=== PATIENT | male | born 1950 | race Caucasian/White ===

== ENCOUNTER 2024-07-09 10:14 | Inpatient (IN) ==
--- NOTE | 2024-07-09 11:09 | Emergency Department Note ---
Impression & Plan SOB (shortness of breath), Transaminitis, Cough, Hypoxia ED Provider Note Provider: Rell Hicks MD DATE OF SERVICE: 07/09/2024 CHIEF COMPLAINT: Shortness of breath HISTORY OF PRESENT ILLNESS: Patient is a 74-year-old gentleman reports a history of heart issues [facility] due to [facility]ness of breath. Evidently last week or 2 has been more short of breath not eating well. Evidently his had difficulty getting around at this and actually had some difficulty getting to the cafeteria to eat and present. Extensive former prior smoker. Not eating and drinking much and feels thirsty. No leg swelling. Denies abdominal pain or significant chest pain. Again shortness of breath worse with exertion but no falls or syncope. Noted for medical staff at the infirmary at the jail to be hypoxic in the 80s and placed on mask at 10 L. Maybe a little bit of productive nature to the cough by his report. Denies confusion. PAST MEDICAL HISTORY: As noted above MEDICATIONS: Reviewed with the patient. Denies blood thinners. SOCIAL HISTORY: Former smoker, [facility] PHYSICAL EXAM: GENERAL: alert and oriented in no acute distress on stretcher with oxygen and guards at bedside Head: normocephalic and atraumatic EYES: No injection, discharge or icterus. EOMI. NECK: Trachea midline. ENT: Mucous membranes pink and moist. LUNGS: Airway patent. No retractions. Breath sounds grossly diminished faint crackles. HEART: Regular rate and rhythm. No chest wall tenderness ABDOMEN: Soft and non-tender, without guarding or rebound. SKIN: Acyanotic, warm, dry, without rashes EXTREMITIES: Without swelling, tenderness or deformity NEUROLOGICAL: No focal deficits. No aphasia. No facial droop or slurred speech. Ambulatory. EK bpm normal sinus rhythm. Left fascicular block with anterior T wave inversions. CONTINUOUS CARDIAC MONITORING: was ordered and showed a heart rate of 60s to 80s bpm in normal sinus rhythm Patient's laboratory studies and imaging reviewed. Differential includes Reactive airway disease, pneumonia, pneumothorax, COPD, CHF, infections, cardiac ischemia, pulmonary embolism, musculoskeletal, gastrointestinal, as well as other pathologies. IMPRESSION/MEDICAL DECISION MAKING: Patient with new oxygen requirement. Some history of smoking in the past. Denies significant chest pain. No significant swelling of the lower extremities. Received few 100 mL of IV fluid for EMS prior to arrival. Not swelling in the legs but reports a history of fluid overload. Do not see significant past medical records in our system here at the hospital. Blood work here with a slight leukocytosis 12.5. Hemoglobin 12.5 not severely diminished. Does have hypernatremia of 148. Creatinine 1.1 BUN elevated at 64. Question if there is some component of dehydration as he has had decreased intake and the high sodium here. Do incidentally note the bilirubin AST ALT and alkaline phosphatase are all just mildly elevated but not having significant pain in the right upper quadrant or nausea or vomiting by his report. Does not seem consistent with necessarily acute cholecystitis. May be in relation to his general illness and dehydration. Do not feel we need additional abdominal imaging emergently at this time in the ER. Troponin and BNP completed as well as COVID test. CT angiogram of the chest given his limited mobility and shortness of breath weaned to 4 L here does not show evidence of a pulmonary embolism but some pneumomediastinum without clear etiology as well as some circumferential thickening around the esophagus and interstitial thickening and airspace opacities questioning pulmonary fibrosis are noted. BNP not significantly elevated 62 and troponin 48.5. Will give additional 500 cc IV fluid bolus. Will cover empirically with a dose of Zosyn for any underlying infectious pathology. Discussed with pulmonary Dr. Watts the findings and testing results and agree with him that likely a little bit of barotrauma from cough caused the slight pneumomediastinum. Will avoid positive pressure/flutter valve and utilize antitussives to help with cough and discussion with pulmonary. Will trial a dose of steroid and based on inflammatory markers (ESR/CRP) if elevated would continue the steroids. Will bring in for hydration and weaning of his oxygen. Hospitalist was contacted. Do not believe this represents Boerhaave syndrome or esophageal perforation. DIAGNOSIS: Hypoxia, hyponatremia, dehydration, cough, pneumomediastinum DISPOSITION: Hospitalist will evaluate Patient was agreeable with this plan. Critical Care I have personally spent 48 minutes of critical care time in the direct management of this patient. This includes bedside care, interpretation of diagnostic studies, and testing, discussion with consultants, patient, and other required patient management activities. These 48 minutes is in excess of all separately billable procedures. Past Med/Surg History Problem List (Updated 07/09/24 @ 16:10 by Rell Hicks M.D.) Hypoxia (Acute) Cough (Acute) Transaminitis (Acute) GERD (gastroesophageal reflux disease) HTN (hypertension) SOB (shortness of breath) (Acute) Chest pain (Acute) Unstable angina (Acute) Unstable angina (Acute) Surgical History (Updated 07/09/24 @ 15:16 by CAMILLE Dennis) H/O shoulder surgery Family History (Updated 07/09/24 @ 15:16 by CAMILLE Dennis) Other Cancer Social History Smoking Status: Former smoker Feels Safe at Home: Yes Allergies Allergies Allergy/AdvReac Type Severity Reaction Status Date / Time SODIUM PENTANYL Allergy Severe violence Uncoded 07/14/14 02:32 Home Meds Home Medications Medication Instructions Recorded Confirmed atorvastatin 40 mg tablet 40 mg PO HS #0 tabs 07/14/14 07/09/24 amlodipine 10 mg tablet 10 mg PO DAILY 07/09/24 07/09/24 Results & Data (ED) Vital Signs Vital Signs - 24 hr 07/09/24 10:25 07/09/24 10:26 07/09/24 10:30 Temperature 37.4 C Temperature Source Oral Pulse Rate 76 81 Pulse Rate from SpO2 Sensor Respiratory Rate 20 Respiratory Effort / Characteristics Short of Breath Blood Pressure 97/59 L 117/70 Blood Pressure Mean 71 84 Pulse Oximetry 96 Oxygen Delivery Method Room Air Oxygen Flow Rate Sepsis Recent Fever Within 48 Hours No Sepsis New/Unexplained Change in Mental Status No Sepsis Action Taken by Nursing No Action Required Oxygen Flow Rate - Titration Pulse Oximetry Post Tiitration 07/09/24 10:36 07/09/24 10:48 07/09/24 10:48 Temperature Temperature Source Pulse Rate 73 Pulse Rate from SpO2 Sensor 73 Respiratory Rate 20 Respiratory Effort / Characteristics Blood Pressure Blood Pressure Mean Pulse Oximetry 98 87 L 87 L Oxygen Delivery Method Nasal Cannula Nasal Cannula Oxygen Flow Rate 2 2 Sepsis Recent Fever Within 48 Hours Sepsis New/Unexplained Change in Mental Status Sepsis Action Taken by Nursing Oxygen Flow Rate - Titration 4 Pulse Oximetry Post Tiitration 90 07/09/24 10:57 07/09/24 11:00 07/09/24 11:03 Temperature Temperature Source Pulse Rate 76 74 Pulse Rate from SpO2 Sensor 76 74 Respiratory Rate 19 23 Respiratory Effort / Characteristics Blood Pressure 137/81 Blood Pressure Mean 109 Pulse Oximetry 90 96 Oxygen Delivery Method Oxygen Flow Rate Sepsis Recent Fever Within 48 Hours Sepsis New/Unexplained Change in Mental Status Sepsis Action Taken by Nursing Oxygen Flow Rate - Titration Pulse Oximetry Post Tiitration 07/09/24 11:30 07/09/24 11:30 07/09/24 11:46 Temperature Temperature Source Pulse Rate 77 Pulse Rate from SpO2 Sensor 77 Respiratory Rate 17 Respiratory Effort / Characteristics Blood Pressure 171/72 H Blood Pressure Mean 93 Pulse Oximetry 95 96 Oxygen Delivery Method Nasal Cannula Oxygen Flow Rate 4 Sepsis Recent Fever Within 48 Hours Sepsis New/Unexplained Change in Mental Status Sepsis Action Taken by Nursing Oxygen Flow Rate - Titration 2 Pulse Oximetry Post Tiitration 93 07/09/24 11:48 07/09/24 12:00 07/09/24 12:03 Temperature Temperature Source Pulse Rate 74 76 Pulse Rate from SpO2 Sensor 74 77 Respiratory Rate 29 H 42 H Respiratory Effort / Characteristics Blood Pressure 146/86 H Blood Pressure Mean 106 Pulse Oximetry 90 85 L Oxygen Delivery Method Oxygen Flow Rate Sepsis Recent Fever Within 48 Hours Sepsis New/Unexplained Change in Mental Status Sepsis Action Taken by Nursing Oxygen Flow Rate - Titration Pulse Oximetry Post Tiitration 07/09/24 12:21 07/09/24 12:30 07/09/24 12:30 Temperature Temperature Source Pulse Rate 66 Pulse Rate from SpO2 Sensor 66 Respiratory Rate 20 Respiratory Effort / Characteristics Blood Pressure 132/76 132/76 Blood Pressure Mean 99 99 Pulse Oximetry 97 Oxygen Delivery Method Oxygen Flow Rate Sepsis Recent Fever Within 48 Hours Sepsis New/Unexplained Change in Mental Status Sepsis Action Taken by Nursing Oxygen Flow Rate - Titration Pulse Oximetry Post Tiitration 07/09/24 12:35 Temperature Temperature Source Pulse Rate 67 Pulse Rate from SpO2 Sensor 67 Respiratory Rate 34 H Respiratory Effort / Characteristics Blood Pressure Blood Pressure Mean Pulse Oximetry 92 Oxygen Delivery Method Oxygen Flow Rate Sepsis Recent Fever Within 48 Hours Sepsis New/Unexplained Change in Mental Status Sepsis Action Taken by Nursing Oxygen Flow Rate - Titration Pulse Oximetry Post Tiitration Laboratory Data 07/09/24 11:00 07/09/24 11:00 Lab Results 07/09/24 07/09/24 Range/Units 11:00 11:12 WBC 12.51 H (4.8-10.8) K/ul RBC 4.64 L (4.70-6.10) M/uL Hgb 12.5 L (14.0-18.0) g/dl POC Hgb 12.6 L (14.0-18.0) g/dl Hct 40.0 L (42.0-52.0) % POC Hct 37 L (42-52) % MCV 86.2 (80.0-100.0) fL MCH 26.9 (25.0-34.0) pg MCHC 31.3 L (32.0-36.0) g/dL RDW Std Deviation 45.1 (36.4-46.3) fL RDW Coeff of Allen 16.1 H (11.5-14.5) % Plt Count 474 H (130-400) K/uL MPV 9.3 L (9.4-12.4) fL Immature Gran % (Auto) 0.9 % Neut % (Auto) 84.2 % Lymph % (Auto) 6.6 % Garvin % (Auto) 7.4 % Eos % (Auto) 0.6 % Baso % (Auto) 0.3 % Neut # (Auto) 10.52 H (1.40-6.50) K/uL Lymph # (Auto) 0.83 L (1.20-3.40) K/uL Garvin # (Auto) 0.93 H (0.11-0.59) K/uL Eos # (Auto) 0.08 (0.00-0.50) K/uL Baso # (Auto) 0.04 (0.00-0.20) K/uL Immature Gran # (Auto) 0.11 (0.01-0.20) K/uL PT 13.8 H (9.0-12.0) Seconds INR 1.3 H (0.9-1.1) APTT 33 H (21-31) Seconds PTT Ratio 1.2 POC Sodium 149 H (135-144) mmol/L Sodium 148 H (136-145) mmol/L POC Potassium 4.1 (3.3-5.0) mmol/L Potassium 4.1 (3.5-5.1) mmol/L POC Chloride 115 H (101-112) mmol/L Chloride 112 H (98-107) mmol/L Carbon Dioxide 28 (21-32) mmol/L POC Total CO2 25 (24-31) mmol/L Anion Gap 8 (3-11) POC Anion Gap 13.0 L (16-25) mmol/L POC BUN 54 H (7-18) mg/dl BUN 64 H (6-23) mg/dl Creatinine 1.18 (0.6-1.4) mg/dl POC Creatinine 1.4 H (0.6-1.3) mg/dl Est Cr Clr Drug Dosing 54.9 ml/min Est GFR ( Amer) 70.0 ml/min Est GFR (Non-Af Amer) 60.4 ml/min BUN/Creatinine Ratio 54.2 H (10-20) Glucose 114 H (70-99(Fasting)) mg/dl POC Glucose (other) 115 H (70-99) mg/dl Calcium 9.7 (8.6-10.3) mg/dl POC Ioniz Calcium Sindhu 1.19 (1.12-1.32) mmol/l Magnesium 2.8 H (1.7-2.4) mg/dl Total Bilirubin 3.3 H (0.2-1.0) mg/dl AST 106 H (13-39) U/L ALT 114 H (7-52) U/L Alkaline Phosphatase 187 H (34-104) U/L Troponin I High Sens 48.5 H (0-20) pg/ml B-Natriuretic Peptide 62 (0-100) pg/ml Total Protein 8.1 (6.0-8.3) gm/dl Albumin 3.1 L (3.4-5.0) gm/dl Globulin 5.0 H (2.5-4.0) gm/dl Albumin/Globulin Ratio 0.6 L (0.9-2) Procalcitonin 0.59 H (0-0.5) ng/ml Adenovirus (PCR) Not Detected (NotDetected) B. pertussis DNA (PCR) Not Detected (NotDetected) B.parapertussis DNA PCR Not Detected (NotDetected) C. pneumoniae DNA (PCR) Not Detected (NotDetected) Coronavirus OC43 (PCR) Not Detected (NotDetected) Coronavirus HKU1 (PCR) Not Detected (NotDetected) Coronavirus 229E (PCR) Not Detected (NotDetected) SARS-CoV-2 (PCR) Not Detected (NotDetected) Coronavirus NL63 (PCR) Not Detected (NotDetected) Human Metapneumovir PCR Not Detected (NotDetected) Influenza Type A (PCR) Not Detected (NotDetected) Influenza Type B (PCR) Not Detected (NotDetected) M. pneumoniae (PCR) Not Detected (NotDetected) Parainfluenza 1 (PCR) Not Detected (NotDetected) Parainfluenza 2 (PCR) Not Detected (NotDetected) Parainfluenza 3 (PCR) Not Detected (NotDetected) Parainfluenza 4 (PCR) Not Detected (NotDetected) RSV (PCR) Not Detected (NotDetected) Entero/Rhino (PCR) Not Detected (NotDetected) Administered Medications Discontinued Medications Piperacillin Sod/Tazobactam Sod (Zosyn) 4.5 gm in 100 mls @ 200 mls/hr IV NOW ONE Stop: 07/09/24 12:50 Last Infusion: 07/09/24 13:46 Dose: Infused Documented By: Admin: 07/09/24 12:47 Dose: 200 mls/hr Documented By: GIDEON Sodium Chloride (Nss) 500 mls @ 999 mls/hr IV .Q31M ONE Stop: 07/09/24 12:58 Last Infusion: 07/09/24 13:46 Dose: Infused Documented By: Admin: 07/09/24 12:48 Dose: 999 mls/hr Documented By: GIDEON Ioversol (Optiray 320 125ml) 119 ml IV ONCE ONE Stop: 07/09/24 11:20 Last Admin: 07/09/24 11:19 Dose: 119 ml Documented By: ANNA MARIE Methylprednisolone (Methylprednisolone 125 Mg/2 Ml Vial) 60 mg IV NOW STA Stop: 07/09/24 13:48 Last Admin: 07/09/24 15:15 Dose: 60 mg Documented By: BS Imaging Data Radiologist's Impression: Chest CTA 07/09/24 10:39 CHEST CTA for PULMONARY ARTERIES CT DOSE: 682.66 mGy.cm HISTORY: Dyspnea TECHNIQUE: Multiaxial CT images of the chest were performed following the intravenous administration of contrast to evaluate the pulmonary arteries. 3D/Maximal intensity projection images were also obtained. Sagittal and coronal reformations were also reviewed. A dose lowering technique was utilized adhering to the principles of ALARA. COMPARISON STUDY: None. FINDINGS: There are multiple old mild chronic compression deformity is within the mid to lower thoracic spine. No acute fractures identified. Postoperative changes within the left humeral head. Limited views of the upper abdomen demonstrate a normal spleen and right adrenal gland. The left adrenal gland is not included on this study. There are few punctate calcified granulomas within the spleen. Normal thyroid gland. Hewh-yc-[id number] circumferential thickening throughout the esophagus with a tiny hiatus hernia. No mediastinal or hilar lymphadenopathy. The heart is mildly enlarged. No pleural or pericardial effusions. Mild calcified plaque within the normal caliber thoracic aorta. No evidence for an aortic dissection. Mild coronary artery calcifications are noted. No filling defects within the pulmonary arteries to suggest a pulmonary embolus. No pneumothorax. Pneumomediastinum is noted. The central airways are patent. The etiology of the pneumomediastinum is not clearly identified on this study. There are low lung volumes with peripheral and basilar predominant interstitial thickening and scattered airspace opacities. The majority these airspace opacities demonstrate a groundglass appearance. There is mild bronchiectasis. There is a 6 mm left lower lobe nodule on image 56. IMPRESSION: 1. No evidence for a pulmonary embolus. 2. Pneumomediastinum without clear etiology on this study. 3. Xrvb-kh-[id number] circumferential thickening throughout the esophagus. 4. Peripheral interstitial thickening and patchy airspace opacities which favors pulmonary fibrosis. A superimposed viral/atypical pneumonitis also remains in the differential diagnosis. 5. A 6 mm nodule within the left lower lobe. Follow-up recommended as described above. 6. Additional findings as described above. Please refer to below summary of Fleischner criteria recommendations for follow- up of incidental CT nodules (Latrell Emanuel, Guidelines for management of small pulmonary nodules detected on CT scans: A statement from the Fleischner Society, Radiology 237: [phone].) SOLID NODULES Solitary nodule size: <6 mm * Low risk patients: no follow-up needed * high risk patients: optional CT at 12 months Solitary nodule size: 6-8 mm * Low risk patients: follow-up at 6-12 months, then consider further follow-up at 18-24 months * high risk patients: initial follow-up CT at 6-12 months and then at 18-24 months if no change Solitary nodule size: >8 mm * either low or high risk patients - consider follow-up CT at 3 months, and/or CT-PET, and/or biopsy Multiple nodules size: <6 mm * Low risk patients: no routine follow-up * high risk patients: optional CT at 12 months Multiple nodules size: 6-8 mm * Low risk patients: follow-up at 3-6 months, then consider further follow-up at 18-24 months * high risk patients: follow-up at 3-6 months, then at 18-24 months if no change Multiple nodules size: >8 mm * Low risk patients: follow-up at 3-6 months, then consider further follow-up at 18-24 months * high risk patients: follow-up at 3-6 months, then at 18-24 months if no change Note: newly detected indeterminate nodule in persons 35 years of age or older. * Low risk patients: minimal or absent history of smoking and/or other known risk factors * high risk patients: history of smoking or of other known risk factors (e.g. first degree relative with lung cancer, or exposure to asbestos, radon, uranium) * if a nodule up to 8 mm is partly solid or is ground glass further follow-up is required after 24 months to exclude possible slow growing adenocarcinoma (ARCHIE) SUBSOLID NODULES Solitary pure ground-glass nodule * nodule size <6 mm - no CT follow-up required * nodule size >=6 mm - follow-up CT at 6-12 months, then every 2 years until 5 years Solitary part-solid nodule * nodule size <6 mm - no CT follow-up required * nodule size >=6 mm - follow-up CT at 3-6 months. If unchanged, and solid component remains <6 mm, then annual follow-up for 5 years Multiple subsolid nodules * nodule size <6 mm - follow-up CT at 3-6 months, consider further follow-up at 2 and 4 years if stable * nodule size >=6 mm - follow-up CT at 3-6 months, subsequent management based on the most suspicious nodule(s) ACT 112: Positive. There are findings on this exam that require communication between the performing entity and the patient following Patient Test Result Information Act ([place] Act 112) guidelines. Electronically signed by: Duran Brandt M.D. 07/09/2024 11:54 AM Chest X-Ray 07/09/24 10:39 SINGLE VIEW CHEST CLINICAL HISTORY: Dyspnea FINDINGS: An AP, portable, upright chest radiograph is compared to study dated 07/14/2014. The examination is degraded by portable technique and apical lordotic positioning. The heart is enlarged. The pulmonary vasculature is not congested. There is diffuse interstitial thickening and subpleural reticulation. More focal airspace opacities are seen in the mid to lower lungs bilaterally, greater on the right. No large pleural effusion or pneumothorax is seen. The skeletal structures are osteopenic. The bony thorax is grossly intact. Postsurgical change is seen in the left proximal humerus. IMPRESSION: 1. Cardiomegaly without radiographic evidence of congestive failure. 2. Findings suggest chronic interstitial/fibrotic lung disease. This is new from 2013. 3. There are more focal airspace opacities in the mid to lower lungs bilaterally. A superimposed pneumonia is not excluded. Clinical correlation will be required and radiographic follow-up is recommended ACT 112: Negative or not required by law. Electronically signed by: Scout Felton M.D. 07/09/2024 11:08 AM Discharge Plan Visit Data Chief Complaint: Respiratory Problems Stated Complaint: SOB ED Provider: Rell Hicks Discharge Problem: SOB (shortness of breath), Transaminitis, Cough, Hypoxia Patient Disposition: Being Evaluated by Hospitalist Discharge Instructions Interventions: ED Discharge Assessment Last Done: 07/09/24 15:51
--- NOTE | 2024-07-09 11:10 | XRay Report ---
SINGLE VIEW CHEST CLINICAL HISTORY: Dyspnea FINDINGS: An AP, portable, upright chest radiograph is compared to study dated 07/14/2014. The examina tion is degraded by portable technique and apical lordotic positioning. The heart is enlarged. The pu lmonary vasculature is not congested. There is diffuse interstitial thickening and subpleural reticul ation. More focal airspace opacities are seen in the mid to lower lungs bilaterally, greater on the r ight. No large pleural effusion or pneumothorax is seen. The skeletal structures are osteopenic. The bony thorax is grossly intact. Postsurgical change is seen in the left proximal humerus. IMPRESSION: 1. Cardiomegaly without radiographic evidence of congestive failure. 2. Findings suggest chronic interstitial/fibrotic lung disease. This is new from 2013. 3. There are more focal airspace opacities in the mid to lower lungs bilaterally. A superimposed pneu monia is not excluded. Clinical correlation will be required and radiographic follow-up is recommende d ACT 112: Negative or not required by law. Electronically signed by: Scout Felton M.D. 07/09/2024 11:08 AM
--- NOTE | 2024-07-09 11:13 | Electrocardiogram Report ---
Test Reason : Blood Pressure : */* mmHG Vent. Rate : 73 BPM Atrial Rate : 73 BPM P-R Int : 136 ms QRS Dur : 118 ms QT Int : 432 ms P-R-T Axes : 9 -45 51 degrees QTcB Int : 475 ms Normal sinus rhythm Left anterior fascicular block Left ventricular hypertrophy with QRS widening ( R in aVL , [place] product ) Right bundle branch block with repolarization abnormality Abnormal ECG When compared with ECG of 14-Jul-2014 02:35, Left anterior fascicular block is now Present Right bundle branch block now present Confirmed by Shashi Jiang ([id number]) on 07/09/2024 11:12:51 AM Referred By: Confirmed By: Shashi Jiang
[2024-07-09] MEDS: OPTIRAY 320 125ml IV ONE (11:19)
[2024-07-09 11:26] LABS: iSTAT Creatinine 1.4 mg/dl (0.6-1.3); iSTAT Hemoglobin 12.6 g/dl (14.0-18.0); iSTAT Ionized Calcium 1.19 mmol/l (1.12-1.32); iSTAT Potassium 4.1 mmol/L (3.3-5.0)
[2024-07-09 11:56] LABS: Basophils # (auto) 0.04 K/uL (0.00-0.20); Basophils % (auto) 0.3 %; Eosinophils # (auto) 0.08 K/uL (0.00-0.50); Eosinophils % (auto) 0.6 %; Hemoglobin 12.5 g/dl (14.0-18.0); Immature Granulocytes # (auto) 0.11 K/uL (0.01-0.20); Immature Granulocytes % (auto) 0.9 %; Lymphocytes # (auto) 0.83 K/uL (1.20-3.40); Lymphocytes % (auto) 6.6 %; Mean Corpuscular Hemoglobin 26.9 pg (25.0-34.0); Mean Corpuscular Hgb Conc 31.3 g/dL (32.0-36.0); Mean Corpuscular Volume 86.2 fL (80.0-100.0); Mean Platelet Volume 9.3 fL (9.4-12.4); Monocytes # (auto) 0.93 K/uL (0.11-0.59); Monocytes % (auto) 7.4 %; Neutrophils # (auto) 10.52 K/uL (1.40-6.50); Neutrophils % (auto) 84.2 %; Platelet Count 474 K/uL (130-400); RDW Coefficient of Variation 16.1 % (11.5-14.5); RDW Standard Deviation 45.1 fL (36.4-46.3); Red Blood Count 4.64 M/uL (4.70-6.10); White Blood Count 12.51 K/ul (4.8-10.8)
--- NOTE | 2024-07-09 11:56 | CT Scan Report ---
CHEST CTA for PULMONARY ARTERIES CT DOSE: 682.66 mGy.cm HISTORY: Dyspnea TECHNIQUE: Multiaxial CT images of the chest were performed following the intravenous administration of contrast to evaluate the pulmonary arteries. 3D/Maximal intensity projection images were also obta ined. Sagittal and coronal reformations were also reviewed. A dose lowering technique was utilized a dhering to the principles of ALARA. COMPARISON STUDY: None. FINDINGS: There are multiple old mild chronic compression deformity is within the mid to lower thorac ic spine. No acute fractures identified. Postoperative changes within the left humeral head. Limited views of the upper abdomen demonstrate a normal spleen and right adrenal gland. The left adrenal glan d is not included on this study. There are few punctate calcified granulomas within the spleen. Laly l thyroid gland. Huzo-sp-qmggbeeh circumferential thickening throughout the esophagus with a tiny hia tus hernia. No mediastinal or hilar lymphadenopathy. The heart is mildly enlarged. No pleural or javan cardial effusions. Mild calcified plaque within the normal caliber thoracic aorta. No evidence for an aortic dissection. Mild coronary artery calcifications are noted. No filling defects within the pulm onary arteries to suggest a pulmonary embolus. No pneumothorax. Pneumomediastinum is noted. The centr al airways are patent. The etiology of the pneumomediastinum is not clearly identified on this study. There are low lung volumes with peripheral and basilar predominant interstitial thickening and scatt ered airspace opacities. The majority these airspace opacities demonstrate a groundglass appearance. There is mild bronchiectasis. There is a 6 mm left lower lobe nodule on image 56. IMPRESSION: 1. No evidence for a pulmonary embolus. 2. Pneumomediastinum without clear etiology on this study. 3. Blcz-nd-jihkjhtf circumferential thickening throughout the esophagus. 4. Peripheral interstitial thickening and patchy airspace opacities which favors pulmonary fibrosis. A superimposed viral/atypical pneumonitis also remains in the differential diagnosis. 5. A 6 mm nodule within the left lower lobe. Follow-up recommended as described above. 6. Additional findings as described above. Please refer to below summary of Fleischner criteria recommendations for follow-up of incidental CT n odules (Latrell Emanuel, Guidelines for management of small pulmonary nodules detected on CT scans: A sta tement from the Fleischner Society, Radiology 237: [id number].) SOLID NODULES Solitary nodule size: <6 mm * Low risk patients: no follow-up needed * high risk patients: optional CT at 12 months Solitary nodule size: 6-8 mm * Low risk patients: follow-up at 6-12 months, then consider further follow-up at 18-24 months * high risk patients: initial follow-up CT at 6-12 months and then at 18-24 months if no change Solitary nodule size: >8 mm * either low or high risk patients - consider follow-up CT at 3 months, and/or CT-PET, and/or biopsy Multiple nodules size: <6 mm * Low risk patients: no routine follow-up * high risk patients: optional CT at 12 months Multiple nodules size: 6-8 mm * Low risk patients: follow-up at 3-6 months, then consider further follow-up at 18-24 months * high risk patients: follow-up at 3-6 months, then at 18-24 months if no change Multiple nodules size: >8 mm * Low risk patients: follow-up at 3-6 months, then consider further follow-up at 18-24 months * high risk patients: follow-up at 3-6 months, then at 18-24 months if no change Note: newly detected indeterminate nodule in persons 35 years of age or older. * Low risk patients: minimal or absent history of smoking and/or other known risk factors * high risk patients: history of smoking or of other known risk factors (e.g. first degree relative with lung cancer, or exposure to asbestos, radon, uranium) * if a nodule up to 8 mm is partly solid or is ground glass further follow-up is required after 24 m onths to exclude possible slow growing adenocarcinoma (ARCHIE) SUBSOLID NODULES Solitary pure ground-glass nodule * nodule size <6 mm - no CT follow-up required * nodule size >=6 mm - follow-up CT at 6-12 months, then every 2 years until 5 years Solitary part-solid nodule * nodule size <6 mm - no CT follow-up required * nodule size >=6 mm - follow-up CT at 3-6 months. If unchanged, and solid component remains <6 mm, then annual follow-up for 5 years Multiple subsolid nodules * nodule size <6 mm - follow-up CT at 3-6 months, consider further follow-up at 2 and 4 years if sta ble * nodule size >=6 mm - follow-up CT at 3-6 months, subsequent management based on the most suspiciou s nodule(s) ACT 112: Positive. There are findings on this exam that require communication between the performing entity and the patient following Patient Test Result Information Act ([place] Act 112) guidelines. Electronically signed by: Duran Brandt M.D. 07/09/2024 11:54 AM
[2024-07-09 12:03] LABS: Albumin Globulin Ratio 0.6 (0.9-2); Albumin Level 3.1 gm/dl (3.4-5.0); BUN Creatinine Ratio 54.2 (10-20); Bilirubin,Total 3.3 mg/dl (0.2-1.0); Calcium 9.7 mg/dl (8.6-10.3); Creatinine Clr Calc Pharmacy 54.9 ml/min; Est GFR (Non-African American) 60.4 ml/min; Magnesium 2.8 mg/dl (1.7-2.4); Potassium 4.1 mmol/L (3.5-5.1); Total Protein 8.1 gm/dl (6.0-8.3)
[2024-07-09 12:12] LABS: Troponin I High Sensitivity 48.5 pg/ml (0-20)
[2024-07-09 12:18] LABS: INR 1.3 (0.9-1.1); Partial Thromboplastin Ratio 1.2; Partial Thromboplastin Time 33 Seconds (21-31); Prothrombin Time 13.8 Seconds (9.0-12.0)
[2024-07-09 12:32] LABS: Adenovirus PCR Not Detected (NotDetected); Bordetella parapertussis PCR Not Detected (NotDetected); Bordetella pertussis PCR Not Detected (NotDetected); Chlamydia pneumoniae PCR Not Detected (NotDetected); Coronavirus 229E PCR Not Detected (NotDetected); Coronavirus CoV-2 (COVID19)PCR Not Detected (NotDetected); Coronavirus HKU1 PCR Not Detected (NotDetected); Coronavirus NL63 PCR Not Detected (NotDetected); Coronavirus OC43PCR Not Detected (NotDetected); Human Metapneumovirus PCR Not Detected (NotDetected); Influenza A PCR Not Detected (NotDetected); Influenza B PCR Not Detected (NotDetected); Mycoplasma pneumoniae PCR Not Detected (NotDetected); Parainfluenza Virus 1 PCR Not Detected (NotDetected); Parainfluenza Virus 2 PCR Not Detected (NotDetected); Parainfluenza Virus 3 PCR Not Detected (NotDetected); Parainfluenza Virus 4 PCR Not Detected (NotDetected); Respiratory Syncytial VirusPCR Not Detected (NotDetected); Rhinovirus/Enterovirus PCR Not Detected (NotDetected)
[2024-07-09] MEDS: PIPERACILLIN/TAZOBACTAM 4.5 GM/100 ML BAG IV ONE (12:47)
[2024-07-09] MEDS: SODIUM CHLORIDE 0.9% 500 ML IV ONE (12:48)
--- NOTE | 2024-07-09 14:06 | History & Physical Report ---
Date of Service July 09, 2024 Assessment & Plan (1) SOB (shortness of breath): (2) HTN (hypertension): (3) GERD (gastroesophageal reflux disease): (4) Transaminitis: Plan Pt presents from [facility] with SOB that he describes as 'huffing and puffing' that has been intermittent, associated with going to the bathroom. He has the hardest time going to the bathroom; has to stop and lean on the table. He says this has started a few weeks ago. He reports that he has been coughing x 4-6 weeks with clear phlegm. Pt states that he started to feel pain in his chest. No fever. His throat is sore from coughing. Patient states that his appetite has not been the same over the past 4-5 weeks. Leukocytosis 12.51, biofire negative. Chest CTA revealed Pneumomediastinum without clear etiology on this study. This was discussed with Pulmonary who stated to avoid flutter valve and positive pressure. Pt is a previous smoker, stopped in 2019. Denies alcohol or recreational drug use. Pt will be admitted for further evaluation and management of his SOB/pneumomediastinum. Patient has fine crackles, will hold abx for now. ESR 102; will continue IV steroids. He also has dysuria, will check a UA/culture. SOB: Acute likely in setting of pulmonary fibrosis. H/O tobacco use Leukocytosis: 12.51; denies fever CXR: chronic interstitial/fibrotic lung disease. This is new from 2013. There are more focal airspace opacities in the mid to lower lungs bilaterally. A superimposed pneumonia is not excluded. Chest CTA: No evidence for a pulmonary embolus. Pneumomediastinum without clear etiology on this study. Lsdz-qv-loopimcd circumferential thickening throughout the esophagus. Peripheral interstitial thickening and patchy airspace opacities which favors pulmonary fibrosis. A superimposed viral/atypical pneumonitis also remains in the differential diagnosis. A 6 mm nodule within the left lower lobe. Reports cough with clear sputum. Received Zosyn IV in ED; will hold for now Received IV methylpred in ED; will continue 40 mg IV BID; reassess Biofire negative, Try steroid. Respiratory pathogen panel negative. ESR 102; trend in AM Check Procal and Lactate Pulmonology consulted; avoid positive pressure ventilation and flutter valve. Utilize antitussive; dextromethorphan ordered Check CBC+ Diff/BMP in AM Transaminitis: Acute LFT elevated: AST 106, Alk Phos 187 Obtain Lliver US Repeat LFT in AM If no improvement, will consider GI consult for further recommendations HTN: Chronic Need to confirm med list; LEANDRO Price to fax over. Was historically on Lisinopril normotensive in ED GERD: Chronic Need to confirm med list; LEANDRO Price to fax over. Was historically on omeprazole Disposition: PCP: LEANDRO Price Code Status: Full code VTE Prophylaxis: sheldon and scd for now I spent a total of 82 minutes coordinating, documenting, and providing care for this patient excluding time spent in the performance of separately billed services. All of the aforementioned completed while collaborating with the assigned attending physician for a full treatment plan. Please see their addendum for further details. History of Present Illness Chief Complaint: SOB Primary Care Provider: LEANDRO Michelle Pt presents from [facility] with SOB that he describes as 'huffing and puffing' that has been intermittent, associated with going to the bathroom. He has the hardest time going to the bathroom; has to stop and lean on the table. He says this has started a few weeks ago. He reports that he has been coughing x 4-6 wee ks with clear phlegm. Pt states that he started to feel pain in his chest. No fever. His throat is sore from coughing. Patient states that his appetite has not been the same over the past 4-5 weeks. Leukocytosis 12.51, biofire negative. Chest CTA revealed Pneumomediastinum without clear etiology on this study. This was discussed with Pulmonary who stated to avoid flutter valve and positive pressure. Pt is a previous smoker, stopped in 2019. Denies alcohol or recreational drug use. Pt denies chest pain, lightheadedness, dizziness, abdominal pain and tenderness, dysuria, falls and trauma. On examination, He is AAOx4 and in no apparent distress. He is on 3LNC but is able to communicate in complete sentences. The admitting attending, he heard fine crackles. Pt will be admitted for further evaluation and management of his SOB/pneumomediastinum. Patient has fine crackles, will hold abx for now. ESR 102; will continue IV steroids. He also has dysuria, will check a UA/culture. Allergies Allergy/AdvReac Type Severity Reaction Status Date / Time SODIUM PENTANYL Allergy Severe violence Uncoded 07/14/14 02:32 Home Medications Medication Instructions Recorded Confirmed Type atorvastatin 40 mg tablet 40 mg PO HS #0 tabs 07/14/14 07/09/24 History amlodipine 10 mg tablet 10 mg PO DAILY 07/09/24 07/09/24 History Past Med/Surg History Problem List (Updated 07/09/24 @ 15:16 by CAMILLE Dennis) Transaminitis GERD (gastroesophageal reflux disease) HTN (hypertension) SOB (shortness of breath) Chest pain (Acute) Unstable angina (Acute) Unstable angina (Acute) Surgical History (Updated 07/09/24 @ 15:16 by CAMILLE Dennis) H/O shoulder surgery Family History (Updated 07/09/24 @ 15:16 by CAMILLE Dennis) Other Cancer Social History Smoking Status: Former smoker Feels Safe at Home: Yes Review of Systems Review of Systems: Neuro: (-) Falls, trauma, slurred speech HEENT: (-) MCLEAN, dizziness, dysphagia, visual or auditory changes CV: (-) CP, palpitations, swelling Resp: (-) SOB GI: (-) appetite changes, N/V/D, bowel changes : (-) urinary changes Skin: (-) rashes Psych: (-) anxiety, depression Physical Exam Physical Exam: See Dr. Ferreira admitting attending's addendum for physical examination findings Results & Data Results & Data Vital Signs (Past 12 Hours) Vital Signs Temp Pulse Resp BP Pulse Ox O2 Del Method O2 Flow Rate 07/09/24 12:35 67 34 H 92 07/09/24 12:30 132/76 07/09/24 12:30 132/76 07/09/24 12:21 66 20 97 07/09/24 12:03 76 42 H 85 L 07/09/24 12:00 146/86 H 07/09/24 11:48 74 29 H 90 07/09/24 11:46 96 Nasal Cannula 4 07/09/24 11:30 77 17 95 07/09/24 11:30 171/72 H 07/09/24 11:03 74 23 96 0823/24 11:00 137/81 07/09/24 10:57 76 19 90 07/09/24 10:48 87 L Nasal Cannula 2 07/09/24 10:48 87 L Nasal Cannula 2 07/09/24 10:36 73 20 98 07/09/24 10:30 117/70 07/09/24 10:26 37.4 C 81 20 97/59 L 96 Room Air 07/09/24 10:25 76 Laboratory Results Short CBC 07/09/24 Range/Units 11:00 WBC 12.51 H (4.8-10.8) K/ul Hgb 12.5 L (14.0-18.0) g/dl Hct 40.0 L (42.0-52.0) % Plt Count 474 H (130-400) K/uL BMP 07/09/24 11:00 Sodium 148 H Potassium 4.1 Chloride 112 H Carbon Dioxide 28 BUN 64 H Creatinine 1.18 Glucose 114 H Calcium 9.7 Liver Function 07/09/24 Range/Units 11:00 Total Bilirubin 3.3 H (0.2-1.0) mg/dl AST 106 H (13-39) U/L ALT 114 H (7-52) U/L Alkaline Phosphatase 187 H (34-104) U/L Albumin 3.1 L (3.4-5.0) gm/dl Diagnostic Findings Chest CTA 07/09/24 10:39 CHEST CTA for PULMONARY ARTERIES CT DOSE: 682.66 mGy.cm HISTORY: Dyspnea TECHNIQUE: Multiaxial CT images of the chest were performed following the intravenous administration of contrast to evaluate the pulmonary arteries. 3D/Maximal intensity projection images were also obtained. Sagittal and coronal reformations were also reviewed. A dose lowering technique was utilized adhering to the principles of ALARA. COMPARISON STUDY: None. FINDINGS: There are multiple old mild chronic compression deformity is within the mid to lower thoracic spine. No acute fractures identified. Postoperative changes within the left humeral head. Limited views of the upper abdomen demonstrate a normal spleen and right adrenal gland. The left adrenal gland is not included on this study. There are few punctate calcified granulomas within the spleen. Normal thyroid gland. Wfdh-kz-jzeeokno circumferential thickening throughout the esophagus with a tiny hiatus hernia. No mediastinal or hilar lymphadenopathy. The heart is mildly enlarged. No pleural or pericardial effusions. Mild calcified plaque within the normal caliber thoracic aorta. No evidence for an aortic dissection. Mild coronary artery calcifications are noted. No filling defects within the pulmonary arteries to suggest a pulmonary embolus. No pneumothorax. Pneumomediastinum is noted. The central airways are patent. The etiology of the pneumomediastinum is not clearly identified on this study. There are low lung volumes with peripheral and basilar predominant interstitial thickening and scattered airspace opacities. The majority these airspace opacities demonstrate a groundglass appearance. There is mild bronchiectasis. There is a 6 mm left lower lobe nodule on image 56. IMPRESSION: 1. No evidence for a pulmonary embolus. 2. Pneumomediastinum without clear etiology on this study. 3. Nfmz-be-uzaopbgw circumferential thickening throughout the esophagus. 4. Peripheral interstitial thickening and patchy airspace opacities which favors pulmonary fibrosis. A superimposed viral/atypical pneumonitis also remains in the differential diagnosis. 5. A 6 mm nodule within the left lower lobe. Follow-up recommended as described above. 6. Additional findings as described above. Please refer to below summary of Fleischner criteria recommendations for follow- up of incidental CT nodules (Latrell Emanuel, Guidelines for management of small pulmonary nodules detected on CT scans: A statement from the Fleischner Society, Radiology 237: [phone].) SOLID NODULES Solitary nodule size: <6 mm * Low risk patients: no follow-up needed * high risk patients: optional CT at 12 months Solitary nodule size: 6-8 mm * Low risk patients: follow-up at 6-12 months, then consider further follow-up at 18-24 months * high risk patients: initial follow-up CT at 6-12 months and then at 18-24 months if no change Solitary nodule size: >8 mm * either low or high risk patients - consider follow-up CT at 3 months, and/or CT-PET, and/or biopsy Multiple nodules size: <6 mm * Low risk patients: no routine follow-up * high risk patients: optional CT at 12 months Multiple nodules size: 6-8 mm * Low risk patients: follow-up at 3-6 months, then consider further follow-up at 18-24 months * high risk patients: follow-up at 3-6 months, then at 18-24 months if no change Multiple nodules size: >8 mm * Low risk patients: follow-up at 3-6 months, then consider further follow-up at 18-24 months * high risk patients: follow-up at 3-6 months, then at 18-24 months if no change Note: newly detected indeterminate nodule in persons 35 years of age or older. * Low risk patients: minimal or absent history of smoking and/or other known risk factors * high risk patients: history of smoking or of other known risk factors (e.g. first degree relative with lung cancer, or exposure to asbestos, radon, uranium) * if a nodule up to 8 mm is partly solid or is ground glass further follow-up is required after 24 months to exclude possible slow growing adenocarcinoma (ARCHIE) SUBSOLID NODULES Solitary pure ground-glass nodule * nodule size <6 mm - no CT follow-up required * nodule size >=6 mm - follow-up CT at 6-12 months, then every 2 years until 5 years Solitary part-solid nodule * nodule size <6 mm - no CT follow-up required * nodule size >=6 mm - follow-up CT at 3-6 months. If unchanged, and solid component remains <6 mm, then annual follow-up for 5 years Multiple subsolid nodules * nodule size <6 mm - follow-up CT at 3-6 months, consider further follow-up at 2 and 4 years if stable * nodule size >=6 mm - follow-up CT at 3-6 months, subsequent management based on the most suspicious nodule(s) ACT 112: Positive. There are findings on this exam that require communication between the performing entity and the patient following Patient Test Result Information Act ([place] Act 112) guidelines. Electronically signed by: Duran Brandt M.D. 07/09/2024 11:54 AM Chest X-Ray 07/09/24 10:39 SINGLE VIEW CHEST CLINICAL HISTORY: Dyspnea FINDINGS: An AP, portable, upright chest radiograph is compared to study dated 07/14/2014. The examination is degraded by portable technique and apical lordotic positioning. The heart is enlarged. The pulmonary vasculature is not congested. There is diffuse interstitial thickening and subpleural reticulation. More focal airspace opacities are seen in the mid to lower lungs bilaterally, greater on the right. No large pleural effusion or pneumothorax is seen. The skeletal structures are osteopenic. The bony thorax is grossly intact. Postsurgical change is seen in the left proximal humerus. IMPRESSION: 1. Cardiomegaly without radiographic evidence of congestive failure. 2. Findings suggest chronic interstitial/fibrotic lung disease. This is new from 2014. 3. There are more focal airspace opacities in the mid to lower lungs bilaterally. A superimposed pneumonia is not excluded. Clinical correlation will be required and radiographic follow-up is recommended ACT 112: Negative or not required by law. Electronically signed by: Scout Felton M.D. 07/09/2024 11:08 AM Code Status & VTE Plan Code Status Full Code in the event of cardiac or respiratory arrest VTE Prophylaxis Plan VTE Prophylaxis will be ordered: Yes Supervising Physician Co-Signing Physician Notes 74-year-old male with PMH of GERD, HTN presented to the ED for shortness of breath. Patient reports for the last 5 to 6 weeks, has been having shortness of breath and not eating very well/not able to move around much. He also reports having bouts of acute shortness of breath and cough since about the same duration. Patient denies nausea or vomiting. Patient reports chest pain after bouts of cough. Patient denies fever. Patient reports clear sputum. Labs reviewed, WBC minimally elevated, sodium minimally elevated, chloride elevated, LFT elevated. Respiratory pathogen panel negative. Troponin elevated at 48 but flat trend around 48-47. CRP elevated at 26 and ESR elevated at 102. CTA chest with no evidence of PE. Pneumomediastinum noted, no clear etiology noted. Peripheral interstitial thickening and patchy airspace opacities paul ggestive of pulmonary fibrosis. 6 mm nodule within the left lower lobe noted. Will need to follow-up chest imaging in 6 to 12 months time. Active problems: Pneumomediastinum likely secondary to cough: Patient denies nausea or vomiting. Patient is having poor appetite for several weeks. Pulmonology consulted, avoid positive pressure ventilation and flutter valve. Utilize antitussive. Try st eroid. Respiratory pathogen panel negative. ESR and CRP elevated. Mild leukocytosis: Patient denies fever. Patient reports cough with clear sputum. Monitor off antibiotic. Get procalcitonin and lactate. Follow labs in AM. Mild hypernatremia: Gentle IV fluid, follow labs. Transaminitis: LFT elevation noted, will get US liver, LFT in a.m., if not improving consider GI consult. Likely demand ischemia: Likely secondary to progressive shortness of breath in the setting of pulmonary fibrosis. Troponin trend is flat, continue with telemetry monitoring for now. On exam: GENERAL: Alert and oriented x3. NAD, on 3L. HEENT: No pallor, no icterus. Pupils equal, round and reactive to light. Oral mucosa moist. NECK: No JVD, no neck masses. HEART: S1 and S2 heard. Regular rate and rhythm. No murmur, no gallop. RESPIRATORY SYSTEM: Normal AP diameter. No accessory muscle use. No wheezing, fine b/l mid and basal crackles. ABDOMEN: Soft, bowel sounds present, nontender, no distention. CENTRAL NERVOUS SYSTEM: No facial droop. Speech is clear. Obeys simple commands. Moves extremities. EXTREMITIES: No edema, no erythema seen. I have seen and examined the patient and have discussed the case with the provider above. I agree with the assessment and plan as stated.
[2024-07-09] MEDS ORDERED: guaiFENesin/DEXTROM SYRUP 100MG/10MG 5ML UDC PO PRN (15:14)
[2024-07-09] MEDS: methylPREDNISolone 125 MG/2 ML VIAL IV STA (15:15)
--- NOTE | 2024-07-09 16:50 | Ultrasound Report ---
ULTRASOUND RIGHT UPPER QUADRANT ABDOMEN CLINICAL HISTORY: Elevated hepatic transaminases. COMPARISON STUDY: No priors. TECHNIQUE: Real-time, grayscale, and color flow sonography of the right upper quadrant of the abdomen was performed. Images are reviewed in the transverse and longitudinal planes. FINDINGS: Liver: The liver is normal in size and heterogeneous in echotexture. There is no intrahepatic biliary ductal dilatation. The main portal vein is patent. A 1.3 cm cyst is noted in the right lobe. An inde terminant 7.1 cm cystic focus is seen between the right lobe of the liver and the right kidney. Gallbladder: The gallbladder is filled with stones and sludge. There is no gallbladder wall thickenin g or pericholecystic fluid. A sonographic Duggan's sign is reportedly absent. The common bile duct me asures up to 0.4 cm in diameter. Pancreas: Visualized portions of the pancreatic head and body are normal in appearance. The splenic v ein is patent. Right kidney: Survey images of the right kidney demonstrate normal size and echotexture. There is no hydronephrosis. Ascites: None. IMPRESSION: 1. Gallstones and biliary sludge with no sonographic evidence of acute cholecystitis. 2. Hepatic echotexture is heterogeneous. 3. An indeterminant 7.1 cm cystic focus is seen between the liver and the right kidney. This is not h ighly suspicious. If warranted this could be further assessed with an abdominal CT scan. ACT 112: Negative or not required by law. Electronically signed by: Scout Felton M.D. 07/09/2024 4:49 PM
[2024-07-09] MEDS: SODIUM CHLORIDE 0.45 % 1,000 ML IV SCH (18:35)
[2024-07-09] MEDS ORDERED: guaiFENesin 600 MG TABCR PO SCH (21:00)
[2024-07-09] MEDS: guaiFENesin/DEXTROM SYRUP 100MG/10MG 5ML UDC PO SCH (21:13)
[2024-07-09 21:52] LABS: Appearance Urine Turbid (Clear); Bacteria Urine Automated None Seen (None Seen); Bilirubin Urine 2+ (Negative); Blood Urine Negative (Negative); Cast Urine Automated 0-2 /lpf (0-2); Color Urine Dark Yellow; Epithelial Cell Urine Auto 0-2 /hpf (0-2); Glucose Urine UA Negative (Negative); Ketones Urine Negative (Negative); Leukocyte Esterase Urine Trace (Negative); Nitrite Urine Positive (Negative); Protein Urine 1+ (Negative); RBC Urine Automated 0-2 /hpf (0-2); Specific Gravity Urine > 1.045 (1.000-1.030); Uric Acid Crystals Urine Present (None Prsent); Urobilinogen Urine Positive (Negative); WBC Urine Automated 0-5 /hpf (0-5)
[2024-07-09] MEDS ORDERED: Nursing to Pharmacy Communication SCH (22:00)
[2024-07-10] MEDS ORDERED: Nursing to Pharmacy Communication SCH (00:45)
[2024-07-10] MEDS: methylPREDNISolone 40 MG in SYRINGE 0 ML IV SCH (01:47)
[2024-07-10 06:16] LABS: Hematocrit (blood only) 35.4 % (42.0-52.0); Hemoglobin 11.4 g/dl (14.0-18.0); Mean Corpuscular Hemoglobin 27.7 pg (25.0-34.0); Mean Corpuscular Hgb Conc 32.2 g/dL (32.0-36.0); Mean Corpuscular Volume 85.9 fL (80.0-100.0); Mean Platelet Volume 9.2 fL (9.4-12.4); Platelet Count 432 K/uL (130-400); RDW Coefficient of Variation 16.1 % (11.5-14.5); RDW Standard Deviation 44.4 fL (36.4-46.3); Red Blood Count 4.12 M/uL (4.70-6.10)
[2024-07-10 07:50] LABS: Alanine Aminotransferase 101 U/L (7-52); Albumin Level 2.7 gm/dl (3.4-5.0); Alkaline Phosphatase 152 U/L (34-104); Anion Gap 5 (3-11); BUN Creatinine Ratio 53.6 (10-20); Bilirubin,Total 1.7 mg/dl (0.2-1.0); Blood Urea Nitrogen 52 mg/dl (6-23); Carbon Dioxide 27 mmol/L (21-32); Chloride 108 mmol/L (98-107); Creatinine Clr Calc Pharmacy 66.8 ml/min; Est GFR (African American) 88.8 ml/min; Est GFR (Non-African American) 76.6 ml/min; Glucose 107 mg/dl (70-99(Fasting)); Sodium 140 mmol/L (136-145); Total Protein 7.5 gm/dl (6.0-8.3)
[2024-07-10 08:47] LABS: Base Excess ABG 0.7 mEq/L (-9-1.8); HCO3 ABG 24 mmol/L (19-24); Oxygen Saturation ABG 94.4 % (90-95); PCO2 ABG 35 mmHg (35-46); PO2 ABG 68 mmHg (80-95); pH ABG 7.45 (7.35-7.45)
[2024-07-10 08:54] LABS: Allen Test Pos (Pos)
[2024-07-10 09:09] LABS: Bilirubin Direct 0.8 mg/dl (0-0.2); Potassium 3.9 mmol/L (3.5-5.1)
--- NOTE | 2024-07-10 09:11 | XRay Report ---
INSPIRATORY/EXPIRATORY CHEST X-RAYS CLINICAL HISTORY: Hypoxia. FINDINGS: AP, portable, upright chest radiographs are performed in inspiration and expiration. Compar ashley is made to chest x-ray and chest CT dated 07/09/2024. The heart is enlarged. There is prominence of the pulmonary vasculature. Again seen is diffuse interstitial thickening and subpleural reticulati on. More focal airspace opacities are seen in the mid to lower lungs bilaterally. No large pleural ef fusion or pneumothorax is identified. Pneumomediastinum seen by CT is not apparent on x-ray. The skel etal structures are osteopenic. The bony thorax is grossly intact. Postsurgical change is seen in the left proximal humerus. IMPRESSION: 1. Cardiomegaly with prominence of the pulmonary vasculature. Clinically clinically for evidence of f luid overload/congestive change. 2. Findings of chronic interstitial/fibrotic lung disease are again suggested. Superimposed airspace opacities at the lung bases are similar to yesterday and a superimposed infectious/inflammatory pneum onitis is not excluded. 3. Pneumomediastinum seen by CT is not apparent on x-ray. ACT 112: Negative or not required by law. Electronically signed by: Scout Felton M.D. 07/10/2024 9:09 AM
[2024-07-10 10:01] LABS: Troponin I High Sensitivity 28.5 pg/ml (0-20)
[2024-07-10] MEDS: FAMOTIDINE 20 MG TAB PO SCH (10:09)
[2024-07-10 10:23] LABS: Thyroid Stimulating Hormone 1.007 uIu/ml (0.300-4.500)
[2024-07-10] MEDS: FUROSEMIDE INJ 20 MG/2 ML VIAL IV ONE (10:55)
--- NOTE | 2024-07-10 12:37 | Hospitalist Progress Note ---
Date of Service July 10, 2024 Assessment & Plan (1) Acute hypoxic respiratory failure: (2) Diffuse interstitial pulmonary fibrosis: (3) Pneumomediastinum: (4) Transaminitis: (5) Cholelithiasis: (6) HTN (hypertension): Plan Patient is critically ill with increasing hypoxia in the setting of pulmonary fibrosis. Now appears to have some pulmonary edema and congestion most likely from fluid resuscitation. Patient requires hospital level care, specialty evaluation and IV medications. Stat ABG, chest x-ray, troponin, BNP reviewed as mentioned above Saline lock IV fluids, 1 dose of IV Lasix Check echocardiogram Support with oxygen/OxyMask, if absolutely necessary can go to high flow nasal cannula, however attempting to avoid positive pressure oxygen due to reported pneumomediastinum Pneumomediastinum not seen on chest x-ray today Transaminitis has improved, liver ultrasound shows evidence of cholelithiasis and sludge but no evidence of cholecystitis or obstruction. Suspect patient may have had some blockage of sludge which is now passed. Will continue to monitor LFTs for now, if patient having more significant symptoms, LFTs worsen will consider MRCP versus GI consultation Continue steroids for interstitial fibrosis Pulmonary consultation pending Continue mucolytic Schedule antitussive 58 minutes spent in assessing patient, reviewing records, coordinating care, medical interventions, diagnostics interpretation Admission and Anticipated Discharge Date Admission Date: July 09, 2024 Subjective Patient acutely hypoxic this morning. Feels short of breath but not overly dyspneic. Reports had a sharp shooting pain in his chest with breakfast. Physical Exam Physical Exam: Constitutional: Alert ill in appearance but no significant distress HEENT: Mucous membranes moist. Lungs: Decreased breath sounds, poor airflow, diffuse crackles throughout, no significant wheezes, tachypnea, no accessory muscle use CV: S1-S2, regular Abdomen: Soft, nontender, nondistended Extremities: No significant edema Neuro: No focal deficits Psych: Cooperative, normal mood Results & Data Results & Data Vital Signs (Past 12 Hours) Vital Signs Temp Pulse Pulse Resp BP Pulse Ox O2 Del Method 07/10/24 10:52 26 H 94 Nasal Cannula 07/10/24 09:05 20 94 Oxymask 07/10/24 08:16 36.5 C 67 22 137/70 91 Oxymask 07/10/24 08:00 56 L 07/10/24 08:00 Nasal Cannula 07/10/24 03:15 36.5 C 56 L 19 114/65 95 Nasal Cannula O2 Flow Rate 07/10/24 10:52 4 07/10/24 09:05 10 07/10/24 08:16 10 07/10/24 08:00 07/10/24 08:00 07/10/24 03:15 3 Diagnostic Findings Ben diagnostics WBCs 12.2, improved Stat ABG reviewed, no evidence of hypercarbia, pO2 68 Personally reviewed stat portable chest x-ray, increasing vascular congestion when compared to yesterday LFTs reviewed, improving Troponin 28.5, decreased from previous BNP 168 significantly increased C-reactive protein 26
--- NOTE | 2024-07-10 13:49 | Pulmonary Consultation ---
Date of Consultation July 10, 2024 Assessment & Plan (1) Idiopathic interstitial pneumonia: Patient with evidence of idiopathic interstitial pneumonia which is likely chronic. Suspect undifferentiated diffuse parenchymal lung disease. Etiologies are broad including chronic eosinophilic pneumonia given the subpleural groundglass opacities versus NSIP versus chronic aspiration and an atypical pattern of UIP/IPF. Other possibilities include chronic atypical infection such as nontuberculous Mycobacterium and widespread pulmonary malignancy. Would benefit from outpatient PFTs and and outpatient rheumatologic workup. Empiric steroids reasonable at this time. Will add azithromycin for possible superimp osed atypical bacterial infection. Respiratory viral panel was negative on admission. Follow-up HRCT as an outpatient also indicated in the next 4 to 6 weeks. (2) Pneumomediastinum: Patient with spontaneous pneumomediastinum likely secondary to cough. Agree with codeine as needed to suppress cough is much as possible. Other etiologies include microperforation related to esophageal wall thickening noted on CT chest. (3) Thickening of esophagus: Patient endorses a 30 pound weight loss with decreased appetite. Highly suspicious for possible malignancy. Will start the patient on Protonix 40 mg twice daily. GI consulted for possible EGD in the next few days once he stabilizes. Consider CT of the abdomen pelvis, but will defer to GI. Plan Thank you for the consult. Will follow with you. Please call with questions. History of Present Illness Reason for Consultation: Pneumomediastinum and possible ILD Attending Physician: Buster Medina DO History of Present Illness 74-year-old male who resides at [facility] presenting to the ER for shortness of breath. Shortness of breath has been largely intermittent especially with exertion. Patient also notes that his appetite has been poor over the last month with about 30 pounds of weight loss. Denies any hemoptysis. Does endorse a dry cough. Denies any overt GERD symptoms. Chest CTA revealed subpleural groundglass opacities in areas of honeycombing. Pneumomediastinum was noted. Moderate circumferential thickening of the esophagus was noted diffusely. 6 mm nodule in the left lower lobe. Respiratory bio fire panel was negative on admission. Patient was started on methylprednisone 40 mg twice daily by the hospitalist service. Patient is a former smoker and quit in 2019. Smoked 54 pack years. Per nursing, the patient had a desaturation event to the 70s earlier today. He is currently on 4 L of supplemental oxygen via nasal cannula. Allergies Allergy/AdvReac Type Severity Reaction Status Date / Time SODIUM PENTANYL Allergy Severe violence Uncoded 07/14/14 02:32 Home Medications Medication Instructions Recorded Confirmed Type atorvastatin 40 mg tablet 40 mg PO HS #0 tabs 07/14/14 07/09/24 History amlodipine 10 mg tablet 10 mg PO DAILY 07/09/24 07/09/24 History Patient History Surgical History (Updated 07/09/24 @ 15:16 by CAMILLE Dennis) H/O shoulder surgery Family History (Updated 07/09/24 @ 15:16 by CAMILLE Dennis) Other Cancer Social History Smoking Status: Former smoker Hx Alcohol Use: No Hx Substance Use: No Preferred Language: Czech Communication Ability: Effective Doll Dresser Required: No Beliefs That Will Affect Care: None Current Living Situation: Other Current Living Situation Comment: [facility] inmate Feels Safe at Home: Yes Review of Systems Review of Systems: All systems reviewed & are unremarkable except as noted in HPI & below Physical Exam Physical Exam: Constitutional: Patient appears to be of their stated age. Patient is in no apparent distress. Patient is well-developed. Eyes: Pupils are equal round and reactive to light. Conjunctivae are normal. Anicteric sclera. Ears nose, mouth and throat: Mallampati class 2. Normal posterior oropharynx. Uvula is midline. Neck: Trachea is midline. Visual inspection is normal. Respiratory: Bibasilar crackles. Mildly tachypneic. Increased work of breathing with movement. Cardiovascular: Regular rate and rhythm. No murmurs. No edema. Gastrointestinal: Normal bowel sounds, soft, nontender and nondistended. No hepatosplenomegaly noted. Musculoskeletal: No cyanosis. Patient is able to move all extremities. Strength is 5 out of 5 in the upper and lower extremities. Skin: No rashes, warm dry and intact. Neurologic: No obvious focal neurological deficits seen. Psychiatric: Alert and oriented x3 with a euthymic affect. Results & Data Results & Data Vital Signs (Past 12 Hours) Vital Signs Temp Pulse Pulse Resp BP Pulse Ox O2 Del Method 07/10/24 11:20 36.8 C 94 H 20 148/69 H 60 L Nasal Cannula 07/10/24 10:52 26 H 94 Nasal Cannula 07/10/24 09:05 20 94 Oxymask 07/10/24 08:16 36.5 C 67 22 137/70 91 Oxymask 07/10/24 08:00 56 L 07/10/24 08:00 Nasal Cannula 07/10/24 03:15 36.5 C 56 L 19 114/65 95 Nasal Cannula O2 Flow Rate 07/10/24 11:20 4 07/10/24 10:52 4 07/10/24 09:05 10 07/10/24 08:16 10 07/10/24 08:00 07/10/24 08:00 07/10/24 03:15 3 PG Care Time/CCT Total # of Minutes Spent Total Time Spent with Patient: Total time spent is greater than 50% in coordination of care (as documented) at patient's floor/unit and/or counseling patient: Coding Level of Care Code 51288 INT INP/OBS CARE 3/75MIN Diagnoses Idiopathic interstitial pneumonia J84.111 Pneumomediastinum J98.2 Thickening of esophagus K22.89
[2024-07-10] MEDS: AZITHROMYCIN 500 MG in DEXTROSE 5% 250 ML IV STA (14:26)
[2024-07-10] MEDS: ENOXAPARIN INJ 40 MG/0.4 ML SYR SQ SCH (17:27)
[2024-07-10] MEDS: PANTOprazole 40 MG in SYRINGE 0 ML IV SCH (20:01)
[2024-07-10] MEDS ORDERED: ATROPINE SULFATE 0.1 MG/ML 10ML SYR IV PRN (22:33)
[2024-07-10 22:52] LABS: Magnesium 2.4 mg/dl (1.7-2.4)
[2024-07-11 07:22] LABS: Hematocrit (blood only) 37.2 % (42.0-52.0); Hemoglobin 12.2 g/dl (14.0-18.0); Mean Corpuscular Hemoglobin 27.4 pg (25.0-34.0); Mean Corpuscular Hgb Conc 32.8 g/dL (32.0-36.0); Mean Corpuscular Volume 83.6 fL (80.0-100.0); Mean Platelet Volume 9.4 fL (9.4-12.4); Platelet Count 406 K/uL (130-400); RDW Coefficient of Variation 15.9 % (11.5-14.5); RDW Standard Deviation 43.1 fL (36.4-46.3); Red Blood Count 4.45 M/uL (4.70-6.10); White Blood Count 10.76 K/ul (4.8-10.8)
[2024-07-11 07:33] LABS: Albumin Level 2.7 gm/dl (3.4-5.0); BUN Creatinine Ratio 50.5 (10-20); Bilirubin Direct 0.5 mg/dl (0-0.2); Bilirubin,Total 1.4 mg/dl (0.2-1.0); Creatinine Clr Calc Pharmacy 71.2 ml/min; Est GFR (African American) 95.9 ml/min; Est GFR (Non-African American) 82.7 ml/min; Potassium 4.4 mmol/L (3.5-5.1); Total Protein 7.2 gm/dl (6.0-8.3)
--- NOTE | 2024-07-11 08:15 | XRay Report ---
XR chest 1V portable HISTORY: hypoxia COMPARISON: Chest 07/10/2024. FINDINGS: Low lung volumes. No pneumothorax. The patient's known pneumomediastinum is not well visual ized by this modality. There are low lung volumes with chronic fibrotic change again noted. This is s imilar to the prior study. Patchy bibasilar densities persist and are nonspecific. The heart remains mildly enlarged. IMPRESSION: 1. Chronic fibrotic changes again noted. Bibasilar densities persist and may correspond to the patien t's pulmonary fibrosis. A superimposed pneumonitis would be difficult to exclude. 2. The patient's known pneumomediastinum is better appreciated on the recent CT. ACT 112: Negative or not required by law. Electronically signed by: Duran Brandt M.D. 07/11/2024 8:14 AM
--- NOTE | 2024-07-11 09:48 | Gastrointestinal Consultation ---
Date of Consultation July 11, 2024 Assessment & Plan (1) Thickening of esophagus: 74 year old inmate with weight loss and thickened esophagus on CT scan as well as a pneumomediastinum on CT. Taken together this is worrisome for esophageal malignancy. EGD is contraindicated when there is question of a connection between esophagus and mediastinum for fear of making it worse or causing a mediastinal infection. After he recovers from his pneumonia I might consider a contrasted swallowing study to see if the esophageal mucosa is intact before EGD is done. Will follow for now. History of Present Illness Reason for Consultation: abnormal CT Attending Physician: Buster Medina DO History of Present Illness 74 year old inmate admitted with cough and pneumonia. On initial CT of the chest was found to have a pneumomediastinum and "thickened distal esophagus". Patient denies issues with dysphagia. He had heartburn in the past but has not had it in years. Thinks he had an EGD in the ' for "hiatal hernia check". Otherwise his gut has been good except for constipation. Not eating well "because he doesn't want to have to dig his poop out". Admits to 25-30 pound weight loss he thinks from not eating well. Allergies Allergy/AdvReac Type Severity Reaction Status Date / Time thiopental [From Pentothal] AdvReac Severe violence Verified 07/10/24 22:36 Home Medications Medication Instructions Recorded Confirmed Type atorvastatin 40 mg tablet 40 mg PO HS #0 tabs 07/14/14 07/09/24 History amlodipine 10 mg tablet 10 mg PO DAILY 07/09/24 07/09/24 History Patient History Surgical History H/O shoulder surgery Family History Other Cancer Social History Smoking Status: Former smoker Hx Alcohol Use: No Hx Substance Use: No Preferred Language: Nicaraguan Communication Ability: Effective Surgical Instrument Technician Required: No Beliefs That Will Affect Care: None Current Living Situation: Other Current Living Situation Comment: [facility] inmate Feels Safe at Home: Yes Review of Systems Review of Systems: All systems reviewed & are unremarkable except as noted in HPI & below Physical Exam Constitutional: WD/WN, vitals as above + disheveled; not in distress Neck: trachea midline, no thyromegaly Respiratory: normal respiratory effort, lungs clear to auscultation Cardiovascular: RRR, no murmur, no edema Gastrointestinal (Abdomen): normal bowel sounds, soft, nontender, no hepatosplenomegaly Results & Data Vital Signs (Past 12 Hours) Vital Signs Temp Pulse Pulse Resp BP BP Pulse Ox 07/11/24 08:00 07/11/24 07:41 07/11/24 07:20 36.6 C 58 L 20 120/73 92 07/11/24 03:11 36.5 C 48 L 18 134/81 98 07/11/24 00:00 07/10/24 23:22 36.5 C 50 L 18 132/66 95 07/10/24 22:36 57 L 07/10/24 22:03 Pulse Ox O2 Del Method O2 Del Method O2 Flow Rate O2 Flow Rate 07/11/24 08:00 89 L Oxymask 15 07/11/24 07:41 Oxymask 15 07/11/24 07:20 Oxymask 5 07/11/24 03:11 Oxymask 5 07/11/24 00:00 94 Oxymask 5 07/10/24 23:22 Oxymask 07/10/24 22:36 07/10/24 22:03 Oxymask 5 Laboratory Results 07/11/24 07/10/24 Range/Units 06:23 08:35 WBC 10.76 (4.8-10.8) K/ul RBC 4.45 L (4.70-6.10) M/uL Hgb 12.2 L (14.0-18.0) g/dl Hct 37.2 L (42.0-52.0) % MCV 83.6 (80.0-100.0) fL MCH 27.4 (25.0-34.0) pg MCHC 32.8 (32.0-36.0) g/dL RDW Std Deviation 43.1 (36.4-46.3) fL RDW Coeff of Allen 15.9 H (11.5-14.5) % Plt Count 406 H (130-400) K/uL MPV 9.4 (9.4-12.4) fL Sodium 136 (136-145) mmol/L Potassium 4.4 (3.5-5.1) mmol/L Chloride 104 (98-107) mmol/L Carbon Dioxide 26 (21-32) mmol/L Anion Gap 6 (3-11) BUN 46 H (6-23) mg/dl Creatinine 0.91 (0.6-1.4) mg/dl Est Cr Clr Drug Dosing 71.2 ml/min Est GFR ( Amer) 95.9 ml/min Est GFR (Non-Af Amer) 82.7 ml/min BUN/Creatinine Ratio 50.5 H (10-20) Glucose 114 H (70-99(Fasting)) mg/dl Calcium 9.0 (8.6-10.3) mg/dl Magnesium 2.4 (1.7-2.4) mg/dl Total Bilirubin 1.4 H (0.2-1.0) mg/dl Direct Bilirubin 0.5 H (0-0.2) mg/dl AST 77 H (13-39) U/L ALT 100 H (7-52) U/L Alkaline Phosphatase 157 H (34-104) U/L Troponin I High Sens 28.5 H D (0-20) pg/ml Total Protein 7.2 (6.0-8.3) gm/dl Albumin 2.7 L (3.4-5.0) gm/dl TSH 1.007 (0.300-4.500) uIu/ml Diagnostic Findings Chest CTA 07/09/24 10:39 CHEST CTA for PULMONARY ARTERIES CT DOSE: 682.66 mGy.cm HISTORY: Dyspnea TECHNIQUE: Multiaxial CT images of the chest were performed following the intravenous administration of contrast to evaluate the pulmonary arteries. 3D/Maximal intensity projection images were also obtained. Sagittal and coronal reformations were also reviewed. A dose lowering technique was utilized adhering to the principles of ALARA. COMPARISON STUDY: None. FINDINGS: There are multiple old mild chronic compression deformity is within the mid to lower thoracic spine. No acute fractures identified. Postoperative changes within the left humeral head. Limited views of the upper abdomen demonstrate a normal spleen and right adrenal gland. The left adrenal gland is not included on this study. There are few punctate calcified granulomas within the spleen. Normal thyroid gland. [id number] circumferential thickening throughout the esophagus with a tiny hiatus hernia. No mediastinal or hilar lymphadenopathy. The heart is mildly enlarged. No pleural or pericardial effusions. Mild calcified plaque within the normal caliber thoracic aorta. No evidence for an aortic dissection. Mild coronary artery calcifications are noted. No filling defects within the pulmonary arteries to suggest a pulmonary embolus. No pneumothorax. Pneumomediastinum is noted. The central airways are patent. The etiology of the pneumomediastinum is not clearly identified on this study. There are low lung volumes with peripheral and basilar predominant interstitial thickening and scattered airspace opacities. The majority these airspace opacities demonstrate a groundglass appearance. There is mild bronchiectasis. There is a 6 mm left lower lobe nodule on image 56. IMPRESSION: 1. No evidence for a pulmonary embolus. 2. Pneumomediastinum without clear etiology on this study. 3. [id number]-[id number] circumferential thickening throughout the esophagus. 4. Peripheral interstitial thickening and patchy airspace opacities which favors pulmonary fibrosis. A superimposed viral/atypical pneumonitis also remains in the differential diagnosis. 5. A 6 mm nodule within the left lower lobe. Follow-up recommended as described above. 6. Additional findings as described above. Please refer to below summary of Fleischner criteria recommendations for follow- up of incidental CT nodules (Latrell Emanuel, Guidelines for management of small pulmonary nodules detected on CT scans: A statement from the Fleischner Society, Radiology 237: [phone].) SOLID NODULES Solitary nodule size: <6 mm * Low risk patients: no follow-up needed * high risk patients: optional CT at 12 months Solitary nodule size: 6-8 mm * Low risk patients: follow-up at 6-12 months, then consider further follow-up at 18-24 months * high risk patients: initial follow-up CT at 6-12 months and then at 18-24 months if no change Solitary nodule size: >8 mm * either low or high risk patients - consider follow-up CT at 3 months, and/or CT-PET, and/or biopsy Multiple nodules size: <6 mm * Low risk patients: no routine follow-up * high risk patients: optional CT at 12 months Multiple nodules size: 6-8 mm * Low risk patients: follow-up at 3-6 months, then consider further follow-up at 18-24 months * high risk patients: follow-up at 3-6 months, then at 18-24 months if no change Multiple nodules size: >8 mm * Low risk patients: follow-up at 3-6 months, then consider further follow-up at 18-24 months * high risk patients: follow-up at 3-6 months, then at 18-24 months if no change Note: newly detected indeterminate nodule in persons 35 years of age or older. * Low risk patients: minimal or absent history of smoking and/or other known risk factors * high risk patients: history of smoking or of other known risk factors (e.g. first degree relative with lung cancer, or exposure to asbestos, radon, uranium) * if a nodule up to 8 mm is partly solid or is ground glass further follow-up is required after 24 months to exclude possible slow growing adenocarcinoma (ARCHIE) SUBSOLID NODULES Solitary pure ground-glass nodule * nodule size <6 mm - no CT follow-up required * nodule size >=6 mm - follow-up CT at 6-12 months, then every 2 years until 5 years Solitary part-solid nodule * nodule size <6 mm - no CT follow-up required * nodule size >=6 mm - follow-up CT at 3-6 months. If unchanged, and solid component remains <6 mm, then annual follow-up for 5 years Multiple subsolid nodules * nodule size <6 mm - follow-up CT at 3-6 months, consider further follow-up at 2 and 4 years if stable * nodule size >=6 mm - follow-up CT at 3-6 months, subsequent management based on the most suspicious nodule(s) ACT 112: Positive. There are findings on this exam that require communication between the performing entity and the patient following Patient Test Result Information Act ([place] Act 112) guidelines. Electronically signed by: Duran Brandt M.D. 07/09/2024 11:54 AM Chest X-Ray 07/09/24 10:39 SINGLE VIEW CHEST CLINICAL HISTORY: Dyspnea FINDINGS: An AP, portable, upright chest radiograph is compared to study dated 07/14/2014. The examination is degraded by portable technique and apical lordotic positioning. The heart is enlarged. The pulmonary vasculature is not congested. There is diffuse interstitial thickening and subpleural reticulation. More focal airspace opacities are seen in the mid to lower lungs bilaterally, greater on the right. No large pleural effusion or pneumothorax is seen. The skeletal structures are osteopenic. The bony thorax is grossly intact. Postsurgical change is seen in the left proximal humerus. IMPRESSION: 1. Cardiomegaly without radiographic evidence of congestive failure. 2. Findings suggest chronic interstitial/fibrotic lung disease. This is new from 2013. 3. There are more focal airspace opacities in the mid to lower lungs bilaterally. A superimposed pneumonia is not excluded. Clinical correlation will be required and radiographic follow-up is recommended ACT 112: Negative or not required by law. Electronically signed by: Scout Felton M.D. 07/09/2024 11:08 AM Liver Ultrasound 07/09/24 14:59 ULTRASOUND RIGHT UPPER QUADRANT ABDOMEN CLINICAL HISTORY: Elevated hepatic transaminases. COMPARISON STUDY: No priors. TECHNIQUE: Real-time, grayscale, and color flow sonography of the right upper quadrant of the abdomen was performed. Images are reviewed in the transverse and longitudinal planes. FINDINGS: Liver: The liver is normal in size and heterogeneous in echotexture. There is no intrahepatic biliary ductal dilatation. The main portal vein is patent. A 1.3 cm cyst is noted in the right lobe. An indeterminant 7.1 cm cystic focus is seen between the right lobe of the liver and the right kidney. Gallbladder: The gallbladder is filled with stones and sludge. There is no gallbladder wall thickening or pericholecystic fluid. A sonographic Duggan's sign is reportedly absent. The common bile duct measures up to 0.4 cm in diameter. Pancreas: Visualized portions of the pancreatic head and body are normal in appearance. The splenic vein is patent. Right kidney: Survey images of the right kidney demonstrate normal size and echotexture. There is no hydronephrosis. Ascites: None. IMPRESSION: 1. Gallstones and biliary sludge with no sonographic evidence of acute cholecystitis. 2. Hepatic echotexture is heterogeneous. 3. An indeterminant 7.1 cm cystic focus is seen between the liver and the right kidney. This is not highly suspicious. If warranted this could be further assessed with an abdominal CT scan. ACT 112: Negative or not required by law. Electronically signed by: Scout Felton M.D. 07/09/2024 4:49 PM Chest X-Ray 07/10/24 08:12 INSPIRATORY/EXPIRATORY CHEST X-RAYS CLINICAL HISTORY: Hypoxia. FINDINGS: AP, portable, upright chest radiographs are performed in inspiration and expiration. Comparison is made to chest x-ray and chest CT dated 07/09/2024. The heart is enlarged. There is prominence of the pulmonary vasculature. Again seen is diffuse interstitial thickening and subpleural reticulation. More focal airspace opacities are seen in the mid to lower lungs bilaterally. No large pleural effusion or pneumothorax is identified. Pneumomediastinum seen by CT is not apparent on x-ray. The skeletal structures are osteopenic. The bony thorax is grossly intact. Postsurgical change is seen in the left proximal humerus. IMPRESSION: 1. Cardiomegaly with prominence of the pulmonary vasculature. Clinically clinically for evidence of fluid overload/congestive change. 2. Findings of chronic interstitial/fibrotic lung disease are again suggested. Superimposed airspace opacities at the lung bases are similar to yesterday and a superimposed infectious/inflammatory pneumonitis is not excluded. 3. Pneumomediastinum seen by CT is not apparent on x-ray. ACT 112: Negative or not required by law. Electronically signed by: Scout Felton M.D. 07/10/2024 9:09 AM Chest X-Ray 07/11/24 07:53 XR chest 1V portable HISTORY: hypoxia COMPARISON: Chest 07/10/2024. FINDINGS: Low lung volumes. No pneumothorax. The patient's known pneumomediastinum is not well visualized by this modality. There are low lung volumes with chronic fibrotic change again noted. This is similar to the prior study. Patchy bibasilar densities persist and are nonspecific. The heart remains mildly enlarged. IMPRESSION: 1. Chronic fibrotic changes again noted. Bibasilar densities persist and may correspond to the patient's pulmonary fibrosis. A superimposed pneumonitis would be difficult to exclude. 2. The patient's known pneumomediastinum is better appreciated on the recent CT. ACT 112: Negative or not required by law. Electronically signed by: Duran Brandt M.D. 07/11/2024 8:14 AM
--- NOTE | 2024-07-11 10:48 | Pulmonology Progress Note ---
Date of Service July 11, 2024 Assessment & Plan (1) Idiopathic interstitial pneumonia: Plan: Patient with evidence of idiopathic interstitial pneumonia which is likely chronic. Suspect undifferentiated diffuse parenchymal lung disease. Etiologies are broad including chronic eosinophilic pneumonia given the subpleural groundglass opacities versus NSIP versus chronic aspiration and an atypical pattern of UIP/IPF. Other possibilities include chronic atypical infection such as nontuberculous Mycobacterium and widespread pulmonary malignancy. Would benefit from outpatient PFTs and and outpatient rheumatologic workup. Empiric steroids reasonable at this time. Continue azithromycin for possible superimposed atypical bacterial infection. Respiratory viral panel was negative on admission. As needed diuresis per hospitalist service. Follow-up HRCT as an outpatient also indicated in the next 4 to 6 weeks. Discussed with hospitalist. (2) Pneumomediastinum: Plan: Patient with spontaneous pneumomediastinum likely secondary to cough. Agree with codeine as needed to suppress cough is much as possible. Other etiologies include microperforation related to esophageal wall thickening noted on CT chest. (3) Thickening of esophagus: Plan: Patient endorses a 30 pound weight loss with decreased appetite. Highly paula picious for possible malignancy. Will start the patient on Protonix 40 mg twice daily. GI consult noted. Plan Thank you for the consult. Will follow with you. Please call with questions. Admission and Anticipated Discharge Date Admission Date: July 09, 2024 Subjective Patient with significant desaturations with the eating and ambulation. Otherwise remained stable compared to yesterday. Review of Systems Review of Systems: All systems reviewed & are unremarkable except as noted in HPI & below Physical Exam Physical Exam: Constitutional: Patient appears to be of their stated age. Patient is in no apparent distress. Patient is well-developed. Eyes: Pupils are equal round and reactive to light. Conjunctivae are normal. Anicteric sclera. Ears nose, mouth and throat: Mallampati class 2. Normal posterior oropharynx. Uvula is midline. Neck: Trachea is midline. Visual inspection is normal. Respiratory: Bibasilar crackles. Mildly tachypneic. Increased work of breathing with movement. Cardiovascular: Regular rate and rhythm. No murmurs. No edema. Gastrointestinal: Normal bowel sounds, soft, nontender and nondistended. No hepatosplenomegaly noted. Musculoskeletal: No cyanosis. Patient is able to move all extremities. Strength is 5 out of 5 in the upper and lower extremities. Skin: No rashes, warm dry and intact. Neurologic: No obvious focal neurological deficits seen. Psychiatric: Alert and oriented x3 with a euthymic affect. Results & Data Results & Data Vital Signs (Past 12 Hours) Vital Signs Temp Pulse Resp BP BP Pulse Ox Pulse Ox 07/11/24 10:24 36.6 C 60 14 144/81 H 90 07/11/24 08:00 89 L 07/11/24 07:41 07/11/24 07:20 36.6 C 58 L 20 120/73 92 07/11/24 03:11 36.5 C 48 L 18 134/81 98 07/11/24 00:00 94 07/10/24 23:22 36.5 C 50 L 18 132/66 95 O2 Del Method O2 Del Method O2 Flow Rate O2 Flow Rate 07/11/24 10:24 Oxymask 5 07/11/24 08:00 Oxymask 15 07/11/24 07:41 Oxymask 15 07/11/24 07:20 Oxymask 5 07/11/24 03:11 Oxymask 5 07/11/24 00:00 Oxymask 5 07/10/24 23:22 Oxymask PG Care Time/CCT Total # of Minutes Spent Total Time Spent with Patient: Total time spent is greater than 50% in coordination of care (as documented) at patient's floor/unit and/or counseling patient: Coding Level of Care Code 40854 SUB INP/OBS CARE 3/50MIN Diagnoses Idiopathic interstitial pneumonia J84.111 Pneumomediastinum J98.2 Thickening of esophagus K22.89
--- NOTE | 2024-07-11 12:33 | Hospitalist Progress Note ---
Date of Service July 11, 2024 Assessment & Plan (1) Acute hypoxic respiratory failure: (2) Idiopathic interstitial pneumonia: (3) Esophageal abnormality: (4) Diffuse interstitial pulmonary fibrosis: (5) Pneumomediastinum: (6) Transaminitis: (7) Cholelithiasis: (8) HTN (hypertension): Plan Patient remains critically ill with severe hypoxia requiring higher flow of oxygen. Requires hospital level care, specialty evaluation and hospital level support Continue IV steroids Continue empiric Zithromax Communication with pulmonary team, continue current steroids and oxygen support, avoid positive pressure ventilation if at all possible Communication with GI team, patient will eventually need further evaluation of esophagus and liver abnormalities when respiratory status improves Continue antitussives Continue PPI Continue telemetry monitoring if bradycardia, avoid chronotropic medications 54 minutes spent on bedside evaluation, interpretation of diagnostics, communication with specialists and care team Admission and Anticipated Discharge Date Admission Date: July 09, 2024 Subjective Patient acutely hypoxic this morning as he came off for breakfast. [place] a little dizzy as he was hypoxic, this is improved. Denies feeling any more short of breath Physical Exam Physical Exam: Constitutional: Alert, moderate distress HEENT: Mucous membranes moist. Lungs: Decreased breath sounds, poor airflow, coarse breath sounds CV: S1-S2, regular, bradycardic Abdomen: Soft, nontender, nondistended Extremities: No significant edema Neuro: No focal deficits Psych: Cooperative, normal mood Results & Data Results & Data Vital Signs (Past 12 Hours) Vital Signs Temp Pulse Pulse Resp BP BP Pulse Ox 07/11/24 11:06 50 L 07/11/24 10:24 36.6 C 60 14 144/81 H 90 07/11/24 08:00 07/11/24 07:41 07/11/24 07:20 36.6 C 58 L 20 120/73 92 07/11/24 03:11 36.5 C 48 L 18 134/81 98 Pulse Ox O2 Del Method O2 Del Method O2 Flow Rate O2 Flow Rate 07/11/24 11:06 07/11/24 10:24 Oxymask 5 07/11/24 08:00 89 L Oxymask 15 07/11/24 07:41 Oxymask 15 07/11/24 07:20 Oxymask 5 07/11/24 03:11 Oxymask 5 Diagnostic Findings Reviewed imaging, laboratory and diagnostic studies. Pertinent findings as below. WBCs 10.7 Hemoglobin 12.2 LFTs stable
[2024-07-11] MEDS: FUROSEMIDE INJ 20 MG/2 ML VIAL IV ONE (13:11)
[2024-07-11] MEDS: AZITHROMYCIN 250 MG in DEXTROSE 5% 250 ML IV SCH (14:29)
[2024-07-12 08:34] LABS: BUN Creatinine Ratio 44.7 (10-20); Calcium 9.1 mg/dl (8.6-10.3); Creatinine Clr Calc Pharmacy 68.9 ml/min; Est GFR (African American) 92.2 ml/min; Est GFR (Non-African American) 79.6 ml/min; Potassium 4.6 mmol/L (3.5-5.1)
--- NOTE | 2024-07-12 11:21 | Pulmonology Progress Note ---
Date of Service July 12, 2024 Assessment & Plan (1) Idiopathic interstitial pneumonia: Plan: Patient with evidence of idiopathic interstitial pneumonia which is likely chronic. Suspect undifferentiated diffuse parenchymal lung disease. Etiologies are broad including chronic eosinophilic pneumonia given the subpleural groundglass opacities versus NSIP versus chronic aspiration and an atypical pattern of UIP/IPF. Other possibilities include chronic atypical infection such as nontuberculous Mycobacterium and widespread pulmonary malignancy. Would benefit from outpatient PFTs and and outpatient rheumatologic workup. Empiric steroids reasonable at this time. Continue azithromycin for possible superimposed atypical bacterial infection. Respiratory viral panel was negative on admission. Tolerating diuresis well. Agree with keeping the patient on the ore storage drier side. Follow-up HRCT as an outpatient also indicated in the next 4 to 6 weeks. (2) Pneumomediastinum: Plan: Patient with spontaneous pneumomediastinum likely secondary to cough. Agree with codeine as needed to suppress cough is much as possible. Other etiologies include microperforation related to esophageal wall thickening noted on CT chest. (3) Thickening of esophagus: Plan: Patient endorses a 30 pound weight loss with decreased appetite. Highly suspicious for possible malignancy. Will start the patient on Protonix 40 mg twice daily. GI consult noted. Plan Thank you for the consult. Will follow with you. Please call with questions. Admission and Anticipated Discharge Date Admission Date: July 09, 2024 Subjective Patient seen and evaluated bedside. He states that he is still somewhat dyspneic with changes in position. He states that the Ann catheter has helped since he does not have to move is much to void. He offers no new complaints. Review of Systems Review of Systems: As per subjective. Physical Exam Physical Exam: VITAL SIGNS Vital signs and nursing notes were reviewed. GENERAL 74-year-old male appearing his stated age who is in no acute distress. Communicates well with provider and answers questions appropriately. LUNGS Chest wall evaluation demonstrates normal chest wall A:P diameter. Auscultation reveals diffuse crackles extending up both lung souza bilaterally. CARDIAC RRR with S1/S2. No murmur, rubs, or gallops appreciated. EXTREMITIES Nail clubbing not present. No peripheral cyanosis. No pretibial edema present. +3/5 radial palpated throughout. PSYCH A&Ox3 and cooperates fully with examiner. Pt is very pleasant and interacts well with examiner. Results & Data Results & Data Vital Signs (Past 12 Hours) Vital Signs Temp Pulse Pulse Resp BP Pulse Ox O2 Del Method 07/12/24 10:54 36.6 C 79 20 144/94 H 97 Nasal Cannula 07/12/24 09:00 High Flow Nasal Cannula 07/12/24 08:00 49 L 07/12/24 08:00 36.7 C 77 20 145/72 H 96 Nasal Cannula 07/12/24 02:45 36.6 C 60 18 157/79 H 95 Nasal Cannula O2 Flow Rate 07/12/24 10:54 07/12/24 09:00 07/12/24 08:00 07/12/24 08:00 5 07/12/24 02:45 PG Care Time/CCT Total # of Minutes Spent Total Time Spent with Patient: Total time spent is greater than 50% in coordination of care (as documented) at patient's floor/unit and/or counseling patient: Coding Level of Care Code 86318 SUB INP/OBS CARE 12/11MIN Diagnoses Idiopathic interstitial pneumonia J84.111 Pneumomediastinum J98.2 Thickening of esophagus K22.89
--- NOTE | 2024-07-12 12:01 | Gastroenterology Progress Note ---
Date of Service July 12, 2024 Assessment & Plan (1) Esophageal abnormality: Plan: When pulmonary thinks he has received enough antibiotics and has recovered from his pneumonia issues then I would first get a barium study of his esophagus (or gastrograffin per radiology's preference) to assess for any possible leak from esophagus. If no leak then we can plan EGD after that depending on what is seen on contrasted UGI study Admission and Anticipated Discharge Date Admission Date: July 09, 2024 Subjective On treatment for pulmonary issues. Never really had GI symptoms other than weight loss Physical Exam Constitutional: WD/WN, vitals as above Results & Data Vital Signs (Past 12 Hours) Vital Signs Temp Pulse Pulse Resp BP Pulse Ox O2 Del Method 07/12/24 10:54 36.6 C 79 20 144/94 H 97 Nasal Cannula 07/12/24 09:00 High Flow Nasal Cannula 07/12/24 08:00 49 L 07/12/24 08:00 36.7 C 77 20 145/72 H 96 Nasal Cannula 07/12/24 02:45 36.6 C 60 18 157/79 H 95 Nasal Cannula O2 Flow Rate 07/12/24 10:54 07/12/24 09:00 07/12/24 08:00 07/12/24 08:00 5 07/12/24 02:45
--- NOTE | 2024-07-12 15:14 | Hospitalist Progress Note ---
Date of Service July 12, 2024 Assessment & Plan (1) Acute hypoxic respiratory failure: (2) Idiopathic interstitial pneumonia: (3) Esophageal abnormality: (4) Diffuse interstitial pulmonary fibrosis: (5) Pneumomediastinum: (6) Transaminitis: (7) Cholelithiasis: (8) HTN (hypertension): Plan Reviewed pulmonary and GI recommendations Patient unable to tolerate barium swallow, could not stand and imaging machine Continue steroids Continue to titrate oxygen as able Surveillance laboratories in the morning Admission and Anticipated Discharge Date Admission Date: July 09, 2024 Subjective Patient states is breathing essentially unchanged. Still on a fairly high flow of oxygen. Physical Exam Physical Exam: Constitutional: Alert, mildly ill in appearance nontoxic HEENT: Mucous membranes moist. Lungs: Decreased breath sounds, however airflow seems to be improved when compared to previous, less coarse rhonchi and crackles CV: S1-S2, regular Abdomen: Soft, nontender, nondistended Extremities: No significant edema Neuro: No focal deficits Psych: Cooperative, normal mood Results & Data Results & Data Vital Signs (Past 12 Hours) Vital Signs Temp Pulse Pulse Resp BP Pulse Ox O2 Del Method 07/12/24 10:54 36.6 C 79 20 144/94 H 97 Nasal Cannula 07/12/24 09:00 High Flow Nasal Cannula 07/12/24 08:00 49 L 07/12/24 08:00 36.7 C 77 20 145/72 H 96 Nasal Cannula O2 Flow Rate 07/12/24 10:54 07/12/24 09:00 07/12/24 08:00 07/12/24 08:00 5 Diagnostic Findings Reviewed imaging, laboratory and diagnostic studies. Pertinent findings as below. Sodium 134 Creatinine 0.94 Glucose 105
[2024-07-13 06:52] LABS: Hematocrit (blood only) 38.6 % (42.0-52.0); Hemoglobin 12.7 g/dl (14.0-18.0); Mean Corpuscular Hemoglobin 26.7 pg (25.0-34.0); Mean Corpuscular Hgb Conc 32.9 g/dL (32.0-36.0); Mean Corpuscular Volume 81.1 fL (80.0-100.0); Mean Platelet Volume 9.6 fL (9.4-12.4); Platelet Count 408 K/uL (130-400); RDW Coefficient of Variation 14.6 % (11.5-14.5); RDW Standard Deviation 40.9 fL (36.4-46.3); Red Blood Count 4.76 M/uL (4.70-6.10); White Blood Count 11.87 K/ul (4.8-10.8)
[2024-07-13 07:20] LABS: Albumin Level 2.8 gm/dl (3.4-5.0); Bilirubin Direct 0.5 mg/dl (0-0.2); Bilirubin,Total 1.5 mg/dl (0.2-1.0); Creatinine Clr Calc Pharmacy 77.2 ml/min; Est GFR (Non-African American) 86.3 ml/min; Potassium 4.5 mmol/L (3.5-5.1); Total Protein 7.4 gm/dl (6.0-8.3)
--- NOTE | 2024-07-13 10:50 | Pulmonology Progress Note ---
Date of Service July 13, 2024 Assessment & Plan (1) Idiopathic interstitial pneumonia: Plan: Patient with evidence of idiopathic interstitial pneumonia which is likely chronic. Suspect undifferentiated diffuse parenchymal lung disease. Etiologies are broad including chronic eosinophilic pneumonia given the subpleural groundglass opacities versus NSIP versus chronic aspiration and an atypical pattern of UIP/IPF. Other possibilities include chronic atypical infection such as nontuberculous Mycobacterium and widespread pulmonary malignancy. Would benefit from outpatient PFTs and and outpatient rheumatologic workup. Empiric steroids reasonable at this time. Continue azithromycin for possible superimposed atypical bacterial infection. Respiratory viral panel was negative on admission. Patient would benefit from aggressive pulmonary toileting. Will add incentive spirometry. Patient can be out of bed to chair with assistance as well. Titrate down supplemental oxygen as tolerated. Follow-up HRCT as an outpatient also indicated in the next 4 to 6 weeks. (2) Pneumomediastinum: Plan: Patient with spontaneous pneumomediastinum likely secondary to cough. Agree with codeine as needed to suppress cough is much as possible. Other etiologies include microperforation related to esophageal wall thickening noted on CT chest. (3) Thickening of esophagus: Plan: Patient endorses a 30 pound weight loss with decreased appetite. Highly suspicious for possible malignancy. Will start the patient on Protonix 40 mg twice daily. GI consult noted. Plan Thank you for the consult. Will follow with you. Please call with questions. Admission and Anticipated Discharge Date Admission Date: July 09, 2024 Subjective Patient seen and evaluated bedside. He states that he is still having dyspnea with any mild exertion. He offers no complaints of chest pain, hemoptysis, or other concerns. He has mainly been in bed without any movement recently. Currently saturating well on 6 L nasal cannula. Review of Systems Review of Systems: As per subjective. Physical Exam Physical Exam: VITAL SIGNS Vital signs and nursing notes were reviewed. GENERAL 74-year-old male appearing his stated age who is in no acute distress. Communicates well with provider and answers questions appropriately. LUNGS Chest wall evaluation demonstrates normal chest wall A:P diameter. Auscultation reveals diffuse crackles extending up both lung souza bilaterally. CARDIAC RRR with S1/S2. No murmur, rubs, or gallops appreciated. EXTREMITIES Nail clubbing not present. No peripheral cyanosis. No pretibial edema present. +3/5 radial palpated throughout. PSYCH A&Ox3 and cooperates fully with examiner. Pt is very pleasant and interacts well with examiner. Results & Data Results & Data Vital Signs (Past 12 Hours) Vital Signs Temp Pulse Pulse Resp BP Pulse Ox O2 Del Method 07/13/24 10:22 53 L 07/13/24 08:01 High Flow Nasal Cannula 07/13/24 07:59 36.7 C 60 158/88 H 93 Nasal Cannula 07/13/24 03:30 36.6 C 51 L 18 161/81 H 91 Nasal Cannula 07/12/24 22:49 36.5 C 52 L 18 142/80 H 96 Nasal Cannula O2 Flow Rate 07/13/24 10:22 07/13/24 08:01 8 07/13/24 07:59 9 07/13/24 03:30 9 07/12/24 22:49 9 PG Care Time/CCT Total # of Minutes Spent Total Time Spent with Patient: Total time spent is greater than 50% in coordination of care (as documented) at patient's floor/unit and/or counseling patient: Coding Level of Care Code 63698 SUB INP/OBS CARE 12/11MIN Diagnoses Idiopathic interstitial pneumonia J84.111 Pneumomediastinum J98.2 Thickening of esophagus K22.89
--- NOTE | 2024-07-13 11:58 | Hospitalist Progress Note ---
Date of Service July 13, 2024 Assessment & Plan (1) Acute hypoxic respiratory failure: (2) Idiopathic interstitial pneumonia: (3) Esophageal abnormality: (4) Diffuse interstitial pulmonary fibrosis: (5) Pneumomediastinum: (6) Transaminitis: (7) Cholelithiasis: (8) HTN (hypertension): Plan Patient with acute hypoxic respiratory failure due to idiopathic interstitial pneumonitis with evidence of pneumomediastinum on CT at the time of admission. Unclear etiology of pneumomediastinum and consider possible small bleb rupture versus possible air from esophagus with evidence of esophageal thickening on CT. Communication with GI and pulmonary team today. Continue oxygen support, continue steroids. GI and pulmonary to coordinate potential EGD and bronchoscopy when patient's respiratory status slightly more stable and improved. Anticipate patient may need intubation and mechanical ventilation with these procedures. Continue steroids Continue to titrate oxygen as able Continue antitussives Care management to coordinate return to correction or alternate level of care when GI and pulmonary procedures completed and patient improved 51 minutes, coordinating care, review of records, care at the bedside Admission and Anticipated Discharge Date Admission Date: July 09, 2024 Subjective Patient states he was able to get some rest, however does get some dyspnea with any type of exertion Physical Exam Physical Exam: Constitutional: Alert, nontoxic in appearance HEENT: Mucous membranes moist. Lungs: Decreased breath sounds, no wheezes, few rhonchi, no respiratory distress CV: S1-S2, regular Abdomen: Soft, nontender, nondistended Extremities: No significant edema Neuro: No focal deficits Psych: Cooperative, normal mood Results & Data Results & Data Vital Signs (Past 12 Hours) Vital Signs Temp Pulse Pulse Resp BP Pulse Ox O2 Del Method 07/13/24 11:00 36.6 C 66 149/78 H 94 Nasal Cannula 07/13/24 10:22 53 L 07/13/24 08:01 High Flow Nasal Cannula 07/13/24 07:59 36.7 C 60 158/88 H 93 Nasal Cannula 07/13/24 03:30 36.6 C 51 L 18 161/81 H 91 Nasal Cannula O2 Flow Rate 07/13/24 11:00 9 07/13/24 10:22 07/13/24 08:01 8 07/13/24 07:59 9 07/13/24 03:30 9 Diagnostic Findings Reviewed imaging, laboratory and diagnostic studies. Pertinent findings as below. CBC and BMP stable LFTs stable
--- NOTE | 2024-07-13 15:41 | Communication Note ---
Date of Service: July 13, 2024 Discussed via tiger text with primary team and pulmonary. Will consider EGD same day as bronchoscopy but all involved need to realize if he has esophageal CA with connection to mediastinum then EGD could make things worse. Will follow and arrange EGD when he is felt to be stable enough for both procedures.
[2024-07-13] MEDS ORDERED: ACETAMINOPHEN 500 MG TAB PO PRN (20:48)
[2024-07-13] MEDS: oxyCODONE HCL IR 5 MG TAB (IMMEDIATE RELEASE) PO PRN (21:50)
[2024-07-14] MEDS: ALBUT/IPRATROP 3MG/0.5MG NEB 3 ML VIAL NEB STA (05:18)
[2024-07-14] MEDS: MoRPHine SULFATE 2 MG/ML CARP IV PRN (05:45)
[2024-07-14] MEDS: oxyCODONE HCL IR 5 MG TAB (IMMEDIATE RELEASE) PO PRN (09:13)
--- NOTE | 2024-07-14 09:48 | XRay Report ---
XR chest 1V portable CLINICAL HISTORY: shortness of breath COMPARISON STUDY: Chest CT July 09, 2024. Chest radiograph July 11, 2024. FINDINGS: There is no pneumothorax or pleural effusion. Cardiomediastinal silhouette is stable. Inter stitial thickening with lower lung opacities is unchanged in appearance. Pneumomediastinum shown on c hest CT of July 09, 2024 is not well depicted by radiography. IMPRESSION: 1. Interstitial thickening suggestive of chronic fibrotic change. 2. No change in lower lung opacities which may related to interstitial lung disease. Superimposed pne umonia could appear similar. ACT 112: Negative or not required by law. Electronically signed by: Fabain Medrano M.D. 07/14/2024 9:47 AM
--- NOTE | 2024-07-14 10:05 | Pulmonology Progress Note ---
Date of Service July 14, 2024 Assessment & Plan (1) Idiopathic interstitial pneumonia: Plan: Patient with evidence of idiopathic interstitial pneumonia which is likely chronic. Suspect undifferentiated diffuse parenchymal lung disease. Etiologies are broad including chronic eosinophilic pneumonia given the subpleural groundglass opacities versus NSIP versus chronic aspiration and an atypical pattern of UIP/IPF. Other possibilities include chronic atypical infection such as nontuberculous Mycobacterium and widespread pulmonary malignancy. Would benefit from outpatient PFTs and and outpatient rheumatologic workup. Empiric steroids reasonable at this time. Continue azithromycin for possible superimposed atypical bacterial infection. Respiratory viral panel was negative on admission. Chest x-ray reviewed today with persistence and interstitial changes. Will give him a one-time dose of Lasix today as he is still 4 L positive during hospitalization. Would rather the patient on the port drier side. Will see if this makes a difference in oxygen requirement as well. Patient would benefit from aggressive pulmonary toileting. Will add incentive spirometry. Patient can be out of bed to chair with assistance as well. Titrate down supplemental oxygen as tolerated. Serologic panel ordered, however will take several days for return. Certainly, tissue sampling/biopsy of the lung tissue would be helpful to delineate cause of underlying interstitial lung process. Unfortunately, the patient remains with a high oxygen requirement at this point making bronchoscopic evaluation risky for need for intubation with possible little chance of liberation from ventilator. If he makes some progression over the next few days, this certainly could be considered. Will review this option with the patient and forward, but I am concerned by his general state of frailty aggressive intervention may be catastrophic for the patient. Follow-up HRCT as an outpatient also indicated in the next 4 to 6 weeks. (2) Pneumomediastinum: Plan: Patient with spontaneous pneumomediastinum likely secondary to cough. Agree with codeine as needed to suppress cough is much as possible. Other etiologies include microperforation related to esophageal wall thickening noted on CT chest. (3) Thickening of esophagus: Plan: Patient endorses a 30 pound weight loss with decreased appetite. Highly suspicious for possible malignancy. Protonix 40 mg twice daily. GI consult noted. Plan Thank you for the consult. Will follow with you. Please call with questions. Admission and Anticipated Discharge Date Admission Date: July 09, 2024 Subjective Patient seen and evaluated bedside. He remains weak and dyspneic with any exertion. Review of Systems Review of Systems: As per subjective. Physical Exam Physical Exam: VITAL SIGNS Vital signs and nursing notes were reviewed. GENERAL 74-year-old male appearing his stated age who is in no acute distress. Communicates well with provider and answers questions appropriately. LUNGS Chest wall evaluation demonstrates normal chest wall A:P diameter. Auscultation reveals diffuse crackles extending up both lung souza bilaterally. CARDIAC RRR with S1/S2. No murmur, rubs, or gallops appreciated. EXTREMITIES Nail clubbing not present. No peripheral cyanosis. No pretibial edema present. +3/5 radial palpated throughout. PSYCH A&Ox3 and cooperates fully with examiner. Pt is very pleasant and interacts well with examiner. Results & Data Results & Data Vital Signs (Past 12 Hours) Vital Signs Temp Pulse Resp BP Pulse Ox O2 Del Method O2 Flow Rate 07/14/24 07:09 36.6 C 70 18 126/75 92 High Flow Nasal Cannula 9 07/14/24 05:19 63 18 95 Nasal Cannula 10 07/14/24 03:28 36.6 C 63 20 137/77 94 Nasal Cannula 10 07/13/24 22:58 36.6 C 55 L 18 135/77 98 Nasal Cannula 10 PG Care Time/CCT Total # of Minutes Spent Total Time Spent with Patient: Total time spent is greater than 50% in coordination of care (as documented) at patient's floor/unit and/or counseling patient: Coding Level of Care Code 54523 SUB INP/OBS CARE 2/35MIN Diagnoses Idiopathic interstitial pneumonia J84.111 Pneumomediastinum J98.2 Thickening of esophagus K22.89
[2024-07-14] MEDS: SODIUM CHLORIDE 0.65% NA SOLN 45 ML (OCEAN) ONE (10:53)
[2024-07-14 11:11] LABS: Hep C Ab Rflx HepCQuant RNA Negative (Negative)
[2024-07-14 11:13] LABS: Hep B Surface Ag with confirm Negative (Negative)
[2024-07-14] MEDS: FUROSEMIDE 40 MG/4 ML VIAL IV ONE (11:55)
--- NOTE | 2024-07-14 12:31 | Hospitalist Progress Note ---
Date of Service July 14, 2024 Assessment & Plan (1) Diffuse interstitial pulmonary fibrosis: Plan: Presented with increasing shortness of breath and now has acute hypoxic respiratory failure Secondary to idiopathic interstitial pulmonary fibrosis with interstitial pneumonia Negative BioFire on admission Complicated by pneumomediastinum Appreciate pulmonary input and recommendation Has been on intravenous Solu-Medrol, antibiotics, nebulized bronchodilator and oxygen Awaiting further serological test High risk of any anesthesia or lung biopsy and any procedure Pneumomediastinum Spontaneous likely secondary to cough Denies any pain or any other significant symptoms at rest Without any esophageal injury or leak Will observe (2) Acute hypoxic respiratory failure: (3) Esophageal abnormality: Plan: Has been complaining of problems with swallowing for at least 4 to 6 weeks Significant weight loss of about 30 pounds for a long time with decreased appetite Appreciate GI input and recommendation He has been tolerating liquid diet Plan for possible EGD when pulmonary status is improved (4) Idiopathic interstitial pneumonia: (5) Pneumomediastinum: (6) Transaminitis: Plan: Hepatitis panel has been negative Ultrasound did not show gallstones and sludge without any evidence of cholecystitis Will monitor LFTs for now 7.1 cm cystic focus is seen between the liver and the right kidney Will get an abdominal CT scan with improvement of her general condition (7) Cholelithiasis: (8) HTN (hypertension): Plan Note from prior hospitalist: Patient with acute hypoxic respiratory failure due to idiopathic interstitial pneumonitis with evidence of pneumomediastinum on CT at the time of admission. Unclear etiology of pneumomediastinum and consider possible small bleb rupture versus possible air from esophagus with evidence of esophageal thickening on CT. Communication with GI and pulmonary team today. Continue oxygen support, continue steroids. GI and pulmonary to coordinate potential EGD and bronchoscopy when patient's respiratory status slightly more stable and improved. Anticipate patient may need intubation and mechanical ventilation with these procedures. Continue steroids Continue to titrate oxygen as able Continue antitussives Care management to coordinate return to [facility] or alternate level of care when GI and pulmonary procedures completed and patient improved 51 minutes, coordinating care, review of records, care at the bedside Admission and Anticipated Discharge Date Admission Date: July 09, 2024 Subjective 07/14/2024 The patient was seen and examined in telemetry unit He has been complaining of increasing shortness of breath with cough and phlegm and also problem with swallowing for the last 4 to 6 weeks Still requiring 15 L oxygen via high flow nasal cannula to maintain saturation He has been tolerating liquid diet Showing a little improvement since admission Review of Systems Review of Systems: All systems reviewed and are unremarkable except as noted below Physical Exam Physical Exam: Sitting on a chair with acute distress due to shortness of breath Constitutional: + ill appearing and average body habitus Eyes: PERRL, conjunctivae normal, anicteric sclerae ENMT: external ear and nose normal, oropharynx normal Neck: trachea midline, no thyromegaly Respiratory: + respiratory distress Auscultation: + diminished lung sounds, + crackles (Bilateral crackles) and + wheezes (Occasional wheezing bilaterally) Cardiovascular: Rate/Rhythm: regular rate and regular rhythm; not tachycardic Heart Sounds: normal S1 and normal S2; no murmur Extremities: no edema Gastrointestinal (Abdomen): Inspection/Auscultation: normal bowel sounds; abdomen not distended Percussion/Palpation: abdomen soft; abdomen nontender Musculoskeletal: No acute arthritis involving any of the joints Neurologic: normal touch/pain/proprioception and moves all extremities; no focal motor deficits Psychiatric: A+Ox3, euthymic affect Lymphatic: no cervical or axillary lymphadenopathy Results & Data Results & Data Vital Signs (Past 12 Hours) Vital Signs Temp Pulse Resp BP Pulse Ox O2 Del Method O2 Flow Rate 07/14/24 11:50 36.1 C L 73 20 125/81 93 High Flow Nasal Cannula 15 07/14/24 07:09 36.6 C 70 18 126/75 92 High Flow Nasal Cannula 9 07/14/24 05:19 63 18 95 Nasal Cannula 10 07/14/24 03:28 36.6 C 63 20 137/77 94 Nasal Cannula 10 Laboratory Results Cardiac Enzymes 07/13/24 Range/Units 14:44 Total Creatine Kinase 41 (30-223) U/L Labs noted from 07/13/2024 Medications Administered Current Inpatient Medications Acetaminophen (Acetaminophen 500 Mg Tab) 500 mg PO Q6H PRN PRN Reason: fever/pain Stop: 08/12/24 20:47 Atropine Sulfate (Atropine Sulfate 0.1 Mg/Ml 10ml Syr) 1 mg IV Q3M PRN PRN Reason: symptomatic bradycardia Stop: 08/09/24 22:32 Enoxaparin Sodium (Enoxaparin Inj 40 Mg/0.4 Ml Syr) 40 mg SQ DAILY@1700 DEYA Stop: 08/09/24 16:59 Last Admin: 07/13/24 16:44 Dose: 40 mg Guaifenesin/Dextromethorphan (Guaifenesin/Dextrom Syrup 100mg/10mg 5ml Udc) 5 ml PO Q6H [facility] Stop: 08/08/24 16:59 Last Admin: 07/14/24 09:01 Dose: 5 ml Methylprednisolone 40 mg/ (Syringe) 0.64 mls @ 1.5 mls/min IV Q12H DEYA Stop: 08/09/24 00:59 Last Admin: 07/14/24 00:55 Dose: 1.5 mls/min Azithromycin 250 mg/ Dextrose 252.5 mls @ 125 mls/hr IV Q24H DEYA Stop: 07/18/24 13:59 Last Infusion: 07/13/24 16:02 Dose: Infused Pantoprazole Sodium 40 mg/ (Syringe) 10 mls @ 5 mls/min IV BID DEYA Stop: 08/09/24 20:59 Last Admin: 07/14/24 09:01 Dose: 5 mls/min Morphine Sulfate (Morphine Sulfate 2 Mg/Ml Carp) 2 mg IV Q3H PRN PRN Reason: Pain Stop: 07/28/24 04:17 Last Admin: 07/14/24 05:45 Dose: 2 mg Oxycodone HCl (Oxycodone Hcl Ir 5 Mg Tab (Immediate Release)) 5 - 10 mg PO QID PRN PRN Reason: Pain Stop: 07/28/24 04:18 Last Admin: 07/14/24 09:13 Dose: 10 mg
[2024-07-14 14:37] LABS: Hepatitis A Antibody IgM NON-REACTIVE (NON-REACTIVE); Hepatitis B Core Antibody IgM NON-REACTIVE (NON-REACTIVE)
--- NOTE | 2024-07-14 15:42 | Electrocardiogram Report ---
Test Reason : Blood Pressure : */* mmHG Vent. Rate : 57 BPM Atrial Rate : 57 BPM P-R Int : 146 ms QRS Dur : 128 ms QT Int : 488 ms P-R-T Axes : 8 -37 4 degrees QTcB Int : 474 ms Sinus bradycardia with Premature atrial complexes Left axis deviation Left anterior fascicular block Right bundle branch block Voltage criteria for left ventricular hypertrophy T wave abnormality, consider lateral ischemia Abnormal ECG When compared with ECG of 09-Jul-2024 10:25, Premature atrial complexes are now Present Inverted T waves have replaced nonspecific T wave abnormality in Inferior leads Nonspecific T wave abnormality now evident in Lateral leads Confirmed by Yenni Davis (Unique) on 07/11/2024 6:58:23 PM Referred By: [facility] Confirmed By: Yenni Davis
--- NOTE | 2024-07-14 16:45 | Gastroenterology Progress Note ---
Date of Service July 14, 2024 Assessment & Plan (1) Esophageal abnormality: Plan: Still waiting on condition to allow endoscopy and/or bronchoscopy without hurting him. Ready to proceed when pulmonary feels it will be okay Admission and Anticipated Discharge Date Admission Date: July 09, 2024 Subjective Seems to be in good spirits. Still with pain in his chest Physical Exam Physical Exam: He looks comfortable Results & Data Vital Signs (Past 12 Hours) Vital Signs Temp Pulse Resp BP Pulse Ox O2 Del Method O2 Flow Rate 07/14/24 15:27 36.9 C 75 20 121/77 98 High Flow Nasal Cannula 10.0 07/14/24 11:50 36.1 C L 73 20 125/81 93 High Flow Nasal Cannula 15 07/14/24 10:45 High Flow Nasal Cannula 10 07/14/24 07:09 36.6 C 70 18 126/75 92 High Flow Nasal Cannula 9 07/14/24 05:19 63 18 95 Nasal Cannula 10
[2024-07-15 07:23] LABS: Basophils # (auto) 0.03 K/uL (0.00-0.20); Basophils % (auto) 0.2 %; Eosinophils # (auto) 0.01 K/uL (0.00-0.50); Eosinophils % (auto) 0.1 %; Hematocrit (blood only) 40.9 % (42.0-52.0); Hemoglobin 12.8 g/dl (14.0-18.0); Immature Granulocytes # (auto) 0.22 K/uL (0.01-0.20); Immature Granulocytes % (auto) 1.6 %; Lymphocytes # (auto) 0.66 K/uL (1.20-3.40); Lymphocytes % (auto) 4.7 %; Mean Corpuscular Hemoglobin 25.4 pg (25.0-34.0); Mean Corpuscular Hgb Conc 31.3 g/dL (32.0-36.0); Mean Corpuscular Volume 81.2 fL (80.0-100.0); Mean Platelet Volume 9.2 fL (9.4-12.4); Monocytes # (auto) 1.02 K/uL (0.11-0.59); Monocytes % (auto) 7.3 %; Neutrophils # (auto) 12.08 K/uL (1.40-6.50); Neutrophils % (auto) 86.1 %; Platelet Count 377 K/uL (130-400); RDW Coefficient of Variation 14.9 % (11.5-14.5); RDW Standard Deviation 42.6 fL (36.4-46.3); Red Blood Count 5.04 M/uL (4.70-6.10); White Blood Count 14.02 K/ul (4.8-10.8)
[2024-07-15 08:03] LABS: Albumin Globulin Ratio 0.6 (0.9-2); Albumin Level 2.8 gm/dl (3.4-5.0); BUN Creatinine Ratio 32.6 (10-20); Bilirubin,Total 2.9 mg/dl (0.2-1.0); Creatinine Clr Calc Pharmacy 75.4 ml/min; Est GFR (Non-African American) 85.4 ml/min; Globulin 4.4 gm/dl (2.5-4.0); Magnesium 2.3 mg/dl (1.7-2.4); Potassium 4.5 mmol/L (3.5-5.1); Total Protein 7.2 gm/dl (6.0-8.3)
--- NOTE | 2024-07-15 08:34 | XRay Report ---
XR chest 1V portable HISTORY: Shortness of breath. COMPARISON: Chest 07/06/2024. FINDINGS: No pneumothorax. Chronic interstitial thickening/fibrotic changes again noted. The heart re ann mildly enlarged. There are low lung volumes. No acute fractures. Patchy bibasilar densities per sist. No new focal lung consolidations. No evidence for pulmonary edema. IMPRESSION: No significant change in the chronic fibrotic change and patchy bibasilar densities. ACT 112: Negative or not required by law. Electronically signed by: Duran Brandt M.D. 07/15/2024 8:33 AM
--- NOTE | 2024-07-15 10:24 | Critical Care Consultation ---
Date of Consultation July 15, 2024 Assessment & Plan (1) Acute hypoxic respiratory failure: Oxygen requirements have improved dramatically likely due to progression of interstitial opacities and possible aspiration. Will make the patient n.p.o. at this time. Low threshold for intubation or mechanical ventilation. Patient transferred to ICU. (2) Idiopathic interstitial pneumonia: Patient with evidence of idiopathic interstitial pneumonia which is likely chronic. Suspect undifferentiated diffuse parenchymal lung disease. Etiologies are broad including chronic eosinophilic pneumonia given the subpleural groundglass opacities versus NSIP versus chronic aspiration and an atypical pattern of UIP/IPF. Other possibilities include chronic atypical infection such as nontuberculous Mycobacterium and widespread pulmonary malignancy. Would benefit from outpatient PFTs and and outpatient rheumatologic workup. Empiric steroids reasonable at this time. Continue azithromycin for possible superimposed atypical bacterial infection. Respiratory viral panel was negative on admission. Rheumatologic labs pending. Should his hypoxemia worsen or he continues to decline, may have to pursue intubation and mechanical ventilation. This is a bit tricky as the patient does have pneumomediastinum. Will have to maintain lower PEEP values and plateau pressures. Continue broad-spectrum antibiotics. May have to increase dose of methylprednisone. Will keep n.p.o. for the time being. (3) Pneumomediastinum: Patient with spontaneous pneumomediastinum likely secondary to cough. Agree with codeine as needed to suppress cough is much as possible. Other etiologies include microperforation related to esophageal wall thickening noted on CT chest. Continue supportive management. (4) Thickening of esophagus: Patient endorses a 30 pound weight loss with decreased appetite. Highly suspicious for possible malignancy. Protonix 40 mg twice daily. GI consult noted. Plan Thank you for the consult. Will follow with you. Please call with questions. History of Present Illness Reason for Consultation: Worsening hypoxemic respiratory failure now on high flow Attending Physician: Aysha Martinez MD History of Present Illness 74-year-old male with a history of tobacco abuse who presented to the hospital with symptoms of acute pneumonia. He has had increasingly worsening oxygen demands and is now on high flow oxygen at max settings. Patient remains a full code. Today when transitioning from his bed to wheelchair to go for CT scan he desaturated substantially and is now on high flow. Continues to have a cough. Appetite remains poor. Allergies Allergy/AdvReac Type Severity Reaction Status Date / Time thiopental [From Pentothal] AdvReac Severe violence Verified 07/10/24 22:36 Home Medications Medication Instructions Recorded Confirmed Type atorvastatin 40 mg tablet 40 mg PO HS #0 tabs 07/14/14 07/09/24 History amlodipine 10 mg tablet 10 mg PO DAILY 07/09/24 07/09/24 History Patient History Surgical History H/O shoulder surgery Family History Other Cancer Social History Smoking Status: Former smoker Hx Alcohol Use: No Hx Substance Use: No Preferred Language: Urdu Communication Ability: Effective Warehouse Order Selector Required: No Beliefs That Will Affect Care: None Current Living Situation: Other Current Living Situation Comment: [facility] inmate Feels Safe at Home: Yes Assistive Devices: None Review of Systems Review of Systems: All systems reviewed & are unremarkable except as noted in HPI & below Physical Exam Physical Exam: VITAL SIGNS Vital signs and nursing notes were reviewed. GENERAL 74-year-old male appearing his stated age who is in no acute distress. Communicates well with provider and answers questions appropriately. LUNGS Chest wall evaluation demonstrates normal chest wall A:P diameter. Auscultation reveals diffuse crackles extending up both lung souza bilaterally. CARDIAC RRR with S1/S2. No murmur, rubs, or gallops appreciated. EXTREMITIES Nail clubbing not present. No peripheral cyanosis. No pretibial edema present. +3/5 radial palpated throughout. PSYCH A&Ox3 and cooperates fully with examiner. Pt is very pleasant and inter acts well with examiner. Results & Data Results & Data Vital Signs (Past 12 Hours) Vital Signs Temp Pulse Resp BP Pulse Ox O2 Del Method O2 Flow Rate 07/15/24 10:00 92 High Flow Nasal Cannula 60 07/15/24 09:56 75 20 92 High Flow Nasal Cannula 60 07/15/24 09:17 High Flow Nasal Cannula 10 07/15/24 07:44 36.3 C L 59 L 22 114/72 96 High Flow Nasal Cannula 07/15/24 03:56 36.8 C 63 20 114/70 93 High Flow Nasal Cannula 10 07/14/24 23:28 36.5 C 62 18 123/72 97 High Flow Nasal Cannula 10 FiO2 07/15/24 10:00 100 07/15/24 09:56 100 07/15/24 09:17 07/15/24 07:44 07/15/24 03:56 07/14/24 23:28 Coding Level of Care Code 87168 CRITICAL CARE 1ST 30-74M Diagnoses Acute hypoxic respiratory failure J96.01 Idiopathic interstitial pneumonia J84.111 Pneumomediastinum J98.2 Thickening of esophagus K22.89 Time Spent (min) 48
--- NOTE | 2024-07-15 10:28 | Communication Note ---
Date of Service: July 15, 2024 Transfer to ICU noted. I will be going off service for the next two weeks. If it is ever decided that EGD is safe or needed please call GI conveyancer and they will arrange it.
[2024-07-15] MEDS: FUROSEMIDE 40 MG/4 ML VIAL IV ONE (12:10)
--- NOTE | 2024-07-15 13:30 | Hospitalist Progress Note ---
Date of Service July 15, 2024 Assessment & Plan (1) Diffuse interstitial pulmonary fibrosis: Plan: Presented with increasing shortness of breath and now has acute hypoxic respiratory failure Secondary to idiopathic interstitial pulmonary fibrosis with interstitial pneumonia Negative BioFire on admission Complicated by pneumomediastinum Appreciate pulmonary input and recommendation Has been on intravenous Solu-Medrol, antibiotics, nebulized bronchodilator and oxygen Awaiting further serological test High risk of any anesthesia or lung biopsy and any procedure Condition deteriorated and he was transferred to ICU for continued care Clinically little better in ICUwill continue current management Pneumomediastinum Spontaneous likely secondary to cough Denies any pain or any other significant symptoms at rest Without any esophageal injury or leak Will observe (2) Acute hypoxic respiratory failure: (3) Esophageal abnormality: Plan: Has been complaining of problems with swallowing for at least 4 to 6 weeks Significant weight loss of about 30 pounds for a long time with decreased appetite Appreciate GI input and recommendation He has been tolerating liquid diet Plan for possible EGD when pulmonary status is improved Has been tolerating liquid diet without any problem May need EGD to evaluate esophageal lesions further (4) Idiopathic interstitial pneumonia: Plan: Will continue with the current antibiotic team's (5) Pneumomediastinum: (6) Transaminitis: Plan: Hepatitis panel has been negative Ultrasound did not show gallstones and sludge without any evidence of cholecystitis Will monitor LFTs for now LFTs are improving 7.1 cm cystic focus is seen between the liver and the right kidney Will get an abdominal CT scan with improvement of her general condition (7) Cholelithiasis: (8) HTN (hypertension): Plan Note from prior hospitalist: Patient with acute hypoxic respiratory failure due to idiopathic interstitial pneumonitis with evidence of pneumomediastinum on CT at the time of admission. Unclear etiology of pneumomediastinum and consider possible small bleb rupture versus possible air from esophagus with evidence of esophageal thickening on CT. Communication with GI and pulmonary team today. Continue oxygen support, continue steroids. GI and pulmonary to coordinate potential EGD and bronchoscopy when patient's respiratory status slightly more stable and improved. Anticipate patient may need intubation and mechanical ventilation with these procedures. Continue steroids Continue to titrate oxygen as able Continue antitussives Care management to coordinate return to [facility] or alternate level of care when GI and pulmonary procedures completed and patient improved 51 minutes, coordinating care, review of records, care at the bedside Admission and Anticipated Discharge Date Admission Date: July 09, 2024 Subjective 07/14/2024 The patient was seen and examined in telemetry unit He has been complaining of increasing shortness of breath with cough and phlegm and also problem with swallowing for the last 4 to 6 weeks Still requiring 15 L oxygen via high flow nasal cannula to maintain saturation He has been tolerating liquid diet Showing a little improvement since admission 07/15/2024 The patient was seen and examined in ICU This condition did not improve and was having more shortness of breath with desaturation and he was transferred to ICU for continued care Has been feeling little better in ICU Denies any significant symptoms at rest but has shortness of breath Review of Systems Review of Systems: All systems reviewed and are unremarkable except as noted below Physical Exam Physical Exam: Lying in bed with acute distress due to shortness of breath Constitutional: + ill appearing and average body habitus Eyes: PERRL, conjunctivae normal, anicteric sclerae ENMT: external ear and nose normal, oropharynx normal Neck: trachea midline, no thyromegaly Respiratory: + respiratory distress Auscultation: + diminished lung sounds, + crackles (Bilateral crackles) and + wheezes (Occasional wheezing bilaterally) Cardiovascular: Rate/Rhythm: regular rate and regular rhythm; not tachycardic Heart Sounds: normal S1 and normal S2; no murmur Extremities: no edema Gastrointestinal (Abdomen): Inspection/Auscultation: normal bowel sounds; abdomen not distended Percussion/Palpation: abdomen soft; abdomen nontender Musculoskeletal: No acute arthritis involving any of the joint Neurologic: normal touch/pain/proprioception and moves all extremities; no focal motor deficits Psychiatric: A+Ox3, euthymic affect Lymphatic: no cervical or axillary lymphadenopathy Results & Data Results & Data Vital Signs (Past 12 Hours) Vital Signs Temp Pulse Pulse Resp BP BP Pulse Ox 07/15/24 12:39 63 23 90 07/15/24 12:30 135/74 07/15/24 12:15 60 31 H 91 07/15/24 12:15 135/66 07/15/24 12:00 62 29 H 87 L 07/15/24 11:48 59 L 23 90 07/15/24 11:33 60 33 H 90 07/15/24 11:30 117/69 07/15/24 11:30 117/69 07/15/24 11:25 78 26 H 92 07/15/24 11:09 61 22 89 L 07/15/24 11:09 07/15/24 11:09 63 07/15/24 11:00 64 28 H 95 07/15/24 11:00 115/70 07/15/24 11:00 115/70 90 07/15/24 10:53 110/65 95 07/15/24 10:53 110/65 07/15/24 10:42 61 25 H 99 07/15/24 10:30 61 24 97 07/15/24 10:00 92 07/15/24 09:56 75 20 92 07/15/24 09:17 07/15/24 07:44 36.3 C L 59 L 22 114/72 96 07/15/24 03:56 36.8 C 63 20 114/70 93 O2 Del Method O2 Flow Rate FiO2 07/15/24 12:39 14 07/15/24 12:30 07/15/24 12:15 14 07/15/24 12:15 14 07/15/24 12:00 12 07/15/24 11:48 14 07/15/24 11:33 14 07/15/24 11:30 07/15/24 11:30 07/15/24 11:25 Nasal Cannula 12 07/15/24 11:09 07/15/24 11:09 High Flow Nasal Cannula 07/15/24 11:09 07/15/24 11:00 07/15/24 11:00 07/15/24 11:00 70 07/15/24 10:53 70 07/15/24 10:53 07/15/24 10:42 07/15/24 10:30 07/15/24 10:00 High Flow Nasal Cannula 60 100 07/15/24 09:56 High Flow Nasal Cannula 60 100 07/15/24 09:17 High Flow Nasal Cannula 10 07/15/24 07:44 High Flow Nasal Cannula 07/15/24 03:56 High Flow Nasal Cannula 10 Laboratory Results Short CBC 07/15/24 Range/Units 07:03 WBC 14.02 H (4.8-10.8) K/ul Hgb 12.8 L (14.0-18.0) g/dl Hct 40.9 L (42.0-52.0) % Plt Count 377 (130-400) K/uL BMP 07/15/24 07:03 Sodium 132 L Potassium 4.5 Chloride 97 L Carbon Dioxide 32 BUN 28 H Creatinine 0.86 Glucose 118 H Calcium 9.0 Liver Function 07/15/24 Range/Units 07:03 Total Bilirubin 2.9 H (0.2-1.0) mg/dl AST 43 H (13-39) U/L ALT 96 H (7-52) U/L Alkaline Phosphatase 146 H (34-104) U/L Albumin 2.8 L (3.4-5.0) gm/dl Medications Administered Current Inpatient Medications Acetaminophen (Acetaminophen 500 Mg Tab) 500 mg PO Q6H PRN PRN Reason: fever/pain Stop: 08/12/24 20:47 Atropine Sulfate (Atropine Sulfate 0.1 Mg/Ml 10ml Syr) 1 mg IV Q3M PRN PRN Reason: symptomatic bradycardia Stop: 08/09/24 22:32 Methylprednisolone 40 mg/ (Syringe) 0.64 mls @ 1.5 mls/min IV Q12H DEYA Stop: 08/09/24 00:59 Last Admin: 07/15/24 12:10 Dose: 1.5 mls/min Azithromycin 250 mg/ Dextrose 252.5 mls @ 125 mls/hr IV Q24H DEYA Stop: 07/18/24 13:59 Last Infusion: 07/14/24 16:29 Dose: Infused Pantoprazole Sodium 40 mg/ (Syringe) 10 mls @ 5 mls/min IV BID DEYA Stop: 08/09/24 20:59 Last Admin: 07/15/24 09:12 Dose: 5 mls/min
--- NOTE | 2024-07-15 13:38 | XRay Report ---
SINGLE VIEW CHEST CLINICAL HISTORY: Hypoxia. FINDINGS: An AP, portable, upright chest radiograph is compared to study performed earlier the same d ay 07/15/2024 and correlated with chest CT dated 07/09/2024. The heart is enlarged. The pulmonary vascu lature is not congested. Again seen is diffuse interstitial thickening and subpleural reticulation. M ore focal airspace opacities are seen in the mid to lower lungs bilaterally. No large pleural effusio n or pneumothorax is identified. Pneumomediastinum seen by CT is not apparent on x-ray. The skeletal structures are osteopenic. The bony thorax is grossly intact. Postsurgical change is seen in the left proximal humerus. IMPRESSION: 1. Cardiomegaly without radiographic evidence of congestive failure. 2. Findings of chronic interstitial/fibrotic lung disease are similar previous. Superimposed airspace opacities at the lung bases are unchanged. 3. Pneumomediastinum seen by CT is not apparent on x-ray. There is no pneumothorax. ACT 112: Negative or not required by law. Electronically signed by: Scout Felton M.D. 07/15/2024 1:37 PM
[2024-07-15] MEDS ORDERED: methylPREDNISolone 125 MG/2 ML VIAL IV SCH (15:15)
--- NOTE | 2024-07-15 15:36 | CT Scan Report ---
CT SCAN OF THE CHEST WITHOUT IV CONTRAST CLINICAL HISTORY: Hypoxia. COMPARISON STUDY: Chest CT dated 07/09/2004. Chest x-ray dated 07/15/2024. TECHNIQUE: CT scan of the thorax was performed from the thoracic inlet to the upper abdomen. Images are reviewed in the axial, sagittal, and coronal planes. IV contrast was not administered for this ex amination as per the referring clinician. A dose lowering technique was utilized adhering to the deana Mcnair. CT DOSE: 569.15 mGy.cm FINDINGS: Thyroid: Imaged portions of the thyroid gland are normal in size and attenuation. Thoracic aorta: There is mild atherosclerotic calcification of the thoracic aorta, which is normal in caliber and demonstrates standard 3-vessel arch anatomy. Heart: The heart is enlarged noting trace pericardial effusion. The coronary arteries are densely ton cified. Lungs and pleural spaces: Emphysematous change is suspected. There is diffuse subpleural reticulation with groundglass and parenchymal opacities seen throughout both lungs. This shows a subpleural and l ower lobe predominance, and is typical for chronic interstitial/fibrotic lung disease. There is mild traction bronchiectasis in the lower lobes. No honeycombing is seen. There are increasing bibasilar a irspace opacities as compared to the 07/09/2024 examination. No pneumothorax is seen. The trachea and central airways are clear. There are trace pleural effusions. Mediastinum: Pneumomediastinum persists. There is also a small amount of deep soft tissue gas in the lower neck. There is no mediastinal lymphadenopathy. Winsome: Not well assessed without IV contrast. Axillae: There is no axillary lymphadenopathy. Upper abdomen: There are numerous calcified gallstones. The esophagus appears diffusely thick walled. Calcified granulomas are noted in the spleen. Skeletal structures: The skeletal structures are osteopenic. Degenerative change and mild compression deformities are noted in the thoracic spine. No lytic or blastic bony lesions are seen. Postsurgical change is noted in the left proximal humerus. Arthritic change is seen in the shoulders. IMPRESSION: 1. Emphysematous change is suspected and there is evidence of chronic interstitial/fibrotic lung dise ase as detailed above. 2. Cardiomegaly. 3. There is increasing airspace consolidation with a subpleural and lower lobe predominance as compar ed to the 07/09/2024 examination. This could represent a superimposed pneumonia, pulmonary edema, hemo rrhage, and/or ARDS. Clinical correlation will be essential and radiographic follow-up to resolution is recommended. 4. Trace pleural effusions. 5. Pneumomediastinum persists, and there is a small amount of deep soft tissue gas in the lower neck. 6. No pneumothorax is seen. 7. Cholelithiasis. 8. The esophagus appears diffusely thick-walled. Correlate clinically for evidence of esophagitis. If warranted this could be further assessed with endoscopy. 9. Additional findings as above. ACT 112: Negative or not required by law. Electronically signed by: Scout Felton M.D. 07/15/2024 3:35 PM
[2024-07-15] MEDS ORDERED: methylPREDNISolone 125 MG in SYRINGE 0 ML IV SCH (16:00)
[2024-07-15] MEDS: PIPERACILLIN/TAZOBACTAM 4.5 GM/100 ML BAG IV ONE (16:12)
[2024-07-15] MEDS: methylPREDNISolone 250 MG in DEXTROSE 5% 100 ML IV SCH (16:27)
[2024-07-15] MEDS: PIPERACILLIN/TAZOBACTAM 4.5 GM/100 ML BAG IV SCH (21:15)
[2024-07-16 04:05] LABS: Basophils # (auto) 0.01 K/uL (0.00-0.20); Basophils % (auto) 0.1 %; Hematocrit (blood only) 40.2 % (42.0-52.0); Hemoglobin 12.8 g/dl (14.0-18.0); Immature Granulocytes # (auto) 0.13 K/uL (0.01-0.20); Immature Granulocytes % (auto) 1.2 %; Lymphocytes # (auto) 0.58 K/uL (1.20-3.40); Lymphocytes % (auto) 5.5 %; Mean Corpuscular Hemoglobin 25.5 pg (25.0-34.0); Mean Corpuscular Hgb Conc 31.8 g/dL (32.0-36.0); Mean Corpuscular Volume 80.1 fL (80.0-100.0); Mean Platelet Volume 9.3 fL (9.4-12.4); Monocytes # (auto) 0.46 K/uL (0.11-0.59); Monocytes % (auto) 4.4 %; Neutrophils # (auto) 9.38 K/uL (1.40-6.50); Neutrophils % (auto) 88.8 %; Platelet Count 382 K/uL (130-400); RDW Coefficient of Variation 14.6 % (11.5-14.5); RDW Standard Deviation 41.7 fL (36.4-46.3); Red Blood Count 5.02 M/uL (4.70-6.10); White Blood Count 10.56 K/ul (4.8-10.8)
[2024-07-16 04:18] LABS: BUN Creatinine Ratio 32.4 (10-20); Calcium 9.5 mg/dl (8.6-10.3); Creatinine Clr Calc Pharmacy 58.4 ml/min; Est GFR (African American) 75.4 ml/min; Est GFR (Non-African American) 65.1 ml/min; Magnesium 2.5 mg/dl (1.7-2.4); Potassium 4.5 mmol/L (3.5-5.1)
--- NOTE | 2024-07-16 08:33 | XRay Report ---
XR chest 1V portable CLINICAL HISTORY: eval lung souza and pneumomediastinum COMPARISON STUDY: Chest radiograph and chest CT July 15, 2024. FINDINGS: There is no pneumothorax. Trace bilateral pleural effusions are present. Pneumomediastinum is similar to prior CT. Cardiomegaly is unchanged. Underlying interstitial thickening is present. Bib asilar opacities persist. IMPRESSION: 1. Redemonstration of pneumomediastinum. No pneumothorax. 2. Persistent bibasilar opacities which could reflect pneumonia, pulmonary edema or hemorrhage superi mposed upon interstitial lung disease. 3. Trace bilateral pleural effusions. ACT 112: Negative or not required by law. Electronically signed by: Fabian Medrano M.D. 07/16/2024 8:32 AM
--- NOTE | 2024-07-16 10:06 | Critical Care Progress Note ---
Date of Service July 16, 2024 Assessment & Plan (1) Acute hypoxic respiratory failure: Plan: Nonspecific ILD causing severe hypoxemia. Low threshold for intubation mechanical ventilation. Discussed CODE STATUS again with the patient and he indicates that he would like to be a full code at this time. Prognosis is quite poor given the progression of pneumonia and ILD. I started him on a burst of IV methylprednisolone 250 mg every 6 hours and we will continue this for a total to 3 days. Will then decrease to 40 mg IV twice daily. (2) Idiopathic interstitial pneumonia: Plan: Patient with evidence of idiopathic interstitial pneumonia which is likely chronic. Suspect undifferentiated diffuse parenchymal lung disease. Etiologies are broad including chronic eosinophilic pneumonia given the subpleural groundglass opacities versus NSIP versus chronic aspiration and an atypical pattern of UIP/IPF. Other possibilities include chronic atypical infection such as nontuberculous Mycobacterium and widespread pulmonary malignancy. Would benefit from outpatient PFTs and and outpatient rheumatologic workup. Empiric steroids reasonable at this time. Continue azithromycin for possible superimposed atypical bacterial infection. Respiratory viral panel was negative on admission. Rheumatologic labs pending. Should his hypoxemia worsen or he continues to decline, may have to pursue intubation and mechanical ventilation. This is a bit tricky as the patient does have pneumomediastinum. Will have to maintain lower PEEP values and plateau pressures. Antibiotics broadened to Zosyn 07/15/2024. Will keep n.p.o. for the time being. (3) Pneumomediastinum: Plan: Patient with spontaneous pneumomediastinum likely secondary to cough. Agree with codeine as needed to suppress cough is much as possible. Other etiologies include microperforation related to esophageal wall thickening noted on CT chest. Continue supportive management. (4) Thickening of esophagus: Plan: Patient endorses a 30 pound weight loss with decreased appetite. Highly suspi cious for possible malignancy. Protonix 40 mg twice daily. GI consult noted. Plan CRITICAL CARE TIME I have personally spent 38 minutes of critical care time in the direct management of this patient. This is a life/limb threatening event. This includes time spent evaluating patient, direct bedside care, chart review, placing orders, interpretation of diagnostic studies, discussion with consultants, patient, and family members, as well as other required patient management activities. This time is exclusive of all separately billable procedures, and teaching time and separate from and in addition to any other critical care service time. Admission and Anticipated Discharge Date Admission Date: July 09, 2024 Subjective Patient continues requiring high flow oxygen and is complaining of moderate chest pain. Has been essentially bedbound and appetite has been very poor. Review of Systems Review of Systems: All systems reviewed & are unremarkable except as noted in HPI & below Physical Exam Physical Exam: VITAL SIGNS Vital signs and nursing notes were reviewed. GENERAL 74-year-old male appearing his stated age who is in no acute distress. Communicates well with provider and answers questions appropriately. LUNGS Chest wall evaluation demonstrates normal chest wall A:P diameter. Auscultation reveals diffuse crackles extending up both lung souza bilaterally. CARDIAC RRR with S1/S2. No murmur, rubs, or gallops appreciated. EXTREMITIES Nail clubbing not present. No peripheral cyanosis. No pretibial edema present. +3/5 radial palpated throughout. PSYCH A&Ox3 and cooperates fully with examiner. Pt is very pleasant and interacts well with examiner. Results & Data Results & Data Vital Signs (Past 12 Hours) Vital Signs Pulse Pulse Pulse Resp BP Pulse Ox O2 Del Method 07/16/24 10:00 55 L 18 92 High Flow Nasal Cannula 07/16/24 08:00 55 L 07/16/24 08:00 119/68 07/16/24 08:00 119/68 07/16/24 08:00 55 L 18 97 07/16/24 07:57 54 L 20 96 07/16/24 07:41 58 L 17 96 High Flow Nasal Cannula 07/16/24 07:30 High Flow Nasal Cannula 07/16/24 07:30 55 L 23 93 07/16/24 07:15 53 L 17 91 07/16/24 07:00 124/71 07/16/24 06:57 53 L 17 91 07/16/24 06:45 58 L 34 H 89 L 07/16/24 06:33 56 L 14 94 07/16/24 06:30 134/75 07/16/24 06:30 134/75 07/16/24 06:15 52 L 18 92 07/16/24 06:00 140/77 07/16/24 05:48 53 L 18 93 07/16/24 05:45 51 L 18 92 07/16/24 05:30 123/75 07/16/24 05:30 51 L 20 93 07/16/24 05:15 52 L 18 93 08/30/24 05:03 52 L 18 92 07/16/24 05:00 128/73 07/16/24 05:00 128/73 07/16/24 05:00 128/73 07/16/24 04:57 51 L 19 92 07/16/24 04:30 134/75 07/16/24 04:30 134/75 07/16/24 04:24 52 L 20 92 07/16/24 04:06 51 L 19 92 07/16/24 04:00 120/70 07/16/24 04:00 120/70 07/16/24 03:57 50 L 16 92 07/16/24 03:47 52 L 19 94 High Flow Nasal Cannula 07/16/24 03:39 55 L 26 H 90 07/16/24 03:31 130/62 07/16/24 03:31 130/62 07/16/24 03:21 49 L 18 93 07/16/24 03:15 49 L 18 96 07/16/24 03:00 51 L 18 93 07/16/24 03:00 125/74 07/16/24 03:00 125/74 07/16/24 02:30 107/69 07/16/24 02:30 107/69 07/16/24 02:30 50 L 19 94 07/16/24 02:09 51 L 17 96 07/16/24 01:39 49 L 19 96 07/16/24 01:30 106/65 07/16/24 01:30 106/65 07/16/24 01:02 49 L 20 97 07/16/24 01:00 111/67 07/16/24 01:00 111/67 07/16/24 00:59 52 L 18 96 07/16/24 00:35 50 L 20 96 07/16/24 00:30 136/71 07/16/24 00:26 52 L 19 95 07/16/24 00:08 50 L 18 95 07/16/24 00:00 113/70 07/15/24 23:48 50 L 19 94 07/15/24 23:32 50 L 16 94 07/15/24 23:30 118/67 07/15/24 23:30 118/67 07/15/24 23:30 118/67 07/15/24 23:18 55 L 17 93 08/29/24 23:17 50 L 19 95 07/15/24 23:03 53 L 20 96 High Flow Nasal Cannula 07/15/24 23:00 117/66 07/15/24 23:00 117/66 07/15/24 22:57 51 L 18 95 07/15/24 22:35 52 L 18 95 O2 Flow Rate FiO2 07/16/24 10:00 25 95 07/16/24 08:00 07/16/24 08:00 07/16/24 08:00 07/16/24 08:00 07/16/24 07:57 07/16/24 07:41 25 95 07/16/24 07:30 07/16/24 07:30 07/16/24 07:15 07/16/24 07:00 07/16/24 06:57 07/16/24 06:45 07/16/24 06:33 07/16/24 06:30 07/16/24 06:30 07/16/24 06:15 07/16/24 06:00 07/16/24 05:48 07/16/24 05:45 07/16/24 05:30 07/16/24 05:30 07/16/24 05:15 07/16/24 05:03 07/16/24 05:00 07/16/24 05:00 07/16/24 05:00 07/16/24 04:57 07/16/24 04:30 07/16/24 04:30 07/16/24 04:24 07/16/24 04:06 07/16/24 04:00 07/16/24 04:00 07/16/24 03:57 07/16/24 03:47 30 100 07/16/24 03:39 07/16/24 03:31 07/16/24 03:31 07/16/24 03:21 07/16/24 03:15 07/16/24 03:00 07/16/24 03:00 07/16/24 03:00 07/16/24 02:30 07/16/24 02:30 07/16/24 02:30 07/16/24 02:09 07/16/24 01:39 07/16/24 01:30 07/16/24 01:30 07/16/24 01:02 07/16/24 01:00 07/16/24 01:00 07/16/24 00:59 07/16/24 00:35 07/16/24 00:30 07/16/24 00:26 07/16/24 00:08 07/16/24 00:00 07/15/24 23:48 07/15/24 23:32 07/15/24 23:30 07/15/24 23:30 07/15/24 23:30 07/15/24 23:18 07/15/24 23:17 07/15/24 23:03 30 100 07/15/24 23:00 07/15/24 23:00 07/15/24 22:57 07/15/24 22:35 Coding Level of Care Code 94105 CRITICAL CARE 1ST 30-74M Diagnoses Acute hypoxic respiratory failure J96.01 Idiopathic interstitial pneumonia J84.111 Pneumomediastinum J98.2 Thickening of esophagus K22.89
--- NOTE | 2024-07-16 13:18 | Hospitalist Progress Note ---
Date of Service July 16, 2024 Assessment & Plan (1) Diffuse interstitial pulmonary fibrosis: Plan: Presented with increasing shortness of breath and now has acute hypoxic respiratory failure Secondary to idiopathic interstitial pulmonary fibrosis with interstitial pneumonia Negative BioFire on admission Complicated by pneumomediastinum Appreciate pulmonary input and recommendation Has been on intravenous Solu-Medrol, antibiotics, nebulized bronchodilator and oxygen Awaiting further serological test High risk of any anesthesia or lung biopsy and any procedure Condition deteriorated and he was transferred to ICU for continued care Clinically little better in ICUwill continue current management Not any better today and is still complains to have shortness of breath and minimal chest pain involving the center of the chest Continue with current management and the patient may need intubation down the line Pneumomediastinum Spontaneous likely secondary to cough Denies any pain or any other significant symptoms at rest Without any esophageal injury or leak Chest x-ray did show persistence of pneumomediastinum without any change If requires intubation will need no PEEP and/or decreasing PEEP (2) Acute hypoxic respiratory failure: (3) Esophageal abnormality: Plan: Has been complaining of problems with swallowing for at least 4 to 6 weeks Significant weight loss of about 30 pounds for a long time with decreased appetite Appreciate GI input and recommendation He has been tolerating liquid diet Plan for possible EGD when pulmonary status is improved Has been tolerating liquid diet without any problem May need EGD to evaluate esophageal lesions further He has been tolerating liquid diet without any problem of dysphagia or odynophagia (4) Idiopathic interstitial pneumonia: Plan: Will continue with the current antibiotic team's (5) Pneumomediastinum: (6) Transaminitis: Plan: Hepatitis panel has been negative Ultrasound did not show gallstones and sludge without any evidence of cholecystitis Will monitor LFTs for now LFTs are improving-will check repeat LFT tomorrow 7.1 cm cystic focus is seen between the liver and the right kidney Will get an abdominal CT scan with improvement of her general condition (7) Cholelithiasis: (8) HTN (hypertension): Plan Note from prior hospitalist: Patient with acute hypoxic respiratory failure due to idiopathic interstitial pneumonitis with evidence of pneumomediastinum on CT at the time of admission. Unclear etiology of pneumomediastinum and consider possible small bleb rupture versus possible air from esophagus with evidence of esophageal thickening on CT. Communication with GI and pulmonary team today. Continue oxygen support, continue steroids. GI and pulmonary to coordinate potential EGD and bronchoscopy when patient's respiratory status slightly more stable and improved. Anticipate patient may need intubation and mechanical ventilation with these procedures. Continue steroids Continue to titrate oxygen as able Continue antitussives Care management to coordinate return to jail or alternate level of care when GI and pulmonary procedures completed and patient improved 51 minutes, coordinating care, review of records, care at the bedside Admission and Anticipated Discharge Date Admission Date: July 09, 2024 Subjective 07/14/2024 The patient was seen and examined in telemetry unit He has been complaining of increasing shortness of breath with cough and phlegm and also problem with swallowing for the last 4 to 6 weeks Still requiring 15 L oxygen via high flow nasal cannula to maintain saturation He has been tolerating liquid diet Showing a little improvement since admission 07/15/2024 The patient was seen and examined in ICU This condition did not improve and was having more shortness of breath with desaturation and he was transferred to ICU for continued care Has been feeling little better in ICU Denies any significant symptoms at rest but has shortness of breath 07/16/2024 Patient was seen and examined in ICU He has not been any better and is still complains of shortness of breath and some chest pain/tightness Still requiring high flow oxygen with FiO2 of 95% 25 L/min No fever no chills and denies any nausea and/or vomiting Review of Systems Review of Systems: All systems reviewed and are unremarkable except as noted below Physical Exam Physical Exam: Lying in bed with acute distress due to shortness of breath Constitutional: + ill appearing and average body habitus Eyes: PERRL, conjunctivae normal, anicteric sclerae ENMT: external ear and nose normal, oropharynx normal Neck: trachea midline, no thyromegaly Respiratory: + respiratory distress Auscultation: + diminished lung sounds, + crackles (Bilateral crackles) and + wheezes (Occasional wheezing bilaterally) Cardiovascular: Rate/Rhythm: regular rate and regular rhythm; not tachycardic Heart Sounds: normal S1 and normal S2; no murmur Extremities: no edema Gastrointestinal (Abdomen): Inspection/Auscultation: normal bowel sounds; abdomen not distended Percussion/Palpation: abdomen soft; abdomen nontender Neurologic: normal touch/pain/proprioception and moves all extremities; no focal motor deficits Psychiatric: A+Ox3, euthymic affect Lymphatic: no cervical or axillary lymphadenopathy Results & Data Results & Data Vital Signs (Past 12 Hours) Vital Signs Pulse Pulse Pulse Resp BP Pulse Ox O2 Del Method 07/16/24 10:00 55 L 18 92 High Flow Nasal Cannula 07/16/24 08:00 55 L 07/16/24 08:00 119/68 07/16/24 08:00 119/68 07/16/24 08:00 55 L 18 97 07/16/24 07:57 54 L 20 96 07/16/24 07:41 58 L 17 96 High Flow Nasal Cannula 07/16/24 07:30 High Flow Nasal Cannula 07/16/24 07:30 55 L 23 93 07/16/24 07:15 53 L 17 91 07/16/24 07:00 124/71 07/16/24 06:57 53 L 17 91 07/16/24 06:45 58 L 34 H 89 L 07/16/24 06:33 56 L 14 94 07/16/24 06:30 134/75 07/16/24 06:30 134/75 07/16/24 06:15 52 L 18 92 07/16/24 06:00 140/77 07/16/24 05:48 53 L 18 93 07/16/24 05:45 51 L 18 92 07/16/24 05:30 123/75 07/16/24 05:30 51 L 20 93 07/16/24 05:15 52 L 18 93 07/16/24 05:03 52 L 18 92 07/16/24 05:00 128/73 07/16/24 05:00 128/73 07/16/24 05:00 128/73 07/16/24 04:57 51 L 19 92 07/16/24 04:30 134/75 07/16/24 04:30 134/75 07/16/24 04:24 52 L 20 92 07/16/24 04:06 51 L 19 92 07/16/24 04:00 120/70 07/16/24 04:00 120/70 07/16/24 03:57 50 L 16 92 07/16/24 03:47 52 L 19 94 High Flow Nasal Cannula 07/16/24 03:39 55 L 26 H 90 07/16/24 03:31 130/62 07/16/24 03:31 130/62 07/16/24 03:21 49 L 18 93 07/16/24 03:15 49 L 18 96 07/16/24 03:00 51 L 18 93 07/16/24 03:00 125/74 07/16/24 03:00 125/74 07/16/24 02:30 107/69 07/16/24 02:30 107/69 07/16/24 02:30 50 L 19 94 07/16/24 02:09 51 L 17 96 07/16/24 01:39 49 L 19 96 07/16/24 01:30 106/65 07/16/24 01:30 106/65 O2 Flow Rate FiO2 07/16/24 10:00 25 95 07/16/24 08:00 07/16/24 08:00 07/16/24 08:00 07/16/24 08:00 07/16/24 07:57 07/16/24 07:41 25 95 07/16/24 07:30 07/16/24 07:30 07/16/24 07:15 07/16/24 07:00 07/16/24 06:57 07/16/24 06:45 07/16/24 06:33 07/16/24 06:30 07/16/24 06:30 07/16/24 06:15 07/16/24 06:00 07/16/24 05:48 07/16/24 05:45 07/16/24 05:30 07/16/24 05:30 07/16/24 05:15 07/16/24 05:03 07/16/24 05:00 07/16/24 05:00 07/16/24 05:00 07/16/24 04:57 07/16/24 04:30 07/16/24 04:30 07/16/24 04:24 07/16/24 04:06 07/16/24 04:00 07/16/24 04:00 07/16/24 03:57 07/16/24 03:47 30 100 07/16/24 03:39 07/16/24 03:31 07/16/24 03:31 07/16/24 03:21 07/16/24 03:15 07/16/24 03:00 07/16/24 03:00 07/16/24 03:00 07/16/24 02:30 07/16/24 02:30 07/16/24 02:30 07/16/24 02:09 07/16/24 01:39 07/16/24 01:30 07/16/24 01:30 Laboratory Results Short CBC 07/16/24 Range/Units 03:24 WBC 10.56 (4.8-10.8) K/ul Hgb 12.8 L (14.0-18.0) g/dl Hct 40.2 L (42.0-52.0) % Plt Count 382 (130-400) K/uL BMP 07/16/24 03:24 Sodium 133 L Potassium 4.5 Chloride 94 L Carbon Dioxide 33 H BUN 36 H Creatinine 1.11 Glucose 142 H Calcium 9.5 Medications Administered Current Inpatient Medications Acetaminophen (Acetaminophen 500 Mg Tab) 500 mg PO Q6H PRN PRN Reason: fever/pain Stop: 08/12/24 20:47 Atropine Sulfate (Atropine Sulfate 0.1 Mg/Ml 10ml Syr) 1 mg IV Q3M PRN PRN Reason: symptomatic bradycardia Stop: 08/09/24 22:32 Azithromycin 250 mg/ Dextrose 252.5 mls @ 125 mls/hr IV Q24H DEYA Stop: 07/16/24 16:00 Last Infusion: 07/15/24 17:26 Dose: Infused Pantoprazole Sodium 40 mg/ (Syringe) 10 mls @ 5 mls/min IV BID DEYA Stop: 08/09/24 20:59 Last Admin: 07/16/24 09:11 Dose: 5 mls/min Piperacillin Sod/Tazobactam Sod (Zosyn) 4.5 gm in 100 mls @ 25 mls/hr IV Q8H DEYA Stop: 07/22/24 20:59 Last Infusion: 07/16/24 10:00 Dose: Infused Methylprednisolone 250 mg/ (Dextrose) 104 mls @ 312 mls/hr IV Q6H DEYA Stop: 07/18/24 15:29 Last Infusion: 07/16/24 09:45 Dose: Infused Methylprednisolone 40 mg/ (Syringe) 0.64 mls @ 1.5 mls/min IV BID DEYA Stop: 08/17/24 20:59
[2024-07-16] MEDS: traMADol HCL 50 MG TABLET PO PRN (16:32)
[2024-07-16] MEDS: ACETAMINOPHEN 325 MG TAB PO PRN (16:33)
[2024-07-17 04:52] LABS: Hematocrit (blood only) 42.9 % (42.0-52.0); Hemoglobin 14.1 g/dl (14.0-18.0); Mean Corpuscular Hemoglobin 26.1 pg (25.0-34.0); Mean Corpuscular Hgb Conc 32.9 g/dL (32.0-36.0); Mean Corpuscular Volume 79.3 fL (80.0-100.0); Mean Platelet Volume 9.6 fL (9.4-12.4); Platelet Count 498 K/uL (130-400); RDW Coefficient of Variation 15.1 % (11.5-14.5); RDW Standard Deviation 42.5 fL (36.4-46.3); Red Blood Count 5.41 M/uL (4.70-6.10)
[2024-07-17 05:06] LABS: Albumin Level 2.9 gm/dl (3.4-5.0); BUN Creatinine Ratio 39.6 (10-20); Bilirubin Direct 1.3 mg/dl (0-0.2); Bilirubin,Total 2.6 mg/dl (0.2-1.0); Calcium 9.5 mg/dl (8.6-10.3); Creatinine Clr Calc Pharmacy 48.4 ml/min; Est GFR (African American) 60.1 ml/min; Est GFR (Non-African American) 51.8 ml/min; Magnesium 2.5 mg/dl (1.7-2.4); Phosphorus 3.7 mg/dl (2.5-4.9); Potassium 3.8 mmol/L (3.5-5.1); Total Protein 7.7 gm/dl (6.0-8.3)
[2024-07-17 05:21] LABS: Basophils # (auto) 0.03 K/uL (0.00-0.20); Basophils % (auto) 0.1 %; Immature Granulocytes # (auto) 0.18 K/uL (0.01-0.20); Immature Granulocytes % (auto) 0.9 %; Lymphocytes # (auto) 0.42 K/uL (1.20-3.40); Monocytes # (auto) 1.09 K/uL (0.11-0.59); Monocytes % (auto) 5.2 %; Neutrophils # (auto) 19.08 K/uL (1.40-6.50); Neutrophils % (auto) 91.8 %; Polychromasia 1+
--- NOTE | 2024-07-17 07:10 | XRay Report ---
XR chest 1V portable CLINICAL HISTORY: eval lung souza and pneumomediastinum COMPARISON STUDY: Chest radiograph July 16, 2024. FINDINGS: Pneumomediastinum has moderately increased. Soft tissue gas within neck has developed. A sm all right pneumothorax with superior pleural separation of 1.4 cm has developed. There is no left pne umothorax. Cardiomediastinal silhouette is stable. Interstitial thickening and bibasilar airspace opa cities persist. IMPRESSION: 1. Increase in pneumomediastinum with interval development of a small right pneumothorax and soft tis yevgeniy gas within the neck. Continued short-term radiographic follow-up is recommended. 2. Persistent interstitial thickening and bibasilar opacities. The findings favor interstitial lung d isease with superimposed multifocal pneumonia. ACT 112: Negative or not required by law. Electronically signed by: Fabian Medrano M.D. 07/17/2024 7:09 AM
--- NOTE | 2024-07-17 08:11 | Critical Care Progress Note ---
Date of Service July 17, 2024 Assessment & Plan (1) Acute hypoxic respiratory failure: (2) Idiopathic interstitial pneumonia: (3) Pneumomediastinum: (4) Thickening of esophagus: Plan Reason Critically Ill: 74-year-old male admitted to the hospital for hypoxic respiratory failure and spontaneous pneumomediastinum. He was found to be severely hypoxic and transferred to the ICU for further management Neuro - [facility] ICU: Negative Cardiac - -- Hypertension On amlodipine at home --Dyslipidemia On atorvastatin at home Respiratory - -- Acute hypoxic respiratory failure Likely secondary to acute exacerbation of underlying ILD -NSIP like pattern Autoimmune workup is still pending Respiratory BioFire negative for everything on 07/09/2024 Procalcitonin 0.17 BNP 168 at the time of presentation Currently getting 250 mg every 6 hours of Solu-Medrol for 3 days followed by 40 mg twice daily Continue pantoprazole twice daily --Spontaneous pneumomediastinum It is not uncommon to have spontaneous pneumo pneumomediastinum and patient with ILD with coughing fits Try to avoid positive pressure ventilation --Right-sided pneumothorax I think this is extension of the pneumomediastinum rather than a new right pneumothorax Continue to monitor --ILD Idiopathic interstitial pneumonia which is likely chronic Differential is broad including infectious as well as noninfectious Noninfectious includes chronic eosinophilic pneumonia given the subpleural groundglass opacities versus NSIP versus chronic aspiration and an atypical pattern of UIP/IPF. Infectious etiology include chronic atypical infection such as nontuberculous Mycobacterium The possibility of pulmonary malignancy is better but very low in differential GI - -- Thickening of esophagus Patient endorses a 30 pound weight loss with decreased appetite. Highly suspicious for possible malignancy. Protonix 40 mg twice daily. GI on board -- Transaminitis with hyperbilirubinemia mixed Elevation of alk phos along with ALT They have been trending down RENAL/LYTES - -- Monitor BUNs/creatinine Avoid nephrotoxic medication ENDO - ICU hypoglycemia protocol HEME - -- Normocytic anemia Monitor BUNs/creatinine ID - -- No clear source of infection Patient has completed a course of azithromycin Urine culture negative to date On Zosyn --Prophylaxis VTE: Heparin GI: Pantoprazole Lines: Peripheral Diet: N.p.o. Plan: In/out: Positive 431, urine output 285, -2.4 L since coming to the hospital Patient seems to have developed small right-sided pneumothorax I think this is just extension of underlying pneumomediastinum. Continue to avoid pressure ventilation Repeat chest x-ray in the afternoon. If there is any significant worsening in the pneumothorax then chest tube will be considered Continue with steroids Able to change guaifenesin DM to guaifenesin with codeine [id number]. Patient's urine output has significantly decreased. He seems to be volume constricted. I am going to give him 100 mL/h of Plasma-Lyte for total of 500 mL Overall prognosis of the patient is poor, I do not think intubating the patient will inappropriate and cause more suffering to the patient. This was explained to the patient and he understands that would not like intubation in future but would like to continue with the current care including CPR if need be I have personally spent 36 minutes of critical care time in the direct management of this patient. This is a life/limb threatening event. This includes time spent evaluating patient, direct bedside care, chart review, placing orders, interpretation of diagnostic studies, discussion with consultants, patient, and family members, as well as other required patient management activities. This time is exclusive of all separately billable procedures, and teaching time and separate from and in addition to any other critical care service time. Admission and Anticipated Discharge Date Admission Date: July 09, 2024 Subjective Patient seen and examined at bedside. No acute distress. No adverse events overnight His respiratory was in the high teens to low 20s. His saturation was 90-91% on 15 L, 95% high flow. Denied any headache, no nausea vomiting Still having occasional cough. Denied any chest pain Has been afebrile Review of Systems 2 Review of Systems: All systems reviewed & are unremarkable except as noted in Subjective Physical Exam 2 Physical Exam: Constitutional: No acute distress HEENT: EOMI, PERRLA, subcu emphysema appreciated around the left neck Respiratory system: Decreased air entry bilaterally, no wheeze, no rhonchi, positive Velcro-like crackles appreciated bilaterally CVS: S1-S2 positive, no murmurs or gallops Abdomen: Soft, nontender, nondistended, positive bowel sounds x4 Extremities: +2 pulses bilaterally radialis/ dorsalis pedis, no cyanosis, no edema Neuro: Awake alert oriented x3 Psych: Normal mood and affect G/U: Positive Ann Skin: no rashes, warm and dry Lymphatic: no cervical or axillary lymphadenopathy Results & Data Results & Data Vital Signs (Past 12 Hours) Vital Signs Pulse Pulse Resp BP Pulse Ox O2 Del Method O2 Flow Rate 07/17/24 05:00 59 L 24 91 07/17/24 04:11 68 18 93 High Flow Nasal Cannula 20 07/17/24 04:09 63 25 H 91 07/17/24 04:00 157/91 H 07/17/24 04:00 157/91 H 07/17/24 03:24 72 36 H 89 L 07/17/24 02:06 68 29 H 90 07/17/24 02:00 151/86 H 07/17/24 02:00 151/86 H 07/17/24 01:45 76 32 H 87 L 07/17/24 01:18 68 29 H 90 07/17/24 00:21 67 25 H 90 07/17/24 00:00 61 07/17/24 00:00 172/91 H 07/16/24 23:51 76 25 H 92 07/16/24 23:44 65 20 91 High Flow Nasal Cannula 20 07/16/24 23:12 64 6 L 89 L 07/16/24 22:09 63 19 89 L 07/16/24 22:00 130/74 07/16/24 21:57 61 17 90 07/16/24 21:03 59 L 14 91 07/16/24 21:00 129/76 07/16/24 20:57 61 21 92 07/16/24 20:09 59 L 16 95 07/16/24 20:01 124/70 07/16/24 20:01 124/70 07/16/24 20:01 20 95 High Flow Nasal Cannula 20 07/16/24 20:00 High Flow Nasal Cannula 30 FiO2 07/17/24 05:00 07/17/24 04:11 90 07/17/24 04:09 07/17/24 04:00 07/17/24 04:00 07/17/24 03:24 07/17/24 02:06 07/17/24 02:00 07/17/24 02:00 07/17/24 01:45 07/17/24 01:18 07/17/24 00:21 07/17/24 00:00 07/17/24 00:00 07/16/24 23:51 07/16/24 23:44 90 07/16/24 23:12 07/16/24 22:09 07/16/24 22:00 07/16/24 21:57 07/16/24 21:03 07/16/24 21:00 07/16/24 20:57 07/16/24 20:09 07/16/24 20:01 07/16/24 20:01 07/16/24 20:01 85 07/16/24 20:00 85 Laboratory Results 07/17/24 04:21 07/17/24 04:21 Coding Level of Care Code 23673 CRITICAL CARE 1ST 30-74M Diagnoses Acute hypoxic respiratory failure J96.01 Idiopathic interstitial pneumonia J84.111 Pneumomediastinum J98.2 Thickening of esophagus K22.89
[2024-07-17] MEDS: HEPARIN SOD 5,000 UNIT/0.5 ML VIAL SQ SCH (11:27)
--- NOTE | 2024-07-17 13:19 | XRay Report ---
XR chest 1V portable CLINICAL HISTORY: f/u COMPARISON STUDY: Chest radiograph performed earlier today. FINDINGS: Pneumomediastinum and subcutaneous gas within neck are similar to prior exam. A small right pneumothorax is also similar to prior exam. Cardiomediastinal silhouette is stable. There are small bilateral pleural effusions. Interstitial thickening and bibasilar opacities persist. IMPRESSION: 1. No change in pneumomediastinum, subcutaneous gas within the neck and a small right pneumothorax si nce prior chest radiograph. 2. Interstitial thickening and lower lung opacities, similar to prior exam. The findings favor inters titial lung disease with superimposed pneumonia. ACT 112: Negative or not required by law. Electronically signed by: Fabian Medrano M.D. 07/17/2024 1:17 PM
--- NOTE | 2024-07-17 13:54 | Hospitalist Progress Note ---
Date of Service July 17, 2024 Assessment & Plan (1) Diffuse interstitial pulmonary fibrosis: Plan: Presented with increasing shortness of breath and now has acute hypoxic respiratory failure Secondary to idiopathic interstitial pulmonary fibrosis with interstitial pneumonia Negative BioFire on admission Complicated by pneumomediastinum Appreciate pulmonary input and recommendation Has been on intravenous Solu-Medrol, antibiotics, nebulized bronchodilator and oxygen Awaiting further serological test High risk of any anesthesia or lung biopsy and any procedure Condition deteriorated and he was transferred to ICU for continued care Clinically little better in ICUwill continue current management Not any better today and is still complains to have shortness of breath and minimal chest pain involving the center of the chest Continue with current management and the patient may need intubation down the line Clinically not any better and the patient is 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 Will continue current management Pneumomediastinum Spontaneous likely secondary to cough Denies any pain or any other significant symptoms at rest Without any esophageal injury or leak Chest x-ray did show persistence of pneumomediastinum without any change If requires intubation will need no PEEP and/or decreasing PEEP Chest x-ray showed possible increasing pneumomediastinum with a small pneumothorax on the left (2) Acute hypoxic respiratory failure: (3) Esophageal abnormality: Plan: Has been complaining of problems with swallowing for at least 4 to 6 weeks Significant weight loss of about 30 pounds for a long time with decreased appetite Appreciate GI input and recommendation He has been tolerating liquid diet Plan for possible EGD when pulmonary status is improved Has been tolerating liquid diet without any problem May need EGD to evaluate esophageal lesions further He has been tolerating liquid diet without any problem of dysphagia or odynophagia Denies any problem with swallowing liquid diet (4) Idiopathic interstitial pneumonia: Plan: Will continue with the current antibiotic team's (5) Pneumomediastinum: (6) Transaminitis: Plan: Hepatitis panel has been negative Ultrasound did not show gallstones and sludge without any evidence of cholecy stitis Will monitor LFTs for now LFTs are improving-will check repeat LFT tomorrow 7.1 cm cystic focus is seen between the liver and the right kidney Will get an abdominal CT scan with improvement of her general condition (7) Cholelithiasis: (8) HTN (hypertension): Plan Note from prior hospitalist: Patient with acute hypoxic respiratory failure due to idiopathic interstitial pneumonitis with evidence of pneumomediastinum on CT at the time of admission. Unclear etiology of pneumomediastinum and consider possible small bleb rupture versus possible air from esophagus with evidence of esophageal thickening on CT. Communication with GI and pulmonary team today. Continue oxygen support, continue steroids. GI and pulmonary to coordinate potential EGD and bronchoscopy when patient's respiratory status slightly more stable and improved. Anticipate patient may need intubation and mechanical ventilation with these procedures. Continue steroids Continue to titrate oxygen as able Continue antitussives Care management to coordinate return to assisted or alternate level of care when GI and pulmonary procedures completed and patient improved 51 minutes, coordinating care, review of records, care at the bedside Admission and Anticipated Discharge Date Admission Date: July 09, 2024 Subjective 07/14/2024 The patient was seen and examined in telemetry unit He has been complaining of increasing shortness of breath with cough and phlegm and also problem with swallowing for the last 4 to 6 weeks Still requiring 15 L oxygen via high flow nasal cannula to maintain saturation He has been tolerating liquid diet Showing a little improvement since admission 07/15/2024 The patient was seen and examined in ICU This condition did not improve and was having more shortness of breath with desaturation and he was transferred to ICU for continued care Has been feeling little better in ICU Denies any significant symptoms at rest but has shortness of breath 07/16/2024 Patient was seen and examined in ICU He has not been any better and is still complains of shortness of breath and some chest pain/tightness Still requiring high flow oxygen with FiO2 of 95% 25 L/min No fever no chills and denies any nausea and/or vomiting 07/17/2024 The patient was seen and examined in ICU His condition has been deteriorating Increasing shortness of breath and cough Remains very weak and lethargic He has been made DNI Review of Systems Review of Systems: All systems reviewed and are unremarkable except as noted below Physical Exam Physical Exam: Lying in bed with acute distress due to shortness of breath Constitutional: + ill appearing and average body habitus Eyes: PERRL, conjunctivae normal, anicteric sclerae ENMT: external ear and nose normal, oropharynx normal Neck: trachea midline, no thyromegaly Respiratory: + respiratory distress Auscultation: + diminished lung sounds, + crackles (Bilateral crackles) and + wheezes (Occasional wheezing bilaterally) Cardiovascular: Rate/Rhythm: regular rate and regular rhythm; not tachycardic Heart Sounds: normal S1 and normal S2; no murmur Extremities: no edema Gastrointestinal (Abdomen): Inspection/Auscultation: normal bowel sounds; abdomen not distended Percussion/Palpation: abdomen soft; abdomen nontender Neurologic: normal touch/pain/proprioception and moves all extremities; no focal motor deficits Psychiatric: A+Ox3, euthymic affect Lymphatic: no cervical or axillary lymphadenopathy Results & Data Results & Data Vital Signs (Past 12 Hours) Vital Signs Pulse Pulse Resp BP Pulse Ox O2 Del Method O2 Flow Rate 07/17/24 11:27 66 24 90 High Flow Nasal Cannula 20 07/17/24 09:33 62 21 90 07/17/24 09:06 64 27 H 89 L 07/17/24 08:30 60 17 92 07/17/24 08:06 62 20 90 07/17/24 08:00 121/70 07/17/24 08:00 121/70 07/17/24 07:57 63 21 92 07/17/24 07:39 60 24 91 07/17/24 07:35 67 22 89 L High Flow Nasal Cannula 15 07/17/24 07:12 60 17 90 07/17/24 06:42 54 L 15 92 07/17/24 06:15 65 24 89 L 07/17/24 06:00 169/94 H 07/17/24 05:57 69 30 H 90 07/17/24 05:30 56 L 16 91 07/17/24 05:00 140/81 07/17/24 05:00 59 L 24 91 07/17/24 04:11 68 18 93 High Flow Nasal Cannula 20 07/17/24 04:09 63 25 H 91 07/17/24 04:00 157/91 H 07/17/24 04:00 157/91 H 07/17/24 03:24 72 36 H 89 L 07/17/24 02:06 68 29 H 90 07/17/24 02:00 151/86 H 07/17/24 02:00 151/86 H FiO2 07/17/24 11:27 100 07/17/24 09:33 07/17/24 09:06 07/17/24 08:30 07/17/24 08:06 07/17/24 08:00 07/17/24 08:00 07/17/24 07:57 07/17/24 07:39 07/17/24 07:35 90 07/17/24 07:12 07/17/24 06:42 07/17/24 06:15 07/17/24 06:00 07/17/24 05:57 07/17/24 05:30 07/17/24 05:00 07/17/24 05:00 07/17/24 04:11 90 07/17/24 04:09 07/17/24 04:00 07/17/24 04:00 07/17/24 03:24 07/17/24 02:06 07/17/24 02:00 07/17/24 02:00 Laboratory Results Short CBC 07/17/24 Range/Units 04:21 WBC 20.80 H (4.8-10.8) K/ul Hgb 14.1 (14.0-18.0) g/dl Hct 42.9 (42.0-52.0) % Plt Count 498 H (130-400) K/uL BMP 07/17/24 04:21 Sodium 133 L Potassium 3.8 Chloride 95 L Carbon Dioxide 31 BUN 53 H Creatinine 1.34 Glucose 170 H Calcium 9.5 Liver Function 07/17/24 Range/Units 04:21 Total Bilirubin 2.6 H (0.2-1.0) mg/dl Direct Bilirubin 1.3 H (0-0.2) mg/dl AST 25 (13-39) U/L ALT 69 H (7-52) U/L Alkaline Phosphatase 145 H (34-104) U/L Albumin 2.9 L (3.4-5.0) gm/dl Medications Administered Current Inpatient Medications Acetaminophen (Acetaminophen 325 Mg Tab) 650 mg PO Q8H PRN PRN Reason: Mild Pain (Scale 1, 2, 3) Stop: 08/15/24 16:00 Last Admin: 07/17/24 11:26 Dose: 650 mg Atropine Sulfate (Atropine Sulfate 0.1 Mg/Ml 10ml Syr) 1 mg IV Q3M PRN PRN Reason: symptomatic bradycardia Stop: 08/09/24 22:32 Guaifenesin/Codeine Phosphate (Guaifenesin/Codeine 200mg/20mg 10ml Udc) 10 ml PO Q8 PRN PRN Reason: Cough Stop: 08/16/24 08:43 Heparin Sodium (Porcine) (Heparin Sod 5,000 Unit/0.5 Ml Vial) 5,000 units SQ Q12 [facility] Stop: 08/16/24 08:59 Last Admin: 07/17/24 11:27 Dose: 5,000 units Pantoprazole Sodium 40 mg/ (Syringe) 10 mls @ 5 mls/min IV BID DEYA Stop: 08/09/24 20:59 Last Admin: 07/17/24 11:27 Dose: 5 mls/min Piperacillin Sod/Tazobactam Sod (Zosyn) 4.5 gm in 100 mls @ 25 mls/hr IV Q8H [facility] Stop: 07/22/24 20:59 Last Admin: 07/17/24 05:41 Dose: 25 mls/hr Methylprednisolone 250 mg/ (Dextrose) 104 mls @ 312 mls/hr IV Q6H [facility] Stop: 07/18/24 15:29 Last Admin: 07/17/24 11:29 Dose: 312 mls/hr Methylprednisolone 40 mg/ (Syringe) 0.64 mls @ 1.5 mls/min IV BID [facility] Stop: 08/17/24 20:59 Phenazopyridine HCl (Phenazopyridine Hcl 200 Mg Tab) 200 mg PO TID PRN PRN Reason: Dysuria Stop: 08/16/24 12:24 Tramadol HCl (Tramadol Hcl 50 Mg Tablet) 50 mg PO Q8H PRN PRN Reason: Pain Stop: 08/15/24 16:01 Last Admin: 07/17/24 11:26 Dose: 50 mg
[2024-07-17] MEDS: PHENAZOPYRIDINE HCL 200 MG TAB PO PRN (18:09)
[2024-07-18 04:58] LABS: Hematocrit (blood only) 41.1 % (42.0-52.0); Hemoglobin 13.5 g/dl (14.0-18.0); Mean Corpuscular Hemoglobin 26.1 pg (25.0-34.0); Mean Corpuscular Hgb Conc 32.8 g/dL (32.0-36.0); Mean Corpuscular Volume 79.5 fL (80.0-100.0); Mean Platelet Volume 9.3 fL (9.4-12.4); Platelet Count 434 K/uL (130-400); RDW Coefficient of Variation 15.2 % (11.5-14.5); RDW Standard Deviation 42.8 fL (36.4-46.3); Red Blood Count 5.17 M/uL (4.70-6.10); White Blood Count 16.46 K/ul (4.8-10.8)
[2024-07-18 05:09] LABS: BUN Creatinine Ratio 56.4 (10-20); Calcium 9.3 mg/dl (8.6-10.3); Creatinine Clr Calc Pharmacy 55.4 ml/min; Est GFR (African American) 70.8 ml/min; Est GFR (Non-African American) 61.1 ml/min; Magnesium 2.7 mg/dl (1.7-2.4); Phosphorus 3.9 mg/dl (2.5-4.9); Potassium 3.6 mmol/L (3.5-5.1)
[2024-07-18 05:25] LABS: Basophils # (auto) 0.01 K/uL (0.00-0.20); Basophils % (auto) 0.1 %; Immature Granulocytes # (auto) 0.14 K/uL (0.01-0.20); Immature Granulocytes % (auto) 0.9 %; Lymphocytes # (auto) 0.48 K/uL (1.20-3.40); Lymphocytes % (auto) 2.9 %; Monocytes # (auto) 0.89 K/uL (0.11-0.59); Monocytes % (auto) 5.4 %; Neutrophils # (auto) 14.94 K/uL (1.40-6.50); Neutrophils % (auto) 90.7 %
--- NOTE | 2024-07-18 07:07 | XRay Report ---
XR chest 1V portable CLINICAL HISTORY: eval pneumomediastinum and poss small right pneumo COMPARISON STUDY: Chest radiograph July 17, 2024 at 1:00 PM. FINDINGS: Pneumomediastinum has decreased in amount. A small right pneumothorax has decreased in size . Superior pleural separation is 1.2 cm. Soft tissue gas within neck persists. Interstitial thickenin g and bibasilar opacities are again noted. Cardiomediastinal silhouette is stable. IMPRESSION: 1. Decrease in pneumomediastinum and decrease in size of a small right pneumothorax. Persistent soft tissue gas within the neck. 2. No change in interstitial thickening and bibasilar opacities. ACT 112: Negative or not required by law. Electronically signed by: Fabian Medrano M.D. 07/18/2024 7:05 AM
--- NOTE | 2024-07-18 08:11 | Pulmonology Progress Note ---
Date of Service July 18, 2024 Assessment & Plan (1) Acute hypoxic respiratory failure: (2) Idiopathic interstitial pneumonia: (3) Pneumomediastinum: (4) Thickening of esophagus: Plan Reason Critically Ill: 74-year-old male admitted to the hospital for hypoxic respiratory failure and spontaneous pneumomediastinum. He was found to be severely hypoxic and transferred to the ICU for further management Neuro - [facility] ICU: Negative Cardiac - -- Hypertension On amlodipine at home --Dyslipidemia On atorvastatin at home Respiratory - -- Acute hypoxic respiratory failure Likely secondary to acute exacerbation of underlying ILD -NSIP like pattern Autoimmune workup is still pending Respiratory BioFire negative for everything on 07/09/2024 Procalcitonin 0.17 BNP 168 at the time of presentation Currently getting 250 mg every 6 hours of Solu-Medrol for 3 days followed by 40 mg twice daily Continue pantoprazole twice daily --Spontaneous pneumomediastinum It is not uncommon to have spontaneous pneumo pneumomediastinum and patient with ILD with coughing fits Try to avoid positive pressure ventilation --Right-sided pneumothorax I think this is extension of the pneumomediastinum rather than a new right pneumothorax Continue to monitor --ILD Idiopathic interstitial pneumonia which is likely chronic Differential is broad including infectious as well as noninfectious Noninfectious includes chronic eosinophilic pneumonia given the subpleural groundglass opacities versus NSIP versus chronic aspiration and an atypical pattern of UIP/IPF. Infectious etiology include chronic atypical infection such as nontuberculous Mycobacterium The possibility of pulmonary malignancy is better but very low in differential GI - -- Thickening of esophagus Patient endorses a 30 pound weight loss with decreased appetite. Highly suspicious for possible malignancy. Protonix 40 mg twice daily. GI on board -- Transaminitis with hyperbilirubinemia mixed Elevation of alk phos along with ALT They have been trending down RENAL/LYTES - -- Monitor BUNs/creatinine Avoid nephrotoxic medication ENDO - ICU hypoglycemia protocol HEME - -- Normocytic anemia Monitor BUNs/creatinine ID - -- No clear source of infection Patient has completed a course of azithromycin Urine culture negative to date On Zosyn --DNI --Prophylaxis VTE: Heparin GI: Pantoprazole Lines: Peripheral Diet: Clear liquid Plan: In/out: +66 mL, urine output 950 mL, -2.4 L since coming to the hospital X-ray from today does not show any significant change compared to yesterday, if anything there is mild decrease in the size of the right pneumothorax. Continue with guaifenesin/codeine [id number]. Potassium being replaced Overall prognosis of the patient is poor, I do not think intubating the patient will inappropriate and cause more suffering to the patient. I have personally spent 32 minutes of critical care time in the direct management of this patient. This is a life/limb threatening event. This includes time spent evaluating patient, direct bedside care, chart review, placing orders, interpretation of diagnostic studies, discussion with consultants, patient, and family members, as well as other required patient management activities. This time is exclusive of all separately billable procedures, and teaching time and separate from and in addition to any other critical care service time. Admission and Anticipated Discharge Date Admission Date: July 09, 2024 Subjective Patient seen and examined at bedside. No acute distress, no adverse events overnight Patient was saturating 89-90% on 20 L, 100% high flow Denied any chest pain. He still complaining of cough, not bringing up any phlegm Able to tolerate diet right now. Denied any headache No nausea or vomiting Review of Systems 2 Review of Systems: All systems reviewed & are unremarkable except as noted in Subjective Physical Exam 2 Physical Exam: Constitutional: No acute distress HEENT: EOMI, PERRLA, subcu emphysema appreciated around the left neck Respiratory system: Decreased air entry bilaterally, no wheeze, no rhonchi, positive Velcro-like crackles appreciated bilaterally CVS: S1-S2 positive, no murmurs or gallops Abdomen: Soft, nontender, nondistended, positive bowel sounds x4 Extremities: +2 pulses bilaterally radialis/ dorsalis pedis, no cyanosis, no edema Neuro: Awake alert oriented x3 Psych: Normal mood and affect G/U: No Ann Skin: no rashes, warm and dry Lymphatic: no cervical or axillary lymphadenopathy Results & Data Results & Data Vital Signs (Past 12 Hours) Vital Signs Pulse Pulse Resp BP Pulse Ox O2 Del Method O2 Flow Rate 07/18/24 07:14 71 22 84 L High Flow Nasal Cannula 20 07/18/24 06:18 55 L 21 88 L 07/18/24 06:00 134/85 07/18/24 05:57 53 L 19 90 07/18/24 05:00 50 L 23 90 07/18/24 04:00 140/81 07/18/24 04:00 140/81 07/18/24 04:00 140/81 07/18/24 04:00 56 L 22 88 L 07/18/24 03:38 62 20 92 High Flow Nasal Cannula 20 07/18/24 03:00 137/77 07/18/24 03:00 137/77 07/18/24 03:00 137/77 07/18/24 03:00 54 L 18 90 07/18/24 02:00 54 L 12 92 07/18/24 02:00 129/75 07/18/24 02:00 129/75 07/18/24 02:00 129/75 07/18/24 02:00 129/75 07/18/24 01:00 57 L 12 89 L 07/18/24 00:05 58 L 18 91 High Flow Nasal Cannula 20 07/18/24 00:00 163/91 H 07/18/24 00:00 163/91 H 07/18/24 00:00 61 14 93 07/18/24 00:00 54 L 07/17/24 23:00 131/77 07/17/24 23:00 61 22 89 L 07/17/24 22:06 61 14 91 07/17/24 22:00 145/82 H 07/17/24 21:48 64 4 L 90 07/17/24 21:06 64 15 93 07/17/24 21:00 134/82 07/17/24 20:57 32 H 90 07/17/24 20:12 111 H 26 H 89 L FiO2 07/18/24 07:14 90 07/18/24 06:18 07/18/24 06:00 07/18/24 05:57 07/18/24 05:00 07/18/24 04:00 07/18/24 04:00 07/18/24 04:00 07/18/24 04:00 07/18/24 03:38 90 07/18/24 03:00 07/18/24 03:00 07/18/24 03:00 07/18/24 03:00 07/18/24 02:00 07/18/24 02:00 07/18/24 02:00 07/18/24 02:00 07/18/24 02:00 07/18/24 01:00 07/18/24 00:05 90 07/18/24 00:00 07/18/24 00:00 07/18/24 00:00 07/18/24 00:00 07/17/24 23:00 07/17/24 23:00 07/17/24 22:06 07/17/24 22:00 07/17/24 21:48 07/17/24 21:06 07/17/24 21:00 07/17/24 20:57 07/17/24 20:12 Laboratory Results 07/18/24 04:43 07/18/24 04:42 PG Care Time/CCT Total # of Minutes Spent Total Time Spent with Patient: Total time spent is greater than 50% in coordination of care (as documented) at patient's floor/unit and/or counseling patient: Coding Level of Care Code 43953 CRITICAL CARE 1ST 30-74M Diagnoses Acute hypoxic respiratory failure J96.01 Idiopathic interstitial pneumonia J84.111 Pneumomediastinum J98.2 Thickening of esophagus K22.89
[2024-07-18] MEDS: POTASSIUM CHLORIDE / WTR 10 MEQ/100 ML PLCT IV SCH (09:08)
--- NOTE | 2024-07-18 13:24 | Hospitalist Progress Note ---
Date of Service July 18, 2024 Assessment & Plan (1) Diffuse interstitial pulmonary fibrosis: Plan: Presented with increasing shortness of breath and now has acute hypoxic respiratory failure Secondary to idiopathic interstitial pulmonary fibrosis with interstitial pneumonia Negative BioFire on admission Complicated by pneumomediastinum Appreciate pulmonary input and recommendation Has been on intravenous Solu-Medrol, antibiotics, nebulized bronchodilator and oxygen Awaiting further serological test High risk of any anesthesia or lung biopsy and any procedure Condition deteriorated and he was transferred to ICU for continued care Clinically little better in ICUwill continue current management Not any better today and is still complains to have shortness of breath and minimal chest pain involving the center of the chest Continue with current management and the patient may need intubation down the line Clinically not any better and the patient is made DNI by the rail car loader Will continue current management His condition remains stable for the last 48 hours Has been showing minimal improvement Will continue current management as per the rail car loader He will be downgraded to telemetry status Pneumomediastinum Spontaneous likely secondary to cough Denies any pain or any other significant symptoms at rest Without any esophageal injury or leak Chest x-ray did show persistence of pneumomediastinum without any change If requires intubation will need no PEEP and/or decreasing PEEP Chest x-ray showed possible increasing pneumomediastinum with a small pneumothorax on the left Repeat chest x-ray showing some improvement of the pneumomediastinum and pneumothorax (2) Acute hypoxic respiratory failure: (3) Esophageal abnormality: Plan: Has been complaining of problems with swallowing for at least 4 to 6 weeks Significant weight loss of about 30 pounds for a long time with decreased appetite Appreciate GI input and recommendation He has been tolerating liquid diet Plan for possible EGD when pulmonary status is improved Has been tolerating liquid diet without any problem May need EGD to evaluate esophageal lesions further He has been tolerating liquid diet without any problem of dysphagia or odynophagia Denies any problem with swallowing liquid diet (4) Idiopathic interstitial pneumonia: Plan: Will continue with the current antibiotic team's (5) Pneumomediastinum: (6) Transaminitis: Plan: Hepatitis panel has been negative Ultrasound did not show gallstones and sludge without any evidence of cholecystitis Will monitor LFTs for now LFTs are improving-will check repeat LFT tomorrow LFTs are better 7.1 cm cystic focus is seen between the liver and the right kidney Will get an abdominal CT scan with improvement of her general condition (7) Cholelithiasis: (8) HTN (hypertension): Plan Note from prior hospitalist: Patient with acute hypoxic respiratory failure due to idiopathic interstitial pneumonitis with evidence of pneumomediastinum on CT at the time of admission. Unclear etiology of pneumomediastinum and consider possible small bleb rupture versus possible air from esophagus with evidence of esophageal thickening on CT. Communication with GI and pulmonary team today. Continue oxygen support, continue steroids. GI and pulmonary to coordinate potential EGD and bronchoscopy when patient's respiratory status slightly more stable and improved. Anticipate patient may need intubation and mechanical ventilation with these procedures. Continue steroids Continue to titrate oxygen as able Continue antitussives Care management to coordinate return to [facility] or alternate level of care when GI and pulmonary procedures completed and patient improved 51 minutes, coordinating care, review of records, care at the bedside Admission and Anticipated Discharge Date Admission Date: July 09, 2024 Subjective 07/14/2024 The patient was seen and examined in telemetry unit He has been complaining of increasing shortness of breath with cough and phlegm and also problem with swallowing for the last 4 to 6 weeks Still requiring 15 L oxygen via high flow nasal cannula to maintain saturation He has been tolerating liquid diet Showing a little improvement since admission 07/15/2024 The patient was seen and examined in ICU This condition did not improve and was having more shortness of breath with desaturation and he was transferred to ICU for continued care Has been feeling little better in ICU Denies any significant symptoms at rest but has shortness of breath 07/16/2024 Patient was seen and examined in ICU He has not been any better and is still complains of shortness of breath and some chest pain/tightness Still requiring high flow oxygen with FiO2 of 95% 25 L/min No fever no chills and denies any nausea and/or vomiting 07/17/2024 The patient was seen and examined in ICU His condition has been deteriorating Increasing shortness of breath and cough Remains very weak and lethargic He has been made DNI 07/18/2024 The patient was seen and examined in the ICU His condition has not improved though the chest x-ray is showing some improvement He has been stable for the last few days He will be downgraded to telemetry status Review of Systems Review of Systems: All systems reviewed and are unremarkable except as noted below Physical Exam Physical Exam: Lying in bed with acute distress due to shortness of breath Constitutional: + ill appearing and average body habitus Eyes: PERRL, conjunctivae normal, anicteric sclerae ENMT: external ear and nose normal, oropharynx normal Neck: trachea midline, no thyromegaly Respiratory: + respiratory distress Auscultation: + diminished lung sounds, + crackles (Bilateral crackles) and + wheezes (Occasional wheezing bilaterally) Cardiovascular: Rate/Rhythm: regular rate and regular rhythm; not tachycardic Heart Sounds: normal S1 and normal S2; no murmur Extremities: no edema Gastrointestinal (Abdomen): Inspection/Auscultation: normal bowel sounds; abdomen not distended Percussion/Palpation: abdomen soft; abdomen nontender Neurologic: normal touch/pain/proprioception and moves all extremities; no focal motor deficits Psychiatric: A+Ox3, euthymic affect Lymphatic: no cervical or axillary lymphadenopathy Results & Data Results & Data Vital Signs (Past 12 Hours) Vital Signs Pulse Pulse Resp BP Pulse Ox O2 Del Method O2 Flow Rate 07/18/24 11:18 66 26 H 93 High Flow Nasal Cannula 07/18/24 09:00 60 25 H 88 L 07/18/24 09:00 150/80 H 07/18/24 09:00 150/80 H 07/18/24 08:03 94 H 28 H 83 L 07/18/24 08:00 121/74 07/18/24 08:00 121/74 07/18/24 08:00 61 07/18/24 07:51 57 L 22 89 L 07/18/24 07:33 80 23 86 L 07/18/24 07:30 High Flow Nasal Cannula 07/18/24 07:18 53 L 24 89 L 07/18/24 07:14 71 22 84 L High Flow Nasal Cannula 07/18/24 07:00 52 L 23 88 L 07/18/24 07:00 128/74 07/18/24 07:00 128/74 07/18/24 06:48 63 20 86 L 07/18/24 06:33 54 L 27 H 89 L 07/18/24 06:18 55 L 21 88 L 07/18/24 06:00 134/85 07/18/24 05:57 53 L 19 90 07/18/24 05:00 50 L 23 90 07/18/24 04:00 140/81 07/18/24 04:00 140/81 07/18/24 04:00 140/81 07/18/24 04:00 56 L 22 88 L 07/18/24 03:38 62 20 92 High Flow Nasal Cannula 20 07/18/24 03:00 137/77 07/18/24 03:00 137/77 07/18/24 03:00 137/77 07/18/24 03:00 54 L 18 90 07/18/24 02:00 54 L 12 92 07/18/24 02:00 129/75 07/18/24 02:00 129/75 07/18/24 02:00 129/75 07/18/24 02:00 129/75 FiO2 07/18/24 11:18 100 07/18/24 09:00 07/18/24 09:00 07/18/24 09:00 07/18/24 08:03 07/18/24 08:00 07/18/24 08:00 07/18/24 08:00 07/18/24 07:51 07/18/24 07:33 07/18/24 07:30 07/18/24 07:18 07/18/24 07:14 90 07/18/24 07:00 07/18/24 07:00 07/18/24 07:00 07/18/24 06:48 07/18/24 06:33 07/18/24 06:18 07/18/24 06:00 07/18/24 05:57 07/18/24 05:00 07/18/24 04:00 07/18/24 04:00 07/18/24 04:00 07/18/24 04:00 07/18/24 03:38 90 07/18/24 03:00 07/18/24 03:00 07/18/24 03:00 07/18/24 03:00 07/18/24 02:00 07/18/24 02:00 07/18/24 02:00 07/18/24 02:00 07/18/24 02:00 Laboratory Results Short CBC 07/18/24 Range/Units 04:43 WBC 16.46 H (4.8-10.8) K/ul Hgb 13.5 L (14.0-18.0) g/dl Hct 41.1 L (42.0-52.0) % Plt Count 434 H (130-400) K/uL BMP 07/18/24 04:42 Sodium 133 L Potassium 3.6 Chloride 96 L Carbon Dioxide 32 BUN 66 H Creatinine 1.17 Glucose 169 H Calcium 9.3 Medications Administered Current Inpatient Medications Acetaminophen (Acetaminophen 325 Mg Tab) 650 mg PO Q8H PRN PRN Reason: Mild Pain (Scale 1, 2, 3) Stop: 08/15/24 16:00 Last Admin: 07/18/24 09:07 Dose: 650 mg Atropine Sulfate (Atropine Sulfate 0.1 Mg/Ml 10ml Syr) 1 mg IV Q3M PRN PRN Reason: symptomatic bradycardia Stop: 08/09/24 22:32 Guaifenesin/Codeine Phosphate (Guaifenesin/Codeine 200mg/20mg 10ml Udc) 10 ml PO Q8H [facility] Stop: 08/16/24 18:44 Last Admin: 07/18/24 12:14 Dose: 10 ml Heparin Sodium (Porcine) (Heparin Sod 5,000 Unit/0.5 Ml Vial) 5,000 units SQ Q12 [facility] Stop: 08/16/24 08:59 Last Admin: 07/18/24 09:08 Dose: 5,000 units Pantoprazole Sodium 40 mg/ (Syringe) 10 mls @ 5 mls/min IV BID [facility] Stop: 08/09/24 20:59 Last Admin: 07/18/24 09:08 Dose: 5 mls/min Piperacillin Sod/Tazobactam Sod (Zosyn) 4.5 gm in 100 mls @ 25 mls/hr IV Q8H [facility] Stop: 07/22/24 20:59 Last Infusion: 07/18/24 08:56 Dose: Infused Methylprednisolone 250 mg/ (Dextrose) 104 mls @ 312 mls/hr IV Q6H [facility] Stop: 07/18/24 15:29 Last Infusion: 07/18/24 12:11 Dose: Infused Methylprednisolone 40 mg/ (Syringe) 0.64 mls @ 1.5 mls/min IV BID [facility] Stop: 08/17/24 20:59 Phenazopyridine HCl (Phenazopyridine Hcl 200 Mg Tab) 200 mg PO TID PRN PRN Reason: Dysuria Stop: 08/16/24 12:24 Last Admin: 07/17/24 18:09 Dose: 200 mg Tramadol HCl (Tramadol Hcl 50 Mg Tablet) 50 mg PO Q8H PRN PRN Reason: Pain Stop: 08/15/24 16:01 Last Admin: 07/18/24 09:06 Dose: 50 mg
[2024-07-18] MEDS: methylPREDNISolone 40 MG in SYRINGE 0 ML IV SCH (20:09)
--- NOTE | 2024-07-19 08:04 | XRay Report ---
XR chest 1V portable HISTORY: eval pneumomediastinum and poss small right pnuemo COMPARISON: Chest 07/18/2024. FINDINGS: Pneumomediastinum and the small right apical pneumothorax persists. The right pneumothorax demonstrates a maximal pleural gap of 10 mm. This is similar to the prior study. There are low lung v olumes. Subcutaneous emphysema seen within the right chest wall and neck. The heart remains mildly en larged. Patchy bibasilar densities persist. Peripheral densities within the right midlung zone are al so unchanged. IMPRESSION: 1. No significant change in the pneumomediastinum and small right pneumothorax. 2. Bibasilar densities persist. ACT 112: Negative or not required by law. Electronically signed by: Duran Brandt M.D. 07/19/2024 8:02 AM
[2024-07-19 08:15] LABS: Basophils # (auto) 0.02 K/uL (0.00-0.20); Basophils % (auto) 0.1 %; Eosinophils # (auto) 0.01 K/uL (0.00-0.50); Eosinophils % (auto) 0.1 %; Hematocrit (blood only) 43.3 % (42.0-52.0); Hemoglobin 13.4 g/dl (14.0-18.0); Immature Granulocytes # (auto) 0.13 K/uL (0.01-0.20); Immature Granulocytes % (auto) 0.8 %; Mean Corpuscular Hemoglobin 25.5 pg (25.0-34.0); Mean Corpuscular Hgb Conc 30.9 g/dL (32.0-36.0); Mean Corpuscular Volume 82.5 fL (80.0-100.0); Mean Platelet Volume 9.5 fL (9.4-12.4); Monocytes # (auto) 1.59 K/uL (0.11-0.59); Neutrophils # (auto) 13.36 K/uL (1.40-6.50); Platelet Count 386 K/uL (130-400); RDW Coefficient of Variation 15.2 % (11.5-14.5); RDW Standard Deviation 44.8 fL (36.4-46.3); Red Blood Count 5.25 M/uL (4.70-6.10); White Blood Count 15.91 K/ul (4.8-10.8)
[2024-07-19 08:36] LABS: BUN Creatinine Ratio 50.9 (10-20); Calcium 9.1 mg/dl (8.6-10.3); Creatinine Clr Calc Pharmacy 55.9 ml/min; Est GFR (African American) 71.5 ml/min; Est GFR (Non-African American) 61.7 ml/min; Magnesium 2.7 mg/dl (1.7-2.4); Phosphorus 2.8 mg/dl (2.5-4.9); Potassium 3.3 mmol/L (3.5-5.1)
--- NOTE | 2024-07-19 11:55 | Hospitalist Progress Note ---
Date of Service July 19, 2024 Assessment & Plan (1) Diffuse interstitial pulmonary fibrosis: Plan: Presented with increasing shortness of breath and now has acute hypoxic respiratory failure Secondary to idiopathic interstitial pulmonary fibrosis with interstitial pneumonia Negative BioFire on admission Complicated by pneumomediastinum Appreciate pulmonary input and recommendation Has been on intravenous Solu-Medrol, antibiotics, nebulized bronchodilator and oxygen Awaiting further serological test High risk of any anesthesia or lung biopsy and any procedure Condition deteriorated and he was transferred to ICU for continued care Clinically little better in ICUwill continue current management Not any better today and is still complains to have shortness of breath and minimal chest pain involving the center of the chest Continue with current management and the patient may need intubation down the line Clinically not any better and the patient is made DNI by the egg worker Will continue current management His condition remains stable for the last 48 hours Has been showing minimal improvement Will continue current management as per the egg worker He will be downgraded to telemetry status Remains stable but criticalcontinue current management Prognosis remains very poor Pneumomediastinum Spontaneous likely secondary to cough Denies any pain or any other significant symptoms at rest Without any esophageal injury or leak Chest x-ray did show persistence of pneumomediastinum without any change If requires intubation will need no PEEP and/or decreasing PEEP Chest x-ray showed possible increasing pneumomediastinum with a small pneumot horax on the left Repeat chest x-ray showing some improvement of the pneumomediastinum and pneumothorax Repeat chest x-ray today showed no significant change with the pneumomediastinum and pneumothorax and the bibasilar densities persist (2) Acute hypoxic respiratory failure: (3) Esophageal abnormality: Plan: Has been complaining of problems with swallowing for at least 4 to 6 weeks Significant weight loss of about 30 pounds for a long time with decreased appetite Appreciate GI input and recommendation He has been tolerating liquid diet Plan for possible EGD when pulmonary status is improved Has been tolerating liquid diet without any problem May need EGD to evaluate esophageal lesions further He has been tolerating liquid diet without any problem of dysphagia or odynophagia Denies any problem with swallowing liquid diet Does not have any problem tolerating liquid diet (4) Idiopathic interstitial pneumonia: Plan: Will continue with the current antibiotic team's (5) Pneumomediastinum: (6) Transaminitis: Plan: Hepatitis panel has been negative Ultrasound did not show gallstones and sludge without any evidence of cholecystitis Will monitor LFTs for now LFTs are improving-will check repeat LFT tomorrow LFTs are better 7.1 cm cystic focus is seen between the liver and the right kidney Will get an abdominal CT scan with improvement of her general condition (7) Cholelithiasis: (8) HTN (hypertension): Plan Note from prior hospitalist: Patient with acute hypoxic respiratory failure due to idiopathic interstitial pneumonitis with evidence of pneumomediastinum on CT at the time of admission. Unclear etiology of pneumomediastinum and consider possible small bleb rupture versus possible air from esophagus with evidence of esophageal thickening on CT. Communication with GI and pulmonary team today. Continue oxygen support, continue steroids. GI and pulmonary to coordinate potential EGD and bronchoscopy when patient's respiratory status slightly more stable and improved. Anticipate patient may need intubation and mechanical ventilation with these procedures. Continue steroids Continue to titrate oxygen as able Continue antitussives Care management to coordinate return to longterm or alternate level of care when GI and pulmonary procedures completed and patient improved 51 minutes, coordinating care, review of records, care at the bedside Admission and Anticipated Discharge Date Admission Date: July 09, 2024 Subjective 07/14/2024 The patient was seen and examined in telemetry unit He has been complaining of increasing shortness of breath with cough and phlegm and also problem with swallowing for the last 4 to 6 weeks Still requiring 15 L oxygen via high flow nasal cannula to maintain saturation He has been tolerating liquid diet Showing a little improvement since admission 07/15/2024 The patient was seen and examined in ICU This condition did not improve and was having more shortness of breath with desaturation and he was transferred to ICU for continued care Has been feeling little better in ICU Denies any significant symptoms at rest but has shortness of breath 07/16/2024 Patient was seen and examined in ICU He has not been any better and is still complains of shortness of breath and some chest pain/tightness Still requiring high flow oxygen with FiO2 of 95% 25 L/min No fever no chills and denies any nausea and/or vomiting 07/17/2024 The patient was seen and examined in ICU His condition has been deteriorating Increasing shortness of breath and cough Remains very weak and lethargic He has been made DNI 07/18/2024 The patient was seen and examined in the ICU His condition has not improved though the chest x-ray is showing some improvement He has been stable for the last few days He will be downgraded to telemetry status 07/19/2024 The patient was seen and examined in ICU in the setting of telemetry Condition remains stable but critical Denies any symptoms but has been requiring FiO2 100% elevated at 25 L via high flow nasal cannula to maintain saturation Denies any fever and/or chills and no problem with swallowing Review of Systems Review of Systems: All systems reviewed and are unremarkable except as noted below Physical Exam Physical Exam: Lying in bed with acute distress due to shortness of breath Constitutional: + ill appearing and average body habitus Eyes: PERRL, conjunctivae normal, anicteric sclerae ENMT: external ear and nose normal, oropharynx normal Neck: trachea midline, no thyromegaly Respiratory: + respiratory distress Auscultation: + diminished lung sounds, + crackles (Bilateral crackles) and + wheezes (Occasional wheezing bilaterally) Cardiovascular: Rate/Rhythm: regular rate and regular rhythm; not tachycardic Heart Sounds: normal S1 and normal S2; no murmur Extremities: no edema Gastrointestinal (Abdomen): Inspection/Auscultation: normal bowel sounds; abdomen not distended Percussion/Palpation: abdomen soft; abdomen nontender Neurologic: normal touch/pain/proprioception and moves all extremities; no focal motor deficits Psychiatric: A+Ox3, euthymic affect Lymphatic: no cervical or axillary lymphadenopathy Results & Data Results & Data Vital Signs (Past 12 Hours) Vital Signs Temp Pulse Pulse Resp BP Pulse Ox O2 Del Method 07/19/24 11:43 64 22 90 High Flow Nasal Cannula 07/19/24 08:00 53 L 22 120/66 91 High Flow Nasal Cannula 07/19/24 08:00 36.9 C 07/19/24 08:00 46 L 07/19/24 08:00 High Flow Nasal Cannula 07/19/24 04:00 46 L 17 88 L 07/19/24 04:00 129/79 07/19/24 04:00 129/79 07/19/24 04:00 129/79 07/19/24 03:41 68 20 91 High Flow Nasal Cannula 07/19/24 03:30 46 L 19 89 L 07/19/24 03:00 122/71 07/19/24 03:00 122/71 07/19/24 02:57 46 L 15 91 07/19/24 02:03 47 L 18 93 07/19/24 02:00 133/75 07/19/24 02:00 133/75 07/19/24 02:00 133/75 07/19/24 01:57 46 L 14 92 07/19/24 01:09 62 29 H 84 L 07/19/24 00:06 52 L 17 92 07/19/24 00:00 50 L O2 Flow Rate FiO2 07/19/24 11:43 25 100 07/19/24 08:00 25 100 07/19/24 08:00 07/19/24 08:00 07/19/24 08:00 25 100 07/19/24 04:00 07/19/24 04:00 07/19/24 04:00 07/19/24 04:00 07/19/24 03:41 20 95 07/19/24 03:30 07/19/24 03:00 07/19/24 03:00 07/19/24 02:57 07/19/24 02:03 07/19/24 02:00 07/19/24 02:00 07/19/24 02:00 07/19/24 01:57 07/19/24 01:09 07/19/24 00:06 07/19/24 00:00 Laboratory Results Short CBC 07/19/24 Range/Units 07:55 WBC 15.91 H (4.8-10.8) K/ul Hgb 13.4 L (14.0-18.0) g/dl Hct 43.3 (42.0-52.0) % Plt Count 386 (130-400) K/uL BMP 07/19/24 07:55 Sodium 137 Potassium 3.3 L Chloride 97 L Carbon Dioxide 36 H BUN 59 H Creatinine 1.16 Glucose 108 H Calcium 9.1 Medications Administered Current Inpatient Medications Acetaminophen (Acetaminophen 325 Mg Tab) 650 mg PO Q8H PRN PRN Reason: Mild Pain (Scale 1, 2, 3) Stop: 08/15/24 16:00 Last Admin: 07/18/24 09:07 Dose: 650 mg Atropine Sulfate (Atropine Sulfate 0.1 Mg/Ml 10ml Syr) 1 mg IV Q3M PRN PRN Reason: symptomatic bradycardia Stop: 08/09/24 22:32 Guaifenesin/Codeine Phosphate (Guaifenesin/Codeine 200mg/20mg 10ml Udc) 10 ml PO Q8H [facility] Stop: 08/16/24 18:44 Last Admin: 07/19/24 10:57 Dose: 10 ml Heparin Sodium (Porcine) (Heparin Sod 5,000 Unit/0.5 Ml Vial) 5,000 units SQ Q12 [facility] Stop: 08/16/24 08:59 Last Admin: 07/19/24 08:19 Dose: 5,000 units Pantoprazole Sodium 40 mg/ (Syringe) 10 mls @ 5 mls/min IV BID [facility] Stop: 08/09/24 20:59 Last Admin: 07/19/24 08:20 Dose: 5 mls/min Piperacillin Sod/Tazobactam Sod (Zosyn) 4.5 gm in 100 mls @ 25 mls/hr IV Q8H [facility] Stop: 07/22/24 20:59 Last Infusion: 07/19/24 10:11 Dose: Infused Methylprednisolone 40 mg/ (Syringe) 0.64 mls @ 1.5 mls/min IV BID [facility] Stop: 08/17/24 20:59 Last Admin: 07/19/24 08:20 Dose: 1.5 mls/min Phenazopyridine HCl (Phenazopyridine Hcl 200 Mg Tab) 200 mg PO TID PRN PRN Reason: Dysuria Stop: 08/16/24 12:24 Last Admin: 07/17/24 18:09 Dose: 200 mg Tramadol HCl (Tramadol Hcl 50 Mg Tablet) 50 mg PO Q8H PRN PRN Reason: Pain Stop: 08/15/24 16:01 Last Admin: 07/18/24 09:06 Dose: 50 mg
--- NOTE | 2024-07-19 14:43 | Pulmonology Progress Note ---
Date of Service July 19, 2024 Assessment & Plan (1) Idiopathic interstitial pneumonia: (2) Acute hypoxic respiratory failure: (3) Pneumomediastinum: (4) Diffuse interstitial pulmonary fibrosis: Plan Impression: 74-year-old prisoner with acute on chronic hypoxemic respiratory failure and CT scan showing diffuse areas of pulmonary fibrosis as well as pneumomediastinum. He has been treated aggressively with antibiotics and steroids and unfortunately appears to have plateaued clinically. Recommendations: 1. Interstitial lung disease: Etiology unclear. Do not think that biopsy or bronchoscopy at this point in time would add much. The patient has completed a full course of steroids and is currently on 40 mg of Solu-Medrol twice daily as well as antibiotics. My suspicion for an infectious etiology is quite low. It is unclear how much of this was present previously but regardless, the patient appears clinically stagnant without much clinical improvement and it is unclear how much improvement might be achievable. Continue steroids for now with transition to prednisone 20 mg a day 2. Hypoxemic respiratory failure: Continue to attempt to wean oxygen as tolerated. Will place the patient on incentive spirometry and flutter valve to see if this offers him a clinical benefit. Out of bed to chair would certainly be beneficial. Would recommend discussing with case management discharge options for transition to next level of care 3. The patient is currently day #10 antibiotics. He is completed a full course of Zosyn as well as azithromycin. I think antibiotics can be discontinued at this point in time and follow patient clinically. Admission and Anticipated Discharge Date Admission Date: July 09, 2024 Subjective Patient seen and examined. He and reviewed. Discussed with off going supervisor pre wave. The patient reports his breathing is about the same. He is not having any aspiration issues. He denies any chest pain. He occasionally is producing small amounts of phlegm. He is not really coughing. No voice changes. He denies any crepitus. He has not had any significant lower extremity edema. He is essentially clinically stagnant but stable Review of Systems Review of Systems: All systems reviewed & are unremarkable except as noted in Subjective Physical Exam Constitutional: WD/WN, vitals as above Neck: trachea midline, no thyromegaly Respiratory: no respiratory distress, no labored breathing, no cough and not tachypneic Auscultation: + crackles and + bronchovesicular breath sounds; no wheezes Cardiovascular: RRR, no murmur, no edema Gastrointestinal (Abdomen): normal bowel sounds, soft, nontender, no hepatosplenomegaly Musculoskeletal: Extremities: extremities normal to inspection Skin: no rashes, warm and dry Neurologic: Nonfocal exam Lymphatic: no cervical lymphadenopathy Results & Data Results & Data Vital Signs (Past 12 Hours) Vital Signs Temp Pulse Pulse Resp BP Pulse Ox O2 Del Method 07/19/24 14:33 67 24 90 High Flow Nasal Cannula 07/19/24 11:43 64 22 90 High Flow Nasal Cannula 07/19/24 08:00 53 L 22 120/66 91 High Flow Nasal Cannula 07/19/24 08:00 36.9 C 07/19/24 08:00 46 L 07/19/24 08:00 High Flow Nasal Cannula 07/19/24 04:00 46 L 17 88 L 07/19/24 04:00 129/79 07/19/24 04:00 129/79 07/19/24 04:00 129/79 07/19/24 03:41 68 20 91 High Flow Nasal Cannula 07/19/24 03:30 46 L 19 89 L 07/19/24 03:00 122/71 07/19/24 03:00 122/71 07/19/24 02:57 46 L 15 91 O2 Flow Rate FiO2 07/19/24 14:33 25 100 07/19/24 11:43 25 100 07/19/24 08:00 25 100 07/19/24 08:00 07/19/24 08:00 07/19/24 08:00 25 100 07/19/24 04:00 07/19/24 04:00 07/19/24 04:00 07/19/24 04:00 07/19/24 03:41 20 95 07/19/24 03:30 07/19/24 03:00 07/19/24 03:00 07/19/24 02:57 Critical Care Results & Data Vital Signs (Past 12 Hours) Vital Signs Temp Pulse Pulse Resp BP Pulse Ox O2 Del Method 07/19/24 14:33 67 24 90 High Flow Nasal Cannula 07/19/24 11:43 64 22 90 High Flow Nasal Cannula 07/19/24 08:00 53 L 22 120/66 91 High Flow Nasal Cannula 07/19/24 08:00 36.9 C 07/19/24 08:00 46 L 07/19/24 08:00 High Flow Nasal Cannula 07/19/24 04:00 46 L 17 88 L 07/19/24 04:00 129/79 07/19/24 04:00 129/79 07/19/24 04:00 129/79 07/19/24 03:41 68 20 91 High Flow Nasal Cannula 07/19/24 03:30 46 L 19 89 L 07/19/24 03:00 122/71 07/19/24 03:00 122/71 07/19/24 02:57 46 L 15 91 O2 Flow Rate FiO2 07/19/24 14:33 25 100 07/19/24 11:43 25 100 07/19/24 08:00 25 100 07/19/24 08:00 07/19/24 08:00 07/19/24 08:00 25 100 07/19/24 04:00 07/19/24 04:00 07/19/24 04:00 07/19/24 04:00 07/19/24 03:41 20 95 07/19/24 03:30 07/19/24 03:00 07/19/24 03:00 07/19/24 02:57 Lab & Micro Results (Past 24 Hours) RBC 5.25 M/uL (4.70-6.10) 07/19/24 WBC 15.91 K/ul (4.8-10.8) H 07/19/24 Hgb 13.4 g/dl (14.0-18.0) L 07/19/24 Hct 43.3 % (42.0-52.0) 07/19/24 MCV 82.5 fL (80.0-100.0) 07/19/24 MCH 25.5 pg (25.0-34.0) 07/19/24 MCHC 30.9 g/dL (32.0-36.0) L 07/19/24 RDW Standard Deviation 44.8 fL (36.4-46.3) 07/19/24 RDW Coefficient of Variation 15.2 % (11.5-14.5) H 07/19/24 Plt Count 386 K/uL (130-400) 07/19/24 MPV 9.5 fL (9.4-12.4) 07/19/24 Neutrophils (%) (Auto) 84.0 % 07/19/24 Lymphocytes (%) (Auto) 5.0 % 07/19/24 Monocytes # (Auto) 1.59 K/uL (0.11-0.59) H 07/19/24 Eosinophils # (Auto) 0.01 K/uL (0.00-0.50) 07/19/24 Immature Granulocyte % (Auto) 0.8 % 07/19/24 Neutrophils # (Auto) 13.36 K/uL (1.40-6.50) H 07/19/24 Lymphocytes # (Auto) 0.80 K/uL (1.20-3.40) L 07/19/24 Monocytes # (Auto) 1.59 K/uL (0.11-0.59) H 07/19/24 Eosinophils # (Auto) 0.01 K/uL (0.00-0.50) 07/19/24 Basophils # (Auto) 0.02 K/uL (0.00-0.20) 07/19/24 Immature Granulocyte # (Auto) 0.13 K/uL (0.01-0.20) 4 Na 137 mmol/L (136-145) 07/19/24 K 3.3 mmol/L (3.5-5.1) L 07/19/24 Cl 97 mmol/L (98-107) L 07/19/24 CO2 36 mmol/L (21-32) H 07/19/24 Anion Gap 4 (3-11) 07/19/24 BUN 59 mg/dl (6-23) H 07/19/24 Creatinine 1.16 mg/dl (0.6-1.4) 07/19/24 Estimated GFR ( Amer) 71.5 ml/min 07/19/24 Estimated GFR (Non-Af Amer) 61.7 ml/min 07/19/24 BUN/Creatinine Ratio 50.9 (10-20) H 07/19/24 Glu 108 mg/dl (70-99(Fasting)) H 07/19/24 Ca 9.1 mg/dl (8.6-10.3) 07/19/24 Phosphorus Level 2.8 mg/dl (2.5-4.9) 07/19/24 Mg 2.7 mg/dl (1.7-2.4) H 07/19/24 07:55 Calcium Level 9.1 mg/dl (8.6-10.3) 07/19/24 07:55 Diagnostic Findings (Past 24 Hours) Chest X-Ray 07/19/24 06:00 XR chest 1V portable HISTORY: eval pneumomediastinum and poss small right pnuemo COMPARISON: Chest 07/18/2024. FINDINGS: Pneumomediastinum and the small right apical pneumothorax persists. The right pneumothorax demonstrates a maximal pleural gap of 10 mm. This is similar to the prior study. There are low lung volumes. Subcutaneous emphysema seen within the right chest wall and neck. The heart remains mildly enlarged. Patchy bibasilar densities persist. Peripheral densities within the right midlung zone are also unchanged. IMPRESSION: 1. No significant change in the pneumomediastinum and small right pneumothorax. 2. Bibasilar densities persist. ACT 112: Negative or not required by law. Electronically signed by: Duran Brandt M.D. 07/19/2024 8:02 AM I & O Totals 24 Hours 07/18/24 07/19/24 07/20/24 06:59 06:59 06:59 Intake Total 766 / 766 1329 / 1329 100 / 100 Output Total 660 / 660 1495 / 1495 75 / 75 Balance 106 / 106 -166 / -166 25 / 25 Cumulative 07/09/24 10:08 thru 07/19/24 10:11 Intake Total 47979.167 Output Total 92175 Balance -2475.833 RT Ventilator Mngmt (Last Documented) Ventilator Ordered Settings Respiratory Rate 24 07/19/24 14:33 Fraction of Inspired Oxygen 100 07/19/24 14:33 Ventilator - PT Measurements Respiratory Rate 24 PG Care Time/CCT Total # of Minutes Spent Total Time Spent with Patient: Total time spent is greater than 50% in coordination of care (as documented) at patient's floor/unit and/or counseling patient: Coding Level of Care Code 72583 SUB INP/OBS CARE 2/35MIN Diagnoses Idiopathic interstitial pneumonia J84.111 Acute hypoxic respiratory failure J96.01 Pneumomediastinum J98.2 Diffuse interstitial pulmonary fibrosis J84.10
[2024-07-19] MEDS: predniSONE 20 MG TAB PO SCH (16:24)
[2024-07-20 04:33] LABS: Basophils # (auto) 0.02 K/uL (0.00-0.20); Basophils % (auto) 0.2 %; Eosinophils # (auto) 0.01 K/uL (0.00-0.50); Eosinophils % (auto) 0.1 %; Hematocrit (blood only) 40.6 % (42.0-52.0); Hemoglobin 12.9 g/dl (14.0-18.0); Immature Granulocytes # (auto) 0.21 K/uL (0.01-0.20); Immature Granulocytes % (auto) 1.7 %; Lymphocytes # (auto) 0.87 K/uL (1.20-3.40); Lymphocytes % (auto) 6.9 %; Mean Corpuscular Hemoglobin 25.9 pg (25.0-34.0); Mean Corpuscular Hgb Conc 31.8 g/dL (32.0-36.0); Mean Corpuscular Volume 81.5 fL (80.0-100.0); Mean Platelet Volume 9.6 fL (9.4-12.4); Monocytes # (auto) 1.29 K/uL (0.11-0.59); Monocytes % (auto) 10.3 %; Neutrophils # (auto) 10.13 K/uL (1.40-6.50); Neutrophils % (auto) 80.8 %; Platelet Count 329 K/uL (130-400); RDW Coefficient of Variation 15.2 % (11.5-14.5); RDW Standard Deviation 44.4 fL (36.4-46.3); Red Blood Count 4.98 M/uL (4.70-6.10); White Blood Count 12.53 K/ul (4.8-10.8)
[2024-07-20 04:52] LABS: BUN Creatinine Ratio 57.4 (10-20); Creatinine Clr Calc Pharmacy 68.9 ml/min; Est GFR (African American) 92.2 ml/min; Est GFR (Non-African American) 79.6 ml/min; Magnesium 2.6 mg/dl (1.7-2.4); Phosphorus 2.5 mg/dl (2.5-4.9)
--- NOTE | 2024-07-20 10:15 | Palliative Care Consultation ---
Date of Consultation July 20, 2024 Assessment & Plan (1) Dyspnea and respiratory abnormalities: (2) Weakness generalized: (3) Advanced care planning/counseling discussion: A 30min face to face ACP meeting was held with pt He does not have any family/NOK He states he knows his time is running out: "I'm pretty sick, they told me it's not good. I have a lot of problems in my lungs with that fibrosis scarring and my smoking damage. it's not something that will get better or get cured." he has had numerous discussions with medical providers the past few days. He tells me he has been thinking about all the information given. He understands a ventilator will not cure him. He tells me he worries about suffering ole because the dyspnea prior to admission "was serious and really made me feel like i was going to pass out." We spoke about EOL trajectory for ILD, symptoms to manage and how that can be accomplished with TITLE I ASSISTANT he agreed to TITLE I ASSISTANT, orders written RT will assist with HFNC weaning and we will use opioids to help manage symptoms. He was pleased with this approach, seeking assurance a few times we would not allow him to suffer. (4) Palliative care by specialist: Discussed Palliative Medicine provides specialized medical care for patients with a serious illness. We offer a focus on quality of life through reduction of symptom burden/more control over their illness, for patients and their family. Palliative Medicine interventions can be given along with curative treatment. I specifically clarified we are not hospice, which is a visiting nurse service that focuses on care delivered at the very end of life. Plan As above TITLE I ASSISTANT written Wean HFNC and use meds to relieve distress Transition to [place] as able, Care mgt will help determine what is nasal cannula capacity for returning to senior living - RT asked this as part of identifying goals/ranges for HFNC weaning and transition to [place] Thank you for allowing us to participate in the ongoing care of this patient. Please page with any additional concerns. Eric Hinton DNP Director, Palliative Medicine History of Present Illness Reason for Consultation: "goals of care" Attending Physician: Aysha Martinez MD History of Present Illness Bunny is a 74-year-old male who resides at [facility]. he was brought to ED 07/09/24 for SOB and VELAZQUEZ; he reports 30# weight loss in past 1 month. Denies hemoptysis, +dry cough. No n/v/d/c. No heartburn. denies chest pain, headaches, chest pressure, visual changes or syncope. 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 A superimposed viral/atypical pneumonitis also remains in the differential diagnosis. Bunny is a former 54PY smoker Per ED note 07/09/24: "patient is a 74-year-old gentleman reports a history of heart issues presenting here today from the senior living due to shortness of breath. Evidently last week or 2 has been more short of breath not eating well. Evidently his had difficulty getting around at this and actually had some difficulty getting to the cafeteria to eat and present. Extensive former prior smoker. Not eating and drinking much and feels thirsty. No leg swelling. Denies abdominal pain or significant chest pain. Again shortness of breath worse with exertion but no falls or syncope. Noted for medical staff at the infirmary at the senior living to be hypoxic in the 80s and placed on mask at 10 L. Maybe a little bit of productive nature to the cough by his report. 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 Suspect undifferentiated diffuse parenchymal lung disease. Etiologies are broad including chronic eosinophilic pneumonia given the subpleural groundglass opacities versus NSIP versus chronic aspiration and an atypical pattern of UIP/IPF. Other possibilities include chronic atypical infection such as nontuberculous Mycobacterium and widespread pulmonary malignancy. Would benefit from outpatient PFTs and and outpatient rheumatologic workup. Empiric steroids reasonable at this time. Will add azithromycin for possible superimposed atypical bacterial infection. Respiratory viral panel was negative on admission. Follow-up HRCT as an outpatient also indicated in the next 4 to 6 weeks. (2) Pneumomediastinum: Patient with spontaneous pneumomediastinum likely secondary to cough. Agree with codeine as needed to suppress cough is much as possible. Other etiologies include microperforation related to esophageal wall thickening noted on CT chest. (3) Thickening of esophagus: Patient endorses a 30 pound weight loss with decreased appetite. Highly suspicious for possible malignancy. Will start the patient on Protonix 40 mg twice daily. GI consulted for possible EGD in the next few days once he stabilizes. Consider CT of the abdomen pelvis, but will defer to GI." Bunny is seen at bedside, no family present. 2 correctional officers are at the bedside. He is awake and alert and slightly anxious on high flow nasal cannula. He tells me he is aware that he has severe lung problems. He also tells me that he knows things are pretty serious and that he may not survive. He states that he has been processing the information that has been provided to him over the last several days. He shares his history of smoking which was a max of 2 packs a day for close to 50 years. Occupationally, he had exposures from shawn, ken, asbestos removal and silica exposures. He reports that he has been advised a ventilator at this junction will not change his outcomes. He is not sure he will make it back to his prior best known baseline. He has several questions about what to expect at this point. Allergies Allergy/AdvReac Type Severity Reaction Status Date / Time thiopental [From Pentothal] AdvReac Severe violence Verified 07/10/24 22:36 Home Medications Medication Instructions Recorded Confirmed Type atorvastatin 40 mg tablet 40 mg PO HS #0 tabs 07/14/14 07/09/24 History amlodipine 10 mg tablet 10 mg PO DAILY 07/09/24 07/09/24 History Patient History Surgical History H/O shoulder surgery Family History Other Cancer Social History Smoking Status: Former smoker Hx Alcohol Use: No Hx Substance Use: No Preferred Language: Nigerien Communication Ability: Effective Finish Off Operator Required: No Beliefs That Will Affect Care: None Current Living Situation: Other Current Living Situation Comment: [facility] inmate Feels Safe at Home: Yes Assistive Devices: None Review of Systems Review of Systems: All systems reviewed & are unremarkable except as noted in Subjective Physical Exam Physical Exam: frail elderly male cachectic/very thin AAOx3 Anxious and at times tearful Bitemp wasting PERRLA EOMIs Neck supple, no stridor, no JVD Resp effort inc at rest with use of accessory muscles crackles throughout upper to mid souza, dim bases, inc effort tachy s1s2 scaphoid abdomen, BS+ gen weakness skin pale, cool, no cyanosis Results & Data Vital Signs (Past 12 Hours) Vital Signs Temp Pulse Pulse Resp BP Pulse Ox O2 Del Method 07/20/24 09:12 High Flow Nasal Cannula 07/20/24 09:00 115/74 07/20/24 08:57 57 L 18 95 07/20/24 08:51 59 L 21 94 07/20/24 08:00 117/72 07/20/24 08:00 58 L 35 H 92 07/20/24 08:00 49 L 07/20/24 07:03 51 L 13 90 07/20/24 07:00 115/72 07/20/24 06:09 53 L 22 89 L 07/20/24 06:00 124/73 07/20/24 06:00 124/73 07/20/24 05:54 51 L 15 90 07/20/24 05:15 51 L 11 L 89 L 07/20/24 05:00 140/69 07/20/24 04:36 47 L 18 89 L 07/20/24 04:00 120/65 07/20/24 04:00 55 L 27 H 89 L 07/20/24 03:59 49 L 18 93 High Flow Nasal Cannula 07/20/24 03:30 57 L 22 92 07/20/24 03:00 124/72 07/20/24 03:00 124/72 07/20/24 02:51 49 L 15 91 07/20/24 02:12 52 L 21 89 L 07/20/24 01:03 50 L 16 94 07/20/24 01:00 12168 07/20/24 01:00 121/68 07/20/24 01:00 121/68 07/20/24 00:51 52 L 25 H 92 07/20/24 00:24 49 L 16 94 07/20/24 00:00 121/72 07/20/24 00:00 55 L 07/19/24 23:57 50 L 15 93 07/19/24 23:40 50 L 18 93 High Flow Nasal Cannula 07/19/24 23:18 52 L 16 92 07/19/24 23:00 145/93 H 07/19/24 23:00 145/93 H 07/19/24 23:00 145/93 H 07/19/24 23:00 36.4 C L 55 L 22 145/93 H 92 07/19/24 22:48 49 L 16 92 O2 Flow Rate FiO2 07/20/24 09:12 25 100 07/20/24 09:00 07/20/24 08:57 07/20/24 08:51 07/20/24 08:00 07/20/24 08:00 07/20/24 08:00 07/20/24 07:03 07/20/24 07:00 07/20/24 06:09 07/20/24 06:00 07/20/24 06:00 07/20/24 05:54 07/20/24 05:15 07/20/24 05:00 07/20/24 04:36 07/20/24 04:00 07/20/24 04:00 07/20/24 03:59 25 100 07/20/24 03:30 07/20/24 03:00 07/20/24 03:00 07/20/24 02:51 07/20/24 02:12 07/20/24 01:03 07/20/24 01:00 07/20/24 01:00 07/20/24 01:00 07/20/24 00:51 07/20/24 00:24 07/20/24 00:00 07/20/24 00:00 07/19/24 23:57 07/19/24 23:40 25 100 07/19/24 23:18 07/19/24 23:00 07/19/24 23:00 07/19/24 23:00 07/19/24 23:00 07/19/24 22:48 Laboratory Results 07/20/24 07/19/24 07/19/24 Range/Units 03:59 07:55 07:16 WBC 12.53 H 15.91 H (4.8-10.8) K/ul RBC 4.98 5.25 (4.70-6.10) M/uL Hgb 12.9 L 13.4 L (14.0-18.0) g/dl Hct 40.6 L 43.3 (42.0-52.0) % MCV 81.5 82.5 (80.0-100.0) fL MCH 25.9 25.5 (25.0-34.0) pg MCHC 31.8 L 30.9 L (32.0-36.0) g/dL RDW Std Deviation 44.4 44.8 (36.4-46.3) fL RDW Coeff of Allen 15.2 H 15.2 H (11.5-14.5) % Plt Count 329 386 (130-400) K/uL MPV 9.6 9.5 (9.4-12.4) fL Immature Gran % (Auto) 1.7 0.8 % Neut % (Auto) 80.8 84.0 % Lymph % (Auto) 6.9 5.0 % [place] % (Auto) 10.3 10.0 % Eos % (Auto) 0.1 0.1 % Baso % (Auto) 0.2 0.1 % Neut # (Auto) 10.13 H 13.36 H (1.40-6.50) K/uL Lymph # (Auto) 0.87 L 0.80 L (1.20-3.40) K/uL [place] # (Auto) 1.29 H 1.59 H (0.11-0.59) K/uL Eos # (Auto) 0.01 0.01 (0.00-0.50) K/uL Baso # (Auto) 0.02 0.02 (0.00-0.20) K/uL Immature Gran # (Auto) 0.21 H 0.13 (0.01-0.20) K/uL Polychromasia Sodium 139 137 (136-145) mmol/L Potassium 4.0 D 3.3 L (3.5-5.1) mmol/L Chloride 101 97 L (98-107) mmol/L Carbon Dioxide 35 H 36 H (21-32) mmol/L Anion Gap 3 4 (3-11) BUN 54 H 59 H (6-23) mg/dl Creatinine 0.94 1.16 (0.6-1.4) mg/dl Est Cr Clr Drug Dosing 68.9 55.9 ml/min Est GFR ( Amer) 92.2 71.5 ml/min Est GFR (Non-Af Amer) 79.6 61.7 ml/min BUN/Creatinine Ratio 57.4 H 50.9 H (10-20) Glucose 103 H 108 H (70-99(Fasting)) mg/dl POC Glucose 115 H (70-99) mg/dl Calcium 9.0 9.1 (8.6-10.3) mg/dl Phosphorus 2.5 2.8 D (2.5-4.9) mg/dl Magnesium 2.6 H 2.7 H (1.7-2.4) mg/dl Total Bilirubin (0.2-1.0) mg/dl Direct Bilirubin (0-0.2) mg/dl AST (13-39) U/L ALT (7-52) U/L Alkaline Phosphatase (34-104) U/L Total Creatine Kinase (30-223) U/L Total Protein (6.0-8.3) gm/dl Albumin (3.4-5.0) gm/dl Globulin (2.5-4.0) gm/dl Albumin/Globulin Ratio (0.9-2) Procalcitonin (0-0.5) ng/ml CHARITY Screen BRANDON-1 Antibody SS-A/Ro Antibody SS-B/La Antibody Sm (Del Rosario) Antibody FOOT DRILL OPERATOR Antibody Scl-70 Scleroderma Ab Anti-ds DNA (Crithidia) Anti-Centromere Ab Complement C3 Complement C4 Hepatitis A IgM Ab (NON-REACTIVE) Hep Bs Antigen (Negative) Hep B Core IgM Ab (NON-REACTIVE) Hepatitis C Antibody (Negative) Beta-(1,3)-D-Glucan B-(1,3)-D-Glucan Intrp 07/18/24 07/18/24 07/17/24 Range/Units 04:43 04:42 10:02 WBC 16.46 H (4.8-10.8) K/ul RBC 5.17 (4.70-6.10) M/uL Hgb 13.5 L (14.0-18.0) g/dl Hct 41.1 L (42.0-52.0) % MCV 79.5 L (80.0-100.0) fL MCH 26.1 (25.0-34.0) pg MCHC 32.8 (32.0-36.0) g/dL RDW Std Deviation 42.8 (36.4-46.3) fL RDW Coeff of Allen 15.2 H (11.5-14.5) % Plt Count 434 H (130-400) K/uL MPV 9.3 L (9.4-12.4) fL Immature Gran % (Auto) 0.9 % Neut % (Auto) 90.7 % Lymph % (Auto) 2.9 % [place] % (Auto) 5.4 % Eos % (Auto) 0.0 % Baso % (Auto) 0.1 % Neut # (Auto) 14.94 H (1.40-6.50) K/uL Lymph # (Auto) 0.48 L (1.20-3.40) K/uL [place] # (Auto) 0.89 H (0.11-0.59) K/uL Eos # (Auto) 0.00 (0.00-0.50) K/uL Baso # (Auto) 0.01 (0.00-0.20) K/uL Immature Gran # (Auto) 0.14 (0.01-0.20) K/uL Polychromasia Sodium 133 L (136-145) mmol/L Potassium 3.6 (3.5-5.1) mmol/L Chloride 96 L (98-107) mmol/L Carbon Dioxide 32 (21-32) mmol/L Anion Gap 5 (3-11) BUN 66 H (6-23) mg/dl Creatinine 1.17 (0.6-1.4) mg/dl Est Cr Clr Drug Dosing 55.4 ml/min Est GFR ( Amer) 70.8 ml/min Est GFR (Non-Af Amer) 61.1 ml/min BUN/Creatinine Ratio 56.4 H (10-20) Glucose 169 H (70-99(Fasting)) mg/dl POC Glucose 152 H (70-99) mg/dl Calcium 9.3 (8.6-10.3) mg/dl Phosphorus 3.9 (2.5-4.9) mg/dl Magnesium 2.7 H (1.7-2.4) mg/dl Total Bilirubin (0.2-1.0) mg/dl Direct Bilirubin (0-0.2) mg/dl AST (13-39) U/L ALT (7-52) U/L Alkaline Phosphatase (34-104) U/L Total Creatine Kinase (30-223) U/L Total Protein (6.0-8.3) gm/dl Albumin (3.4-5.0) gm/dl Globulin (2.5-4.0) gm/dl Albumin/Globulin Ratio (0.9-2) Procalcitonin (0-0.5) ng/ml CHARITY Screen BRANDON-1 Antibody SS-A/Ro Antibody SS-B/La Antibody Sm (Del Rosario) Antibody FOOT DRILL OPERATOR Antibody Scl-70 Scleroderma Ab Anti-ds DNA (Crithidia) Anti-Centromere Ab Complement C3 Complement C4 Hepatitis A IgM Ab (NON-REACTIVE) Hep Bs Antigen (Negative) Hep B Core IgM Ab (NON-REACTIVE) Hepatitis C Antibody (Negative) Beta-(1,3)-D-Glucan B-(1,3)-D-Glucan Intrp 07/17/24 07/16/24 07/16/24 Range/Units 04:21 17:06 03:24 WBC 20.80 H 10.56 (4.8-10.8) K/ul RBC 5.41 5.02 (4.70-6.10) M/uL Hgb 14.1 12.8 L (14.0-18.0) g/dl Hct 42.9 40.2 L (42.0-52.0) % MCV 79.3 L 80.1 (80.0-100.0) fL MCH 26.1 25.5 (25.0-34.0) pg MCHC 32.9 31.8 L (32.0-36.0) g/dL RDW Std Deviation 42.5 41.7 (36.4-46.3) fL RDW Coeff of Allen 15.1 H 14.6 H (11.5-14.5) % Plt Count 498 H 382 (130-400) K/uL MPV 9.6 9.3 L (9.4-12.4) fL Immature Gran % (Auto) 0.9 1.2 % Neut % (Auto) 91.8 88.8 % Lymph % (Auto) 2.0 5.5 % [place] % (Auto) 5.2 4.4 % Eos % (Auto) 0.0 0.0 % Baso % (Auto) 0.1 0.1 % Neut # (Auto) 19.08 H 9.38 H (1.40-6.50) K/uL Lymph # (Auto) 0.42 L 0.58 L (1.20-3.40) K/uL [place] # (Auto) 1.09 H 0.46 (0.11-0.59) K/uL Eos # (Auto) 0.00 0.00 (0.00-0.50) K/uL Baso # (Auto) 0.03 0.01 (0.00-0.20) K/uL Immature Gran # (Auto) 0.18 0.13 (0.01-0.20) K/uL Polychromasia 1+ Sodium 133 L 133 L (136-145) mmol/L Potassium 3.8 4.5 (3.5-5.1) mmol/L Chloride 95 L 94 L (98-107) mmol/L Carbon Dioxide 31 33 H (21-32) mmol/L Anion Gap 7 6 (3-11) BUN 53 H 36 H (6-23) mg/dl Creatinine 1.34 1.11 (0.6-1.4) mg/dl Est Cr Clr Drug Dosing 48.4 58.4 ml/min Est GFR ( Amer) 60.1 75.4 ml/min Est GFR (Non-Af Amer) 51.8 65.1 ml/min BUN/Creatinine Ratio 39.6 H 32.4 H (10-20) Glucose 170 H 142 H (70-99(Fasting)) mg/dl POC Glucose 170 H (70-99) mg/dl Calcium 9.5 9.5 (8.6-10.3) mg/dl Phosphorus 3.7 4.0 D (2.5-4.9) mg/dl Magnesium 2.5 H 2.5 H (1.7-2.4) mg/dl Total Bilirubin 2.6 H (0.2-1.0) mg/dl Direct Bilirubin 1.3 H (0-0.2) mg/dl AST 25 (13-39) U/L ALT 69 H (7-52) U/L Alkaline Phosphatase 145 H (34-104) U/L Total Creatine Kinase (30-223) U/L Total Protein 7.7 (6.0-8.3) gm/dl Albumin 2.9 L (3.4-5.0) gm/dl Globulin (2.5-4.0) gm/dl Albumin/Globulin Ratio (0.9-2) Procalcitonin (0-0.5) ng/ml CHARITY Screen BRANDON-1 Antibody SS-A/Ro Antibody SS-B/La Antibody Sm (Del Rosario) Antibody FOOT DRILL OPERATOR Antibody Scl-70 Scleroderma Ab Anti-ds DNA (Crithidia) Anti-Centromere Ab Complement C3 Complement C4 Hepatitis A IgM Ab (NON-REACTIVE) Hep Bs Antigen (Negative) Hep B Core IgM Ab (NON-REACTIVE) Hepatitis C Antibody (Negative) Beta-(1,3)-D-Glucan B-(1,3)-D-Glucan Intrp 07/15/24 07/15/24 07/14/24 Range/Units 16:44 07:03 07:43 WBC 14.02 H (4.8-10.8) K/ul RBC 5.04 (4.70-6.10) M/uL Hgb 12.8 L (14.0-18.0) g/dl Hct 40.9 L (42.0-52.0) % MCV 81.2 (80.0-100.0) fL MCH 25.4 (25.0-34.0) pg MCHC 31.3 L (32.0-36.0) g/dL RDW Std Deviation 42.6 (36.4-46.3) fL RDW Coeff of Allen 14.9 H (11.5-14.5) % Plt Count 377 (130-400) K/uL MPV 9.2 L (9.4-12.4) fL Immature Gran % (Auto) 1.6 % Neut % (Auto) 86.1 % Lymph % (Auto) 4.7 % [place] % (Auto) 7.3 % Eos % (Auto) 0.1 % Baso % (Auto) 0.2 % Neut # (Auto) 12.08 H (1.40-6.50) K/uL Lymph # (Auto) 0.66 L (1.20-3.40) K/uL [place] # (Auto) 1.02 H (0.11-0.59) K/uL Eos # (Auto) 0.01 (0.00-0.50) K/uL Baso # (Auto) 0.03 (0.00-0.20) K/uL Immature Gran # (Auto) 0.22 H (0.01-0.20) K/uL Polychromasia Sodium 132 L (136-145) mmol/L Potassium 4.5 (3.5-5.1) mmol/L Chloride 97 L (98-107) mmol/L Carbon Dioxide 32 (21-32) mmol/L Anion Gap 3 (3-11) BUN 28 H (6-23) mg/dl Creatinine 0.86 (0.6-1.4) mg/dl Est Cr Clr Drug Dosing 75.4 ml/min Est GFR ( Amer) 99.0 ml/min Est GFR (Non-Af Amer) 85.4 ml/min BUN/Creatinine Ratio 32.6 H (10-20) Glucose 118 H (70-99(Fasting)) mg/dl POC Glucose 173 H (70-99) mg/dl Calcium 9.0 (8.6-10.3) mg/dl Phosphorus 3.0 (2.5-4.9) mg/dl Magnesium 2.3 (1.7-2.4) mg/dl Total Bilirubin 2.9 H (0.2-1.0) mg/dl Direct Bilirubin (0-0.2) mg/dl AST 43 H (13-39) U/L ALT 96 H (7-52) U/L Alkaline Phosphatase 146 H (34-104) U/L Total Creatine Kinase (30-223) U/L Total Protein 7.2 (6.0-8.3) gm/dl Albumin 2.8 L (3.4-5.0) gm/dl Globulin 4.4 H (2.5-4.0) gm/dl Albumin/Globulin Ratio 0.6 L (0.9-2) Procalcitonin (0-0.5) ng/ml CHARITY Screen Pending BRANDON-1 Antibody Pending SS-A/Ro Antibody Pending SS-B/La Antibody Pending Sm (Del Rosario) Antibody Pending FOOT DRILL OPERATOR Antibody Pending Scl-70 Scleroderma Ab Pending Anti-ds DNA (Crithidia) Pending Anti-Centromere Ab Pending Complement C3 Pending Complement C4 Pending Hepatitis A IgM Ab (NON-REACTIVE) Hep Bs Antigen (Negative) Hep B Core IgM Ab (NON-REACTIVE) Hepatitis C Antibody (Negative) Beta-(1,3)-D-Glucan Pending B-(1,3)-D-Glucan Intrp Pending 07/13/24 07/13/24 Range/Units 14:44 06:20 WBC (4.8-10.8) K/ul RBC (4.70-6.10) M/uL Hgb (14.0-18.0) g/dl Hct (42.0-52.0) % MCV (80.0-100.0) fL MCH (25.0-34.0) pg MCHC (32.0-36.0) g/dL RDW Std Deviation (36.4-46.3) fL RDW Coeff of Allen (11.5-14.5) % Plt Count (130-400) K/uL MPV (9.4-12.4) fL Immature Gran % (Auto) % Neut % (Auto) % Lymph % (Auto) % [place] % (Auto) % Eos % (Auto) % Baso % (Auto) % Neut # (Auto) (1.40-6.50) K/uL Lymph # (Auto) (1.20-3.40) K/uL [place] # (Auto) (0.11-0.59) K/uL Eos # (Auto) (0.00-0.50) K/uL Baso # (Auto) (0.00-0.20) K/uL Immature Gran # (Auto) (0.01-0.20) K/uL Polychromasia Sodium (136-145) mmol/L Potassium (3.5-5.1) mmol/L Chloride (98-107) mmol/L Carbon Dioxide (21-32) mmol/L Anion Gap (3-11) BUN (6-23) mg/dl Creatinine (0.6-1.4) mg/dl Est Cr Clr Drug Dosing ml/min Est GFR ( Amer) ml/min Est GFR (Non-Af Amer) ml/min BUN/Creatinine Ratio (10-20) Glucose (70-99(Fasting)) mg/dl POC Glucose (70-99) mg/dl Calcium (8.6-10.3) mg/dl Phosphorus (2.5-4.9) mg/dl Magnesium (1.7-2.4) mg/dl Total Bilirubin (0.2-1.0) mg/dl Direct Bilirubin (0-0.2) mg/dl AST (13-39) U/L ALT (7-52) U/L Alkaline Phosphatase (34-104) U/L Total Creatine Kinase 41 (30-223) U/L Total Protein (6.0-8.3) gm/dl Albumin (3.4-5.0) gm/dl Globulin (2.5-4.0) gm/dl Albumin/Globulin Ratio (0.9-2) Procalcitonin 0.17 (0-0.5) ng/ml CHARITY Screen BRANDON-1 Antibody SS-A/Ro Antibody SS-B/La Antibody Sm (Del Rosario) Antibody FOOT DRILL OPERATOR Antibody Scl-70 Scleroderma Ab Anti-ds DNA (Crithidia) Anti-Centromere Ab Complement C3 Complement C4 Hepatitis A IgM Ab NON-REACTIVE (NON-REACTIVE) Hep Bs Antigen Negative (Negative) Hep B Core IgM Ab NON-REACTIVE (NON-REACTIVE) Hepatitis C Antibody Negative (Negative) Beta-(1,3)-D-Glucan B-(1,3)-D-Glucan Intrp Diagnostic Findings Chest CTA 07/09/24 10:39 CHEST CTA for PULMONARY ARTERIES CT DOSE: 682.66 mGy.cm HISTORY: Dyspnea TECHNIQUE: Multiaxial CT images of the chest were performed following the intravenous administration of contrast to evaluate the pulmonary arteries. 3D/Maximal intensity projection images were also obtained. Sagittal and coronal reformations were also reviewed. A dose lowering technique was utilized adhering to the principles of ALARA. COMPARISON STUDY: None. FINDINGS: There are multiple old mild chronic compression deformity is within the mid to lower thoracic spine. No acute fractures identified. Postoperative changes within the left humeral head. Limited views of the upper abdomen demonstrate a normal spleen and right adrenal gland. The left adrenal gland is not included on this study. There are few punctate calcified granulomas within the spleen. Normal thyroid gland. Bagv-dp-cnljelzh circumferential thickening throughout the esophagus with a tiny hiatus hernia. No mediastinal or hilar lymphadenopathy. The heart is mildly enlarged. No pleural or pericardial effusions. Mild calcified plaque within the normal caliber thoracic aorta. No evidence for an aortic dissection. Mild coronary artery calcifications are noted. No filling defects within the pulmonary arteries to suggest a pulmonary embolus. No pneumothorax. Pneumomediastinum is noted. The central airways are patent. The etiology of the pneumomediastinum is not clearly identified on this study. There are low lung volumes with peripheral and basilar predominant interstitial thickening and scattered airspace opacities. The majority these airspace opacities demonstrate a groundglass appearance. There is mild bronchiectasis. There is a 6 mm left lower lobe nodule on image 56. IMPRESSION: 1. No evidence for a pulmonary embolus. 2. Pneumomediastinum without clear etiology on this study. 3. [id number] circumferential thickening throughout the esophagus. 4. Peripheral interstitial thickening and patchy airspace opacities which favors pulmonary fibrosis. A superimposed viral/atypical pneumonitis also remains in the differential diagnosis. 5. A 6 mm nodule within the left lower lobe. Follow-up recommended as described above. 6. Additional findings as described above. Please refer to below summary of Fleischner criteria recommendations for follow- up of incidental CT nodules (Latrell Emanuel, Guidelines for management of small pulmonary nodules detected on CT scans: A statement from the Fleischner Society, Radiology 237: [id number].) SOLID NODULES Solitary nodule size: <6 mm * Low risk patients: no follow-up needed * high risk patients: optional CT at 12 months Solitary nodule size: 6-8 mm * Low risk patients: follow-up at 6-12 months, then consider further follow-up at 18-24 months * high risk patients: initial follow-up CT at 6-12 months and then at 18-24 months if no change Solitary nodule size: >8 mm * either low or high risk patients - consider follow-up CT at 3 months, and/or CT-PET, and/or biopsy Multiple nodules size: <6 mm * Low risk patients: no routine follow-up * high risk patients: optional CT at 12 months Multiple nodules size: 6-8 mm * Low risk patients: follow-up at 3-6 months, then consider further follow-up at 18-24 months * high risk patients: follow-up at 3-6 months, then at 18-24 months if no change Multiple nodules size: >8 mm * Low risk patients: follow-up at 3-6 months, then consider further follow-up at 18-24 months * high risk patients: follow-up at 3-6 months, then at 18-24 months if no change Note: newly detected indeterminate nodule in persons 35 years of age or older. * Low risk patients: minimal or absent history of smoking and/or other known risk factors * high risk patients: history of smoking or of other known risk factors (e.g. first degree relative with lung cancer, or exposure to asbestos, radon, uranium) * if a nodule up to 8 mm is partly solid or is ground glass further follow-up is required after 24 months to exclude possible slow growing adenocarcinoma (ARCHIE) SUBSOLID NODULES Solitary pure ground-glass nodule * nodule size <6 mm - no CT follow-up required * nodule size >=6 mm - follow-up CT at 6-12 months, then every 2 years until 5 years Solitary part-solid nodule * nodule size <6 mm - no CT follow-up required * nodule size >=6 mm - follow-up CT at 3-6 months. If unchanged, and solid component remains <6 mm, then annual follow-up for 5 years Multiple subsolid nodules * nodule size <6 mm - follow-up CT at 3-6 months, consider further follow-up at 2 and 4 years if stable * nodule size >=6 mm - follow-up CT at 3-6 months, subsequent management based on the most suspicious nodule(s) ACT 112: Positive. There are findings on this exam that require communication between the performing entity and the patient following Patient Test Result Information Act ([place] Act 112) guidelines. Electronically signed by: Duran Brandt M.D. 07/09/2024 11:54 AM Chest X-Ray 07/09/24 10:39 SINGLE VIEW CHEST CLINICAL HISTORY: Dyspnea FINDINGS: An AP, portable, upright chest radiograph is compared to study dated 07/14/2014. The examination is degraded by portable technique and apical lordotic positioning. The heart is enlarged. The pulmonary vasculature is not congested. There is diffuse interstitial thickening and subpleural reticulation. More focal airspace opacities are seen in the mid to lower lungs bilaterally, greater on the right. No large pleural effusion or pneumothorax is seen. The skeletal structures are osteopenic. The bony thorax is grossly intact. Postsurgical change is seen in the left proximal humerus. IMPRESSION: 1. Cardiomegaly without radiographic evidence of congestive failure. 2. Findings suggest chronic interstitial/fibrotic lung disease. This is new from 2013. 3. There are more focal airspace opacities in the mid to lower lungs bilaterally. A superimposed pneumonia is not excluded. Clinical correlation will be required and radiographic follow-up is recommended ACT 112: Negative or not required by law. Electronically signed by: Scout Felton M.D. 07/09/2024 11:08 AM Liver Ultrasound 07/09/24 14:59 ULTRASOUND RIGHT UPPER QUADRANT ABDOMEN CLINICAL HISTORY: Elevated hepatic transaminases. COMPARISON STUDY: No priors. TECHNIQUE: Real-time, grayscale, and color flow sonography of the right upper quadrant of the abdomen was performed. Images are reviewed in the transverse and longitudinal planes. FINDINGS: Liver: The liver is normal in size and heterogeneous in echotexture. There is no intrahepatic biliary ductal dilatation. The main portal vein is patent. A 1.3 cm cyst is noted in the right lobe. An indeterminant 7.1 cm cystic focus is seen between the right lobe of the liver and the right kidney. Gallbladder: The gallbladder is filled with stones and sludge. There is no gallbladder wall thickening or pericholecystic fluid. A sonographic Duggan's sign is reportedly absent. The common bile duct measures up to 0.4 cm in jeannette meter. Pancreas: Visualized portions of the pancreatic head and body are normal in appearance. The splenic vein is patent. Right kidney: Survey images of the right kidney demonstrate normal size and echotexture. There is no hydronephrosis. Ascites: None. IMPRESSION: 1. Gallstones and biliary sludge with no sonographic evidence of acute cholecystitis. 2. Hepatic echotexture is heterogeneous. 3. An indeterminant 7.1 cm cystic focus is seen between the liver and the right kidney. This is not highly suspicious. If warranted this could be further assessed with an abdominal CT scan. ACT 112: Negative or not required by law. Electronically signed by: Scout Felton M.D. 07/09/2024 4:49 PM Chest X-Ray 07/10/24 08:12 INSPIRATORY/EXPIRATORY CHEST X-RAYS CLINICAL HISTORY: Hypoxia. FINDINGS: AP, portable, upright chest radiographs are performed in inspiration and expiration. Comparison is made to chest x-ray and chest CT dated 07/09/2024. The heart is enlarged. There is prominence of the pulmonary vasculature. Again seen is diffuse interstitial thickening and subpleural reticulation. More focal airspace opacities are seen in the mid to lower lungs bilaterally. No large pleural effusion or pneumothorax is identified. Pneumomediastinum seen by CT is not apparent on x-ray. The skeletal structures are osteopenic. The bony thorax is grossly intact. Postsurgical change is seen in the left proximal humerus. IMPRESSION: 1. Cardiomegaly with prominence of the pulmonary vasculature. Clinically clinically for evidence of fluid overload/congestive change. 2. Findings of chronic interstitial/fibrotic lung disease are again suggested. Superimposed airspace opacities at the lung bases are similar to yesterday and a superimposed infectious/inflammatory pneumonitis is not excluded. 3. Pneumomediastinum seen by CT is not apparent on x-ray. ACT 112: Negative or not required by law. Electronically signed by: Scout Felton M.D. 07/10/2024 9:09 AM Chest X-Ray 07/11/24 07:53 XR chest 1V portable HISTORY: hypoxia COMPARISON: Chest 07/10/2024. FINDINGS: Low lung volumes. No pneumothorax. The patient's known pneumomediastinum is not well visualized by this modality. There are low lung volumes with chronic fibrotic change again noted. This is similar to the prior study. Patchy bibasilar densities persist and are nonspecific. The heart remains mildly enlarged. IMPRESSION: 1. Chronic fibrotic changes again noted. Bibasilar densities persist and may correspond to the patient's pulmonary fibrosis. A superimposed pneumonitis would be difficult to exclude. 2. The patient's known pneumomediastinum is better appreciated on the recent CT. ACT 112: Negative or not required by law. Electronically signed by: Duran Brandt M.D. 07/11/2024 8:14 AM Chest X-Ray 07/14/24 09:21 XR chest 1V portable CLINICAL HISTORY: shortness of breath COMPARISON STUDY: Chest CT July 09, 2024. Chest radiograph July 11, 2024. FINDINGS: There is no pneumothorax or pleural effusion. Cardiomediastinal silhouette is stable. Interstitial thickening with lower lung opacities is unchanged in appearance. Pneumomediastinum shown on chest CT of July 09, 2024 is not well depicted by radiography. IMPRESSION: 1. Interstitial thickening suggestive of chronic fibrotic change. 2. No change in lower lung opacities which may related to interstitial lung disease. Superimposed pneumonia could appear similar. ACT 112: Negative or not required by law. Electronically signed by: Fabian Medrano M.D. 07/14/2024 9:47 AM Chest X-Ray 07/15/24 07:35 XR chest 1V portable HISTORY: Shortness of breath. COMPARISON: Chest 07/06/2024. FINDINGS: No pneumothorax. Chronic interstitial thickening/fibrotic changes again noted. The heart remains mildly enlarged. There are low lung volumes. No acute fractures. Patchy bibasilar densities persist. No new focal lung consolidations. No evidence for pulmonary edema. IMPRESSION: No significant change in the chronic fibrotic change and patchy bibasilar densities. ACT 112: Negative or not required by law. Electronically signed by: Duran Brandt M.D. 07/15/2024 8:[address] 07/15/24 08:51 CT SCAN OF THE CHEST WITHOUT IV CONTRAST CLINICAL HISTORY: Hypoxia. COMPARISON STUDY: Chest CT dated 07/09/2004. Chest x-ray dated 07/15/2024. TECHNIQUE: CT scan of the thorax was performed from the thoracic inlet to the upper abdomen. Images are reviewed in the axial, sagittal, and coronal planes. IV contrast was not administered for this examination as per the referring clinician. A dose lowering technique was utilized adhering to the principles of ALARA. CT DOSE: 569.15 mGy.cm FINDINGS: Thyroid: Imaged portions of the thyroid gland are normal in size and attenuation. Thoracic aorta: There is mild atherosclerotic calcification of the thoracic aorta, which is normal in caliber and demonstrates standard 3-vessel arch anatomy. Heart: The heart is enlarged noting trace pericardial effusion. The coronary arteries are densely calcified. Lungs and pleural spaces: Emphysematous change is suspected. There is diffuse subpleural reticulation with groundglass and parenchymal opacities seen throughout both lungs. This shows a subpleural and lower lobe predominance, and is typical for chronic interstitial/fibrotic lung disease. There is mild traction bronchiectasis in the lower lobes. No honeycombing is seen. There are increasing bibasilar airspace opacities as compared to the 07/09/2024 examination. No pneumothorax is seen. The trachea and central airways are clear. There are trace pleural effusions. Mediastinum: Pneumomediastinum persists. There is also a small amount of deep soft tissue gas in the lower neck. There is no mediastinal lymphadenopathy. Winsome: Not well assessed without IV contrast. Axillae: There is no axillary lymphadenopathy. Upper abdomen: There are numerous calcified gallstones. The esophagus appears diffusely thick walled. Calcified granulomas are noted in the spleen. Skeletal structures: The skeletal structures are osteopenic. Degenerative change and mild compression deformities are noted in the thoracic spine. No lytic or blastic bony lesions are seen. Postsurgical change is noted in the left proximal humerus. Arthritic change is seen in the shoulders. IMPRESSION: 1. Emphysematous change is suspected and there is evidence of chronic interstit ial/fibrotic lung disease as detailed above. 2. Cardiomegaly. 3. There is increasing airspace consolidation with a subpleural and lower lobe predominance as compared to the 07/09/2024 examination. This could represent a superimposed pneumonia, pulmonary edema, hemorrhage, and/or ARDS. Clinical correlation will be essential and radiographic follow-up to resolution is recommended. 4. Trace pleural effusions. 5. Pneumomediastinum persists, and there is a small amount of deep soft tissue gas in the lower neck. 6. No pneumothorax is seen. 7. Cholelithiasis. 8. The esophagus appears diffusely thick-walled. Correlate clinically for evidence of esophagitis. If warranted this could be further assessed with endoscopy. 9. Additional findings as above. ACT 112: Negative or not required by law. Electronically signed by: Scout Felton M.D. 07/15/2024 3:35 PM Chest X-Ray 07/15/24 11:57 SINGLE VIEW CHEST CLINICAL HISTORY: Hypoxia. FINDINGS: An AP, portable, upright chest radiograph is compared to study performed earlier the same day 07/15/2024 and correlated with chest CT dated 07/09/2024. The heart is enlarged. The pulmonary vasculature is not congested. Again seen is diffuse interstitial thickening and subpleural reticulation. More focal airspace opacities are seen in the mid to lower lungs bilaterally. No large pleural effusion or pneumothorax is identified. Pneumomediastinum seen by CT is not apparent on x-ray. The skeletal structures are osteopenic. The bony thorax is grossly intact. Postsurgical change is seen in the left proximal humerus. IMPRESSION: 1. Cardiomegaly without radiographic evidence of congestive failure. 2. Findings of chronic interstitial/fibrotic lung disease are similar previous. Superimposed airspace opacities at the lung bases are unchanged. 3. Pneumomediastinum seen by CT is not apparent on x-ray. There is no pneumothorax. ACT 112: Negative or not required by law. Electronically signed by: Scout Felton M.D. 07/15/2024 1:37 PM Chest X-Ray 07/16/24 07:00 XR chest 1V portable CLINICAL HISTORY: eval lung souza and pneumomediastinum COMPARISON STUDY: Chest radiograph and chest CT July 15, 2024. FINDINGS: There is no pneumothorax. Trace bilateral pleural effusions are present. Pneumomediastinum is similar to prior CT. Cardiomegaly is unchanged. Underlying interstitial thickening is present. Bibasilar opacities persist. IMPRESSION: 1. Redemonstration of pneumomediastinum. No pneumothorax. 2. Persistent bibasilar opacities which could reflect pneumonia, pulmonary edema or hemorrhage superimposed upon interstitial lung disease. 3. Trace bilateral pleural effusions. ACT 112: Negative or not required by law. Electronically signed by: Fabian Medrano M.D. 07/16/2024 8:32 AM Chest X-Ray 07/17/24 07:00 XR chest 1V portable CLINICAL HISTORY: eval lung souza and pneumomediastinum COMPARISON STUDY: Chest radiograph July 16, 2024. FINDINGS: Pneumomediastinum has moderately increased. Soft tissue gas within neck has developed. A small right pneumothorax with superior pleural separation of 1.4 cm has developed. There is no left pneumothorax. Cardiomediastinal silhouette is stable. Interstitial thickening and bibasilar airspace opacities persist. IMPRESSION: 1. Increase in pneumomediastinum with interval development of a small right pneumothorax and soft tissue gas within the neck. Continued short-term radiographic follow-up is recommended. 2. Persistent interstitial thickening and bibasilar opacities. The findings favor interstitial lung disease with superimposed multifocal pneumonia. ACT 112: Negative or not required by law. Electronically signed by: Fabian Medrano M.D. 07/17/2024 7:09 AM Chest X-Ray 07/17/24 13:00 XR chest 1V portable CLINICAL HISTORY: f/u COMPARISON STUDY: Chest radiograph performed earlier today. FINDINGS: Pneumomediastinum and subcutaneous gas within neck are similar to prior exam. A small right pneumothorax is also similar to prior exam. Cardiomediastinal silhouette is stable. There are small bilateral pleural effusions. Interstitial thickening and bibasilar opacities persist. IMPRESSION: 1. No change in pneumomediastinum, subcutaneous gas within the neck and a small right pneumothorax since prior chest radiograph. 2. Interstitial thickening and lower lung opacities, similar to prior exam. The findings favor interstitial lung disease with superimposed pneumonia. ACT 112: Negative or not required by law. Electronically signed by: Fabian Medrano M.D. 07/17/2024 1:17 PM Chest X-Ray 07/18/24 06:00 XR chest 1V portable CLINICAL HISTORY: eval pneumomediastinum and poss small right pneumo COMPARISON STUDY: Chest radiograph July 17, 2024 at 1:00 PM. FINDINGS: Pneumomediastinum has decreased in amount. A small right pneumothorax has decreased in size. Superior pleural separation is 1.2 cm. Soft tissue gas within neck persists. Interstitial thickening and bibasilar opacities are again noted. Cardiomediastinal silhouette is stable. IMPRESSION: 1. Decrease in pneumomediastinum and decrease in size of a small right pneumothorax. Persistent soft tissue gas within the neck. 2. No change in interstitial thickening and bibasilar opacities. ACT 112: Negative or not required by law. Electronically signed by: Fabian Medrano M.D. 07/18/2024 7:05 AM Chest X-Ray 07/19/24 06:00 XR chest 1V portable HISTORY: eval pneumomediastinum and poss small right pnuemo COMPARISON: Chest 07/18/2024. FINDINGS: Pneumomediastinum and the small right apical pneumothorax persists. The right pneumothorax demonstrates a maximal pleural gap of 10 mm. This is similar to the prior study. There are low lung volumes. Subcutaneous emphysema seen within the right chest wall and neck. The heart remains mildly enlarged. Patchy bibasilar densities persist. Peripheral densities within the right midlung zone are also unchanged. IMPRESSION: 1. No significant change in the pneumomediastinum and small right pneumothorax. 2. Bibasilar densities persist. ACT 112: Negative or not required by law. Electronically signed by: Duran Brandt M.D. 07/19/2024 8:02 AM PG Care Time/CCT Total # of Minutes Spent Total Time Spent with Patient: Total time spent is greater than 50% in coordination of care (as documented) at patient's floor/unit and/or counseling patient: I spent 90 minutes overall addressing this case: 15 min in medical data review/discussion with referring provider(s) and/or preparation for the visit 15 min in direct interaction with the patient/exam 30 min in Advance Care Planning/Goals of Care discussions as detailed above in note (must be >16min) 15 min in subsequent review and synthesis of assessment and plan 15 min communicating with other providers regarding the patient's case: nursing RT, primary team, pulm med, care mgt, CCM; Advanced Care Planning 20364 Advanced Care Planning 30 [place] [address] IN/OBS CONSULT LVL 4,60M (25 - SIGNIFICANT, SEPARATELY IDENTIFIABLE ) Patient Type New Medical Decision Making High Complexity Diagnoses Dyspnea and respiratory abnormalities R06.00; R06.89 Weakness generalized R53.1 Advanced care planning/counseling discussion Z71.89 Palliative care by specialist Z51.5 Additional Codes Advanced Care Planning - 37697 Advanced Care Planning 30 Min: 83801 Advanced Care Planning 30 Min ([id number])
[2024-07-20] MEDS ORDERED: HYDROmorphone INJ 0.5 MG/0.5 ML SYR IV PRN (11:34)
[2024-07-20] MEDS ORDERED: HYDROmorphone INJ 1 MG/ML SYRINGE IV PRN (11:42)
[2024-07-20] MEDS: HYDROmorphone INJ 0.5 MG/0.5 ML SYR IV PRN (12:20)
[2024-07-20] MEDS: LORazepam 2 MG/1 ML VIAL IV PRN (12:21)
[2024-07-20] MEDS: BUMETANIDE 0.5 MG in SYRINGE 0 ML IV STA (13:29)
--- NOTE | 2024-07-20 15:12 | Hospitalist Progress Note ---
Date of Service July 20, 2024 Assessment & Plan (1) Palliative care by specialist: Plan: Palliative Care Encounter Condition is getting worse day by day Still requiring high flow oxygen to maintain saturation Palliative care was consulted and the patient is made comfort care only Will transfer to the Medical floor to continue comfort care This was discussed with the physician in the the [facility] Below is the documentation of the progress notes during this hospitalization: (2) Diffuse interstitial pulmonary fibrosis: Plan: Presented with increasing shortness of breath and now has acute hypoxic respiratory failure Secondary to idiopathic interstitial pulmonary fibrosis with interstitial pneumonia Negative BioFire on admission Complicated by pneumomediastinum Appreciate pulmonary input and recommendation Has been on intravenous Solu-Medrol, antibiotics, nebulized bronchodilator and oxygen Awaiting further serological test High risk of any anesthesia or lung biopsy and any procedure Condition deteriorated and he was transferred to ICU for continued care Clinically little better in ICUwill continue current management Not any better today and is still complains to have shortness of breath and minimal chest pain involving the center of the chest Continue with current management and the patient may need intubation down the line Clinically not any better and the patient is made DNI by the flamer sealer Will continue current management His condition remains stable for the last 48 hours Has been showing minimal improvement Will continue current management as per the flamer sealer He will be downgraded to telemetry status Remains stable but criticalcontinue current management Prognosis remains very poor Pneumomediastinum Spontaneous likely secondary to cough Denies any pain or any other significant symptoms at rest Without any esophageal injury or leak Chest x-ray did show persistence of pneumomediastinum without any change If requires intubation will need no PEEP and/or decreasing PEEP Chest x-ray showed possible increasing pneumomediastinum with a small pneumothorax on the left Repeat chest x-ray showing some improvement of the pneumomediastinum and pneumothorax Repeat chest x-ray today showed no significant change with the pneumomediastinum and pneumothorax and the bibasilar densities persist (3) Acute hypoxic respiratory failure: (4) Esophageal abnormality: Plan: Has been complaining of problems with swallowing for at least 4 to 6 weeks Significant weight loss of about 30 pounds for a long time with decreased appetite Appreciate GI input and recommendation He has been tolerating liquid diet Plan for possible EGD when pulmonary status is improved Has been tolerating liquid diet without any problem May need EGD to evaluate esophageal lesions further He has been tolerating liquid diet without any problem of dysphagia or odynophagia Denies any problem with swallowing liquid diet Does not have any problem tolerating liquid diet (5) Idiopathic interstitial pneumonia: Plan: Will continue with the current antibiotic team's (6) Pneumomediastinum: (7) Transaminitis: Plan: Hepatitis panel has been negative Ultrasound did not show gallstones and sludge without any evidence of cholecystitis Will monitor LFTs for now LFTs are improving-will check repeat LFT tomorrow LFTs are better 7.1 cm cystic focus is seen between the liver and the right kidney Will get an abdominal CT scan with improvement of her general condition (8) Cholelithiasis: (9) HTN (hypertension): Plan Note from prior hospitalist: Patient with acute hypoxic respiratory failure due to idiopathic interstitial pneumonitis with evidence of pneumomediastinum on CT at the time of admission. Unclear etiology of pneumomediastinum and consider possible small bleb rupture versus possible air from esophagus with evidence of esophageal thickening on CT. Communication with GI and pulmonary team today. Continue oxygen support, continue steroids. GI and pulmonary to coordinate potential EGD and bronchoscopy when patient's respiratory status slightly more stable and improved. Anticipate patient may need intubation and mechanical ventilation with these procedures. Continue steroids Continue to titrate oxygen as able Continue antitussives Care management to coordinate return to the [facility] or alternate level of care when GI and pulmonary procedures completed and patient improved 51 minutes, coordinating care, review of records, care at the bedside Admission and Anticipated Discharge Date Admission Date: July 09, 2024 Subjective 07/14/2024 The patient was seen and examined in telemetry unit He has been complaining of increasing shortness of breath with cough and phlegm and also problem with swallowing for the last 4 to 6 weeks Still requiring 15 L oxygen via high flow nasal cannula to maintain saturation He has been tolerating liquid diet Showing a little improvement since admission 07/15/2024 The patient was seen and examined in ICU This condition did not improve and was having more shortness of breath with desaturation and he was transferred to ICU for continued care Has been feeling little better in ICU Denies any significant symptoms at rest but has shortness of breath 07/16/2024 Patient was seen and examined in ICU He has not been any better and is still complains of shortness of breath and some chest pain/tightness Still requiring high flow oxygen with FiO2 of 95% 25 L/min No fever no chills and denies any nausea and/or vomiting 07/17/2024 The patient was seen and examined in ICU His condition has been deteriorating Increasing shortness of breath and cough Remains very weak and lethargic He has been made DNI 07/18/2024 The patient was seen and examined in the ICU His condition has not improved though the chest x-ray is showing some improvement He has been stable for the last few days He will be downgraded to telemetry status 07/19/2024 The patient was seen and examined in ICU in the setting of telemetry Condition remains stable but critical Denies any symptoms but has been requiring FiO2 100% elevated at 25 L via high flow nasal cannula to maintain saturation Denies any fever and/or chills and no problem with swallowing 07/20/2024 The patient was seen and examined in ICU in the setting of telemetry His condition has gotten worse Not being able to decrease the oxygen level to maintain saturation Palliative care was involved and the patient is made comfort care This was discussed with the physician in the the [facility] Review of Systems Review of Systems: All systems reviewed and are unremarkable except as noted below Physical Exam Physical Exam: Lying in bed with acute distress due to shortness of breath Constitutional: + ill appearing and average body habitus Eyes: PERRL, conjunctivae normal, anicteric sclerae ENMT: external ear and nose normal, oropharynx normal Neck: trachea midline, no thyromegaly Respiratory: + respiratory distress Auscultation: + diminished lung sounds, + crackles (Bilateral crackles) and + wheezes (Occasional wheezing bilaterally) Cardiovascular: Rate/Rhythm: regular rate and regular rhythm; not tachycardic Heart Sounds: normal S1 and normal S2; no murmur Extremities: no edema Gastrointestinal (Abdomen): Inspection/Auscultation: normal bowel sounds; abdomen not distended Percussion/Palpation: abdomen soft; abdomen nontender Neurologic: normal touch/pain/proprioception and moves all extremities; no focal motor deficits Psychiatric: A+Ox3, euthymic affect Lymphatic: no cervical or axillary lymphadenopathy Results & Data Results & Data Vital Signs (Past 12 Hours) Vital Signs Temp Pulse Pulse Resp BP Pulse Ox O2 Del Method 07/20/24 14:02 85 L High Flow Nasal Cannula 07/20/24 14:00 61 12 77 L 07/20/24 13:51 119/68 09/03/24 13:47 123/68 07/20/24 13:42 56 L 12 87 L 07/20/24 13:33 124/73 07/20/24 13:25 91 High Flow Nasal Cannula 07/20/24 13:02 93 High Flow Nasal Cannula 07/20/24 13:00 120/68 07/20/24 13:00 61 18 91 07/20/24 12:39 95 High Flow Nasal Cannula 07/20/24 12:03 59 L 24 93 07/20/24 12:00 124/74 07/20/24 11:06 64 29 H 91 07/20/24 10:45 78 29 H 88 L 07/20/24 10:33 59 L 22 94 07/20/24 10:00 114/84 07/20/24 09:18 66 25 H 93 07/20/24 09:12 High Flow Nasal Cannula 07/20/24 09:00 115/74 07/20/24 08:57 57 L 18 95 07/20/24 08:51 59 L 21 94 07/20/24 08:00 36.4 C L 07/20/24 08:00 117/72 07/20/24 08:00 58 L 35 H 92 07/20/24 08:00 49 L 07/20/24 07:03 51 L 13 90 07/20/24 07:00 115/72 07/20/24 06:09 53 L 22 89 L 07/20/24 06:00 124/73 07/20/24 06:00 124/73 07/20/24 05:54 51 L 15 90 07/20/24 05:15 51 L 11 L 89 L 07/20/24 05:00 140/69 07/20/24 04:36 47 L 18 89 L 07/20/24 04:00 120/65 07/20/24 04:00 55 L 27 H 89 L 07/20/24 03:59 49 L 18 93 High Flow Nasal Cannula 07/20/24 03:30 57 L 22 92 O2 Flow Rate FiO2 07/20/24 14:02 25 40 07/20/24 14:00 07/20/24 13:51 07/20/24 13:47 07/20/24 13:42 07/20/24 13:33 07/20/24 13:25 25 60 07/20/24 13:02 25 80 07/20/24 13:00 07/20/24 13:00 07/20/24 12:39 25 100 07/20/24 12:03 07/20/24 12:00 07/20/24 11:06 07/20/24 10:45 07/20/24 10:33 07/20/24 10:00 07/20/24 09:18 07/20/24 09:12 25 100 07/20/24 09:00 07/20/24 08:57 07/20/24 08:51 07/20/24 08:00 07/20/24 08:00 07/20/24 08:00 07/20/24 08:00 07/20/24 07:03 07/20/24 07:00 07/20/24 06:09 07/20/24 06:00 07/20/24 06:00 07/20/24 05:54 07/20/24 05:15 07/20/24 05:00 07/20/24 04:36 07/20/24 04:00 07/20/24 04:00 07/20/24 03:59 25 100 07/20/24 03:30 Laboratory Results Short CBC 07/20/24 Range/Units 03:59 WBC 12.53 H (4.8-10.8) K/ul Hgb 12.9 L (14.0-18.0) g/dl Hct 40.6 L (42.0-52.0) % Plt Count 329 (130-400) K/uL BMP 07/20/24 03:59 Sodium 139 Potassium 4.0 D Chloride 101 Carbon Dioxide 35 H BUN 54 H Creatinine 0.94 Glucose 103 H Calcium 9.0 Medications Administered Current Inpatient Medications Acetaminophen (Acetaminophen 325 Mg Tab) 650 mg PO Q8H PRN PRN Reason: Mild Pain (Scale 1, 2, 3) Stop: 08/15/24 16:00 Last Admin: 07/18/24 09:07 Dose: 650 mg Glycopyrrolate (Glycopyrrolate 0.2 Mg/Ml Vial) 0.4 mg IV Q4H PRN PRN Reason: Rattling Secretions or Pulm Congestion Stop: 08/19/24 11:33 Hydromorphone HCl (Hydromorphone Inj 0.5 Mg/0.5 Ml Syr) 0.5 mg IV Q15M PRN PRN Reason: Pain or Respiratory Distress Stop: 08/03/24 11:33 Last Admin: 07/20/24 14:45 Dose: 0.5 mg Hydromorphone HCl (Hydromorphone Inj 1 Mg/Ml Syringe) 1 mg IV Q30M PRN PRN Reason: SOB,pain,HF de-escalation Stop: 07/23/24 11:41 Pantoprazole Sodium 40 mg/ (Syringe) 10 mls @ 5 mls/min IV BID [facility] Stop: 08/09/24 20:59 Last Admin: 07/20/24 08:23 Dose: 5 mls/min Lorazepam (Lorazepam 2 Mg/1 Ml Vial) 1 mg IV Q2H PRN PRN Reason: Anxiety,agitation,spasms Stop: 08/19/24 11:33 Last Admin: 07/20/24 14:45 Dose: 1 mg Prednisone (Prednisone 20 Mg Tab) 20 mg PO DAILY [facility] Stop: 08/18/24 14:59 Last Admin: 07/20/24 08:23 Dose: 20 mg
[2024-07-20] MEDS: GLYCOPYRROLATE 0.2 MG/ML VIAL IV PRN (16:37)
[2024-07-20 16:56] LABS: Anti Nuclear Antibody Screen NEGATIVE (NEGATIVE); Anti-Centromere Ab <1.0 NEG AI (<1.0 NEG); Anti-SS-A 4.2 POS AI (<1.0 NEG); Anti-SS-B <1.0 NEG AI (<1.0 NEG); Complement C3 167 mg/dL (82-185); DNA ds Crithidia NEGATIVE (NEGATIVE); Fungitell (1-3)-B-D-Glucan <31 pg/mL; JO 1 Antibody <1.0 NEG AI (<1.0 NEG); RNP Antibody <1.0 NEG AI (<1.0 NEG); Sm Antibody <1.0 NEG AI (<1.0 NEG)
[2024-07-20] MEDS: HYDROmorphone INJ 1 MG/ML SYRINGE IV PRN (17:28)
--- NOTE | 2024-07-21 07:10 | Pulmonology Progress Note ---
Date of Service July 21, 2024 Assessment & Plan (1) Idiopathic interstitial pneumonia: (2) Acute hypoxic respiratory failure: (3) Pneumomediastinum: (4) Diffuse interstitial pulmonary fibrosis: Plan Impression: 74-year-old prisoner with acute on chronic hypoxemic respiratory failure and CT scan showing diffuse areas of pulmonary fibrosis as well as pneumomediastinum. He has been treated aggressively with antibiotics and steroids and unfortunately appears to have plateaued clinically. He met with palliative care and has elected to pursue a palliative care approach. Recommendations: 1. Interstitial lung disease: Etiology unclear. No significant improvement with high-dose steroids antibiotics and treatment of all potentially reversible causes. Palliative care engaged. This is entirely appropriate. Continue palliative measures. Pulmonary will sign off. Feel free to contact us with questions or concerns Admission and Anticipated Discharge Date Admission Date: July 09, 2024 Subjective Patient seen and examined. Appreciate palliative care input. The patient elected to pursue comfort care measures. He is being managed palliatively at this point in time. Review of Systems Review of Systems: Deferred Physical Exam Physical Exam: Deferred Results & Data Results & Data Vital Signs (Past 12 Hours) Vital Signs O2 Del Method 07/20/24 20:40 Room Air PG Care Time/CCT Total # of Minutes Spent Total Time Spent with Patient: Total time spent is greater than 50% in coordination of care (as documented) at patient's floor/unit and/or counseling patient: Coding Level of Care Code 07836 SUB INP/OBS CARE 2/35MIN Diagnoses Idiopathic interstitial pneumonia J84.111 Acute hypoxic respiratory failure J96.01 Pneumomediastinum J98.2 Diffuse interstitial pulmonary fibrosis J84.10
[2024-07-21] MEDS: HYDROmorphone/NSS 100 MG/100 ML BAG IV SCH (11:03)
[2024-07-21] MEDS: HYDROmorphone BOLUS from BAG IV PRN (16:20)
[2024-07-21] MEDS ORDERED: HYDROmorphone BOLUS from BAG IV PRN (16:24)
[2024-07-21] MEDS ORDERED: LORazepam 2 MG/1 ML VIAL IV PRN (16:24)
--- NOTE | 2024-07-21 16:28 | Hospitalist Progress Note ---
Date of Service July 21, 2024 Assessment & Plan (1) Diffuse interstitial pulmonary fibrosis: (2) Acute hypoxic respiratory failure: (3) Esophageal abnormality: (4) Idiopathic interstitial pneumonia: (5) Pneumomediastinum: (6) Transaminitis: (7) Cholelithiasis: (8) HTN (hypertension): Plan Patient with rapidly progressive interstitial lung disease that has not responded to aggressive maximal therapies. Currently on comfort measures only Patient requiring significant amounts of medications to provide comfort we will transition to IV Dilaudid drip Continue other comfort measures Patient reevaluated this afternoon. Continues to be tachypneic and moderate distress. Nursing reports IV Dilaudid drip has helped. Encourage nursing staff to use IV Dilaudid boluses as ordered, increased frequency to every 15 minutes Increase Dilaudid drip to 1.2 mg/h Continue Ativan as needed for comfort 54 minutes spent in evaluation of patient, coordination of care throughout the day Admission and Anticipated Discharge Date Admission Date: July 09, 2024 Subjective Patient requiring almost hourly Dilaudid for comfort Physical Exam Physical Exam: Constitutional: Minimally responsive, moderate respiratory distress HEENT: Mucous membranes dry Lungs: Coarse breath sounds, tachypneic, decreased CV: S1-S2, regular, mildly tachycardic Abdomen: Soft, nontender, nondistended Extremities: No significant edema Neuro: Minimally responsive Psych: Nonverbal Results & Data Results & Data Vital Signs (Past 12 Hours) Vital Signs O2 Del Method 07/21/24 07:31 Room Air
--- NOTE | 2024-07-21 17:22 | Death Pronouncement Note ---
Date of Service July 21, 2024 Pronouncement Note Admission Date July 09, 2024 Date and Time of Date of : 07/21/24 Time of : 16:55 Preliminary Cause of (1) Acute hypoxic respiratory failure: (2) Diffuse interstitial pulmonary fibrosis: (3) Esophageal abnormality: (4) Idiopathic interstitial pneumonia: (5) Pneumomediastinum: (6) Transaminitis: (7) Cholelithiasis: (8) HTN (hypertension): Summary Patient was admitted to the hospitalist advancing and progressive shortness of breath. He was aggressively treated for bacterial pneumonia and interstitial pulmonary fibrosis. Despite maximum therapies patient did not improve and continue to require high flows of oxygen. After in-depth discussion over goals of care with the patient patient shows to pursue comfort care. Aggressive interventions were withdrawn. Medications were used to provide comfort. And patient in peace on 07/21/2024 at 1655 hrs. Additional Data Attending physician: Buster Medina DO
--- NOTE | 2024-07-21 17:26 | Discharge Summary ---
Discharge Summary Date of Service July 21, 2024 Principal Dx & Hospital Course #1 = Principal Diagnosis (1) Acute hypoxic respiratory failure: (2) Diffuse interstitial pulmonary fibrosis: (3) Esophageal abnormality: (4) Idiopathic interstitial pneumonia: (5) Pneumomediastinum: (6) Transaminitis: (7) Cholelithiasis: (8) HTN (hypertension): Plan Patient presenting the emergency room with increasing respiratory distress, dyspnea on exertion and noted to be hypoxic. Evaluation in the emergency room showed findings consistent with pneumonia and also some pneumomediastinum. Patient was admitted to the hospital. He was supported with oxygen. Treated with broad-spectrum antibiotics. Patient was also placed on steroids for pulmonary fibrosis and interstitial lung disease. Through the course of his hospitalization patient required significant high concentration of oxygen. Pulmonary consultation and GI consultations were obtained and to evaluate the pneumomediastinum. CT of the chest did show an abnormality of the esophagus and there was concern there may have been a small perforation as a cause of pneumomediastinum. However, the patient's respiratory condition prevented him from ever being able to undergo EGD. Other etiology of the pneumomediastinum may have been due to his significant coughing caused a small bleb to rupture. Patient did not respond to maximal therapies. Continuing to require high flow oxygen. Palliative care consultation was obtained. After patient was able to discuss and evaluate his overall goals of care he was transition to comfort care. On the day the patient he was started on a Dilaudid drip to provide relief to his respiratory discomfort and distress. This was effective. Patient on 07/21/2024 at 1655 hrs. in peace and comfortable. Notes For Next Care Provider Medication Changes From Visit Not applicable Admission HPI Per Admitting Provider Pt presents from [facility] with SOB that he describes as 'huffing and puffing' that has been intermittent, associated with going to the bathroom. He has the hardest time going to the bathroom; has to stop and lean on the table. He says this has started a few weeks ago. He reports that he has been coughing x 4-6 weeks with clear phlegm. Pt states that he started to feel pain in his chest. No fever. His throat is sore from coughing. Patient states that his appetite has not been the same over the past 4-5 weeks. Leukocytosis 12.51, biofire negative. Chest CTA revealed Pneumomediastinum without clear etiology on this study. This was discussed with Pulmonary who stated to avoid flutter valve and positive pressure. Pt is a previous smoker, stopped in 2019. Denies alcohol or recreational drug use. Pt denies chest pain, lightheadedness, dizziness, abdominal pain and tenderness, dysuria, falls and trauma. On examination, He is AAOx4 and in no apparent distress. He is on 3LNC but is able to communicate in complete sentences. The admitting attending, he heard fine crackles. Pt will be admitted for further evaluation and management of his SOB/pneumomediastinum. Patient has fine crackles, will hold abx for now. ESR 102; will continue IV steroids. He also has dysuria, will check a UA/culture. Discharge Exam Patient had No pulse palpated, no respiratory sounds auscultated No heart tones auscultated No pupillary response Updated Medication List Medication Instructions Recorded Confirmed Type atorvastatin 40 mg tablet 40 mg PO HS #0 tabs 07/14/14 07/09/24 History amlodipine 10 mg tablet 10 mg PO DAILY 07/09/24 07/09/24 History Hospital Stay Data Consultations 07/09/24 13:56 ED Decision to Admit Stat 07/09/24 14:50 Consult Pulmonology Routine 07/10/24 14:12 Consult Gastroenterology Routine 07/20/24 10:03 Consult Palliative Care Routine Diagnostic Imagining Performed 07/09/24 10:39 CT angio chest PE protocol Stat 07/09/24 14:59 US liver Routine 07/15/24 08:51 CT chest diagnostic wo con Stat Total Time Total Time Spent Total Time Spent (In Minutes): 56
== END 2024-07-21 18:29 | disposition expired | DRG 196 ==
LOC: ED 10:14 → EDINP 13:58 → SUATTDRO 13:58 → 2S 18:11 → 1E 07-15 11:09 → 3E 07-20 16:38